=== PATIENT | male | born 1930 | race Caucasian/White ===

== ENCOUNTER 2016-11-04 20:28 | Inpatient (IN) | payer MEDICARE ==
[~2016-11-04] VITALS: Ht 170.2 cm; Wt 98.5 kg
[2016-11-04] VITALS (8 sets, daily range): BP systolic 64–155; BP diastolic 28–98; PULSE 53–61; RESP 11–20; O2SAT 90–100
[~2016-11-04 20:28] MED LIST: ASPI325T32 PO; CARV3.122 PO; GLPZ5T PO; LOSA100T29 PO; OMEP20CA11 PO; ROSU40TA20 PO
--- NOTE | 2016-11-04 20:49 | ED.REPORT ---
HPI-General Illness Date of Service Nov 04, 2016 ED Provider: Keith Mcgowan MD Pt is an 85 y/o male anticoagulated on Brilinta (anti-platelet) w/ a hx of NIDDM , cardiomyopathy, CAD, HTN, chronic back pain, presenting to the ED with his due to generalized weakness onset today. The patient has been having worsening trouble walking which the believes is attributed to his chronic back pain but today was so generally weak that he was unable to stand for himself. He c/o associated SOB, lightheadedness. He has apparently had no PO fluids today. His children say that there has been some speech change and change in mental status but not specifically dysarthria or dysphasia. The patient denies headache, blurred vision, CP, abdominal pain, focal numbness or weakness. The patient has been taking Tylenol repeatedly for his chronic back pain. He was seen by his PCP and diagnosed with pneumonia about 2 weeks ago with good resolve of his symptoms. CODE STATUS: FULL CODE History is limited due to patient condition. Nursing Notes Stated Complaint: BACK PAIN Chief Complaint: Neuro Symptoms/ Deficits Nursing Notes Reviewed: Yes Allergies: Coded Allergies: clopidogrel (Verified Allergy, Intermediate, 05/31/16) Scheduled Aspirin (Aspirin) 325 Mg Tablet 325 MG PO DAILY Carvedilol (Carvedilol) 3.125 Mg Tablet 3.125 MG PO BID Glipizide (Glipizide) 5 Mg Tablet 2.5 MG PO BID Losartan Potassium (Losartan Potassium) 100 Mg Tablet 50 MG PO DAILY Omeprazole (Omeprazole) 20 Mg Capsule.dr 20 MG PO DAILY Rosuvastatin Calcium (Rosuvastatin Calcium) 40 Mg Tablet 40 MG PO DAILY General Time Seen by MD: 20:48 Chief Complaint Weakness Hx Obtained From: Patient, Spouse, Other family... Arrived By: Wheelchair Sudden in Onset?: No Onset Occurred: 1 day ago Symptom Duration: Since onset Severity: Current: No pain currently Severity: Maximum: No pain Past Medical History Past Medical History Anticoagulated on Brilinta Chronic back pain Type II diabetes Cardiomyopathy History coronary disease Hypertension Peripheral vascular disease Paralyzed vocal cord GERD Past Surgical History Bioprosthetic valve replacement (2007) Smoking History Former Smoker Social History Alcohol Use: Denies alcohol use Other Social History: , Local resident Ambulatory Status Independent Review of Systems Unable to Obtain ROS Patient condition, Mental status Full Review of Systems Constitutional: Reports: Weakness - generalized, Denies: Chills, Fever Respiratory: Reports: Shortness of breath, Denies: Non-productive cough Cardiovascular: Denies: Chest pain Neurologic: Reports: Confusion, Lightheaded, Problem walking, Denies: Focal weakness, Headache, Numbness Complete sys rev & neg: except as marked. Physical Exam Vital Signs Vital Signs Date Time Temp Pulse Resp B/P Pulse Ox O2 Delivery O2 Flow Rate FiO2 11/04/16 22:08 113/34 11/04/16 22:06 60 18 75/28 96 Room Air 11/04/16 21:28 56 18 93/46 96 Room Air 11/04/16 20:34 36.7 53 20 64/38 90 Room Air Initial VS: Reviewed, Vital signs abnormal Head / Eyes: Atraumatic, Normocephalic, PERRL ENT: Mucous membranes moist, Conjunctiva normal, No scleral icterus Neck: Supple, Full range of motion Cardiovascular: Regular rate & rhythm, Heart sounds normal, Intact distal pulses Extremities: Vascular intact, Neuro intact, No swelling, No tenderness Skin: Warm, Dry, No cyanosis General/Constitutional: Awake, Alert, Cooperative Distress / Hydration: Positive: Distress severe Appearance / Presentation: Positive: Pale Hypotensive Somnolent Respiratory / Chest: Atraumatic, No stridor, No chest tenderness, No chest wall deformity, No crepitus Resp Distress / Stridor: Positive: Resp distress mild Bilateral crackles Abdomen: Atraumatic, Soft, Non-tender, No guarding, No rebound Rectum / Perineum: Atraumatic Geoffrey melena present Neurologic: Oriented X3, Speech NL, No motor deficits, No sensory deficits Somnolent Interpretation & Diagnostics Lab Results Interpretation Result Diagram: 11/04/16205711/04/162057 Test 11/04/16 20:58 11/04/16 21:01 11/04/16 21:25 White Blood Count 12.1th/mm3 (3.8-10.1) Red Blood Count 2.70mil/mm3 (4.40-5.80) Hemoglobin 7.3g/dL (13.8-17.2) Hematocrit 22.9% (41.0-50.0) Mean Corpuscular Volume 84.8fL (81-100) Mean Corpuscular Hemoglobin 27.0pg (27.0-35.0) Mean Corpuscular Hemoglobin Concent 31.9% (32.0-37.0) Red Cell Distribution Width 15.7% (12.3-15.4) Platelet Count 145bil/L (150-400) Neutrophils (%) (Auto) 81.4% (40-74) Lymphocytes (%) (Auto) 10.1% (14-46) Monocytes (%) (Auto) 8.2% (4-12) Eosinophils (%) (Auto) 0% (0-5) Basophils (%) (Auto) 0.1% (0-3) Prothrombin Time 16.1sec (8.1-12.5) Prothromb Time International Ratio 1.49ratio Activated Partial Thromboplast Time 38.0sec (22.8-33.0) Sodium Level 133mEq/L (134-144) Potassium Level 6.3mEq/L (3.5-5.2) Chloride Level 96mEq/L (97-108) Carbon Dioxide Level 13mmol/L (18-29) Blood Urea Nitrogen 109mg/dL (8-27) Creatinine 7.45mg/dL (0.76-1.27) Estimat Glomerular Filtration Rate 7mL/min (>59) Glucose Level 66mg/dL (60-99) Calcium Level 8.2mg/dL (8.5-10.1) Total Bilirubin 0.3mg/dL (0.0-1.2) Aspartate Amino Transf (AST/SGOT) 234U/L (0-50) Alanine Aminotransferase (ALT/SGPT) 183U/L (0-44) Alkaline Phosphatase 102U/L (25-160) Troponin T 0.134ug/L (0.0-0.011) Total Protein 7.3g/dL (6.4-8.4) Albumin 2.9g/dL (3.4-5.0) Procalcitonin 0.39ng/mL (0.00-0.08) D-Dimer 1.1mg/L (<0.50) Pro-B-Type Natriuretic Peptide 8099pg/mL (0-486) Lactic Acid Level 3.9mmol/L (0.4-2.0) ECG Interpretation ECG Interpretation: Sinus rhythm rate 60 Prolonged NJ interval Time: 21:40 Interpreted by: ED physician Normal ECG Interpretation: No acute ischemic changes X-Ray Chest Interpretation Chest Xray Interpretation: IMPRESSION: Mild increased retrocardiac left basilar opacities possibly low-grade aspiration/atelectasis versus developing pneumonia. Please correlate clinically. Background chronic interstitial disease as before Dictated by: Jason Nelson M.D. on 11/04/2016 at 21:44 Approved by: Jason Nelson M.D. on 11/04/2016 at 21:45 View: Portable, 1 view Interpretation / Wet Read by: Interpret - Radiologist CT Head Interpretation IMPRESSION: Chronic left frontal and right parietal encephalomalacia in addition to age-related involutional changes. No acute intracranial process. Dictated by: Jason Nelson M.D. on 11/04/2016 at 21:14 Approved by: Jason Nelson M.D. on 11/04/2016 at 21:16 Study: Head CT no contrast Interpretation / Wet Read by: Interpret - Radiologist US FAST Exam No hydronephrosis Exam Performed by: ED physician Exam Interpreted by: ED physician Re-Eval/Medical Decision Med Decision/Clinical Course 85-year-old male history of CVA, CT, CAD, valve replacement, diabetes, gastric ulcers presenting with altered mental status times one day. On arrival blood pressures were low with maps in the 30s. Given IV fluids improved to maps of mid 50s. Hemoglobin is 7 down from previous of 10. Grossly melanotic stools. Potassium is 6.3. Creatinine is 7 and BUN/creatinine is 109 which is significantly increased from previous baseline of creatinine 1.5. Patient denied any chest pain. Troponins were 0.13. No EKG changes. I consulted GI who recommended PPI drip, octreotide. I also gave 2 units PRBCs. Gave 3 L normal saline. They will perform endoscopy in the morning. Consulted cardiology who recommended trending troponins. Consulted nephrology who recommended medical management, placing Mcmillan and medical management for hyperkalemia. Admitted to ICU. Time of Eval: 21:20 Patient Status: Condition improved Re-Evaluation/Progress Note: BP increasing. Will continue to administer fluids. Time of Eval: 21:30 Patient Status: Condition improved Re-Evaluation/Progress Note: BP increased. Feeling better. Rectal exam performed after CBC resulted. Geoffrey melena present. Time of Eval: 21:42 Patient Status: Condition improved Re-Evaluation/Progress Note: Pt rechecked. Informed pt of need for admission for GI bleed. Pt understands and agrees with plan for admission. All questions addressed. Time of Eval: 22:09 Re-Evaluation/Progress Note: Pt rechecked. Hospitalist has seen the patient while in the ED. After CMP is resulted it is now apparent that he has acute renal failure. Will consult nephrology. Consultation #1: Referral / Consult Name: Vanessa Avelar MD Call Returned at: 21:36 Die Cutter: Agrees with eval, Agrees with plan Note: Case discussed with GI. Recommends admit to ICU, they will perform endoscopy in the morning. Consultation #2: Referral / Consult Name: Stephenie Shetty MD Consulted With: Hospitalist Call Returned at: 21:51 Die Cutter: Will see patient, Agrees with eval, Agrees with plan, Accepts admit Consultation #3: Referral / Consult Name: Telma Winters MD Consulted With: Nephrology Call Returned at: 22:14 Die Cutter: Agrees with eval, Agrees with plan Note: Requests Mcmillan catheter be placed. Will follow case. Consultation #4: Referral / Consult Name: Bebo Alcocer MD Consulted With: Cardiology Call Returned at: 22:17 Die Cutter: Agrees with eval, Agrees with plan Note: Agrees with plan to trend troponins. Counseled Regarding: Diagnosis, Lab results, Need for admission Discharge & Departure Primary Impression: GI bleed GI bleed type/associated pathology: melena Qualified Code: K92.1 - Melena Additional Impressions: Acute renal failure Acute renal failure type: unspecified Qualified Code: N17.9 - Acute kidney failure, unspecified Elevated troponin Altered mental status Altered mental status type: unspecified Qualified Code: R41.82 - Altered mental status, unspecified Disposition: ADMITTED TO HOSPITAL Discharge Condition All VS Reviewed: Yes Condition: Improved Referrals: Juan Hollis MD (PCP) Crit Care Except Billable Proc Time Spent: 75-104 minutes Services Performed: Patient management by me, Time spent at bedside, Reviewing test results, Reviewing imaging, Discussing patient care, Documentation in record, Time with fam/surrogate Scribe Attestation Portions of this note were transcribed by Morris Perez. I, Dr. Mcgowan, personally performed the history, physical exam and medical decision-making; I reviewed and confirmed the accuracy of the information in the transcribed note. Signed by Angel Lutz, 11/04/162129 copies to: Juan Hollis MD, Ben M MD Nov 04, 2016 20:49 MORRIS PEREZ Nov 04, 2016 20:54
[2016-11-04] MEDS ORDERED: 0.9% Sodium Chloride 1,000 ML IV ONE ×3 (20:58→22:00)
[2016-11-04 21:01] LABS: BASOPHILS % (AUTO) 0.1 % (0-3); EOSINOPHILS % (AUTO) 0 % (0-5); MONOCYTES % (AUTO) 8.2 % (4-12); Mean Corpuscular Volume 84.8 fL (81-100); NEUTROPHILS % (AUTO) 81.4 % (40-74); Platelet Count 145 bil/L (150-400)
--- NOTE | 2016-11-04 21:18 | DRSVH ---
PROCEDURE: CT BRAIN WITHOUT CONTRAST ([id number]) INDICATIONS: Stroke TECHNIQUE: Noncontrast 4.5 mm thick angled axial sections acquired from the foramen magnum to the vertex, with c oronal reformats. COMPARISON: [facility], CT, CT BRAIN WO CON, 06/01/2016, 8:38. FINDINGS: Image quality: Excellent. CSF spaces: Basal cisterns are patent. No extra-axial fluid collections. The ventricles are symmet oneal in size and shape. Brain: No intracranial bleeds or masses. Chronic left frontal lobe encephalomalacia. There is also chronic right parietal encephalomalacia There is cerebral volume loss for age, with resultant ventric ular and sulcal prominence. There are periventricular and deep white matter chronic small vessel isc hemic changes. There is intracranial internal carotid artery atherosclerosis. Skull and face: Calvarium and visualized facial bones appear intact, without suspicious lesions. Num erous scalp vascular calcifications Sinuses: Left sphenoid sinus disease. IMPRESSION: Chronic left frontal and right parietal encephalomalacia in addition to age-related involutional worthy ges. No acute intracranial process. Dictated by: Jason Nelson M.D. on 11/04/2016 at 21:14 Approved by: Jason Nelson M.D. on 11/04/2016 at 21:16
[2016-11-04 21:24] LABS: INR 1.49 ratio
[2016-11-04] MEDS ORDERED: Pantoprazole 4 mg/mL 10 mL Inj IVPUSH ONE (21:25)
[2016-11-04] MEDS ORDERED: Pantoprazole Inj 80 MG, Pharmacy To Mix 1 EA in 0.9% Sodium Chloride 80 ML IV ONE ×2 (21:40)
--- NOTE | 2016-11-04 21:47 | DRSVH ---
PROCEDURE: X-RAY CHEST ONE VIEW, PORTABLE ([id number]) INDICATIONS: dyspnea TECHNIQUE: One view of the chest was acquired. COMPARISON: [facility], CR, XR CHEST 1VW (PORTABLE), 05/31/2016, 18:43. FINDINGS: Surgical changes and devices: Unchanged appearance Lungs and pleura: No pleural effusions or pneumothorax. Diffuse scarring/atelectasis. Mildly increas ed retrocardiac opacities. Mediastinum: Mediastinal contours appear normal. Heart size is normal. Bones and chest wall: No suspicious bony lesions. Overlying soft tissues appear unremarkable. IMPRESSION: Mild increased retrocardiac left basilar opacities possibly low-grade aspiration/atelecta sis versus developing pneumonia. Please correlate clinically. Background chronic interstitial disease as before Dictated by: Jason Nelson M.D. on 11/04/2016 at 21:44 Approved by: Jason Nelson M.D. on 11/04/2016 at 21:45
[2016-11-04] MEDS ORDERED: Ondansetron 2 mg/mL 2 mL Inj IVPUSH PRN ×2 (21:55→22:20)
[2016-11-04] MEDS ORDERED: Alum-Mag Hydrox-Simeth 30 mL Suspension PO PRN ×2 (21:55→22:20)
[2016-11-04 21:56] LABS: TROPONIN T 0.134 ug/L (0.0-0.011)
[2016-11-04] MEDS ORDERED: Octreotide Inj 500 MCG in 0.9% Sodium Chloride 100 ML IV ONE (22:00)
[2016-11-04] MEDS: Pantoprazole Inj 80 MG in 0.9% Sodium Chloride 80 ML IV SCH (22:20)
[2016-11-04] MEDS ORDERED: Polyethylene Glycol (PEG) 17 Gm Powder PO PRN (22:20)
[2016-11-04] MEDS ORDERED: Calcium GLUCO 10% (Gm) 1 Gm/10 mL 50 mL Inj IV ONE (22:25)
[2016-11-04] MEDS ORDERED: Insulin Human REGular-Omnicell 100 Unit/mL IV ONE (22:25)
[2016-11-04] MEDS ORDERED: Albuterol-Ipratropium 3 mL Inhalation Solution NEB PRN (22:25)
[2016-11-04] MEDS ORDERED: Calcium GLUCOnate 10% (Gm) 1 Gm/10 mL Inj IV ONE (22:55)
--- NOTE | 2016-11-04 23:15 | NUR ---
Admit Pt arrived on the floor with 1st unit of blood infusing, 02, Octreotide and Protonix infusing. Family arrived with patient. Pt sleepy but awakens easy with light stimuli. Pt BOIS [employer]TE and not wearing hearing aide. Spouse has his hearing aide. Pt mumbles and has a hoarse voice when replying to questions. He is able to answer questions appropriately at times.
--- NOTE | 2016-11-04 23:18 | PCM.HPMED ---
Subjective Date of Service Nov 04, 2016 Primary Provider: Admitting Physician: Stephenie Shetty MD Primary Care Physician: Juan Hollis MD Attending Physician: Stephenie Shetty MD Admit Status: From the Emergency Department Chief Complaint: Weakness History of Present Illness: Patient is an 85 y.o. 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 Patient presented to the ED today due to his noticing onset of generalized weakness today. Son is present during the examination he noted that other than ambulation limited due to chronic back pain , he stated his father is other lomeli able to ambulate with minimal assistance, today he reported that his mother had to help the patient off of the toilet due to severe weakness. Additionally, patient's son noted that patient has been taking Tylenol repeatedly for his chronic back pain, change in speech and mental status, reports decreased fluid intake, and recent history of bronchitis and pneumonia with completion of outpatient antibiotic therapy. Patient noted SOB, lightheadedness. He denies abdominal pain, numbness, tingling, change in vision, fever, chills, dysuria. 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 Limited due to Patient deafness Allergies Coded Allergies: clopidogrel (Verified Allergy, Intermediate, 05/31/16) Home Medications Aspirin (Aspirin) 325 Mg Tablet 325 MG PO DAILY Carvedilol (Carvedilol) 3.125 Mg Tablet 3.125 MG PO BID Glipizide (Glipizide) 5 Mg Tablet 2.5 MG PO BID Losartan Potassium (Losartan Potassium) 100 Mg Tablet 50 MG PO DAILY Omeprazole (Omeprazole) 20 Mg Capsule.dr 20 MG PO DAILY Rosuvastatin Calcium (Rosuvastatin Calcium) 40 Mg Tablet 40 MG PO DEVORA PMH Anticoagulated on Brilinta Chronic back pain Type II diabetes Cardiomyopathy History coronary disease Hypertension Peripheral vascular disease Paralyzed vocal cord GERD Surgical History Bioprosthetic valve replacement (2007) Family History Family history of CAD Social History Hx Alcohol Use: No Hx Substance Use: No Smoking Status: Former Smoker Exam Vital Signs Vital Sign - Last Date Time Temp Pulse Resp B/P Pulse Ox O2 Delivery O2 Flow Rate FiO2 11/04/16 22:18 61 16 89/33 100 Room Air 11/04/16 20:34 36.7 Exam General: Alert, Oriented X3, mild confusion present, Cooperative, mild Acute Distress Head: Normocephalic, atraumatic. External ears normal. Eyes: PERRLA, EOMI. Anicteric sclerae. Pale conjunctiva Mouth: Mouth Normal, Mucous Membranes Dry/[place] Neck: Neck supple with full range of motion. Chest & Lungs: Deminished breath sounds at bases, diffuse crackles at lung bases , mild diffuse insp/exp wheezes and rhonchi. Cardiovascular: Regular Rate/Rhythm, Normal S1, Normal S2, No Murmurs/Rubs/ Gallops Abdomen: Non-tender, Non-distended, No masses, Hypoactive bowel tones, Soft, no rebound tenderness, no vila's sign, no melena, non incarcerated reducible umbilical hernia, no inguinal hernia Musculoskeletal: limited Range of Motion in lower extremities b/l Extremities: No cyanosis/clubbing/edema bilaterally, delayed cap refill, peripheral pulses 2/4 in upper extremities, weak peripheral pulses in lower extremities. Neurological: Grossly Neurologically Intact, mumbled Speech, Strength Normal 4/ 4 ext, Sensation Intact, able to follow commands but limited due to hearing loss. Lab and Diagnostics Labs Laboratory Tests Test 11/04/16 20:58 11/04/16 21:01 11/04/16 21:25 11/05/16 03:40 White Blood Count 12.1th/mm3 (3.8-10.1) 9.8th/mm3 (3.8-10.1) Red Blood Count 2.70mil/mm3 (4.40-5.80) 2.87mil/mm3 (4.40-5.80) Hemoglobin 7.3g/dL (13.8-17.2) 7.9g/dL (13.8-17.2) Hematocrit 22.9% (41.0-50.0) 24.7% (41.0-50.0) Mean Corpuscular Volume 84.8fL (81-100) 86.1fL (81-100) Mean Corpuscular Hemoglobin 27.0pg (27.0-35.0) 27.5pg (27.0-35.0) Mean Corpuscular Hemoglobin Concent 31.9% (32.0-37.0) 32.0% (32.0-37.0) Red Cell Distribution Width 15.7% (12.3-15.4) 15.4% (12.3-15.4) Platelet Count 145bil/L (150-400) 121bil/L (150-400) Neutrophils (%) (Auto) 81.4% (40-74) 85.9% (40-74) Lymphocytes (%) (Auto) 10.1% (14-46) 7.6% (14-46) Monocytes (%) (Auto) 8.2% (4-12) 6.1% (4-12) Eosinophils (%) (Auto) 0% (0-5) 0% (0-5) Basophils (%) (Auto) 0.1% (0-3) 0.1% (0-3) Prothrombin Time 16.1sec (8.1-12.5) Prothromb Time International Ratio 1.49ratio Activated Partial Thromboplast Time 38.0sec (22.8-33.0) Sodium Level 133mEq/L (134-144) 145mEq/L (134-144) Potassium Level 6.3mEq/L (3.5-5.2) 4.8mEq/L (3.5-5.2) Chloride Level 96mEq/L (97-108) 93mEq/L (97-108) Carbon Dioxide Level 13mmol/L (18-29) 15mmol/L (18-29) Blood Urea Nitrogen 109mg/dL (8-27) 98mg/dL (8-27) Creatinine 7.45mg/dL (0.76-1.27) 6.12mg/dL (0.76-1.27) Estimat Glomerular Filtration Rate 7mL/min (>59) 9mL/min (>59) Glucose Level 66mg/dL (60-99) 316mg/dL (60-99) Calcium Level 8.2mg/dL (8.5-10.1) 6.3mg/dL (8.5-10.1) Total Bilirubin 0.3mg/dL (0.0-1.2) Aspartate Amino Transf (AST/SGOT) 234U/L (0-50) Alanine Aminotransferase (ALT/SGPT) 183U/L (0-44) Alkaline Phosphatase 102U/L (25-160) Troponin T 0.134ug/L (0.0-0.011) Total Protein 7.3g/dL (6.4-8.4) Albumin 2.9g/dL (3.4-5.0) Procalcitonin 0.39ng/mL (0.00-0.08) Acetaminophen Level 27.1ug/mL Rx (10-25) D-Dimer 1.1mg/L (<0.50) Pro-B-Type Natriuretic Peptide 8099pg/mL (0-486) Lactic Acid Level 3.9mmol/L (0.4-2.0) 0.6mmol/L (0.4-2.0) Magnesium Level 2.3mg/dL (1.6-2.6) Hold Montero Top Tube Received (Received) Microbiology 11/04/16 Blood Culture, Received Pending 11/04/16 Adenovirus DNA (PCR), Received Pending 11/04/16 Coronavirus 229E PCR, Received Pending 11/04/16 Coronavirus HKU1 PCR, Received Pending 11/04/16 Coronavirus NL63 PCR, Received Pending 11/04/16 Coronavirus OC43 PCR, Received Pending 11/04/16 Influenza Type A (PCR), Received Pending 11/04/16 Influenza Type B (PCR), Received Pending 11/04/16 Human Metapneumovirus (PCR) (SUSHILA), Received Pending 11/04/16 Rhinovirus (PCR)(SUSHILA), Received Pending 11/04/16 Parainfluenza Virus Type 1 (PCR), Received Pending 11/04/16 Parainfluenza Virus Type 2 (PCR), Received Pending 11/04/16 Parainfluenza Virus Type 3 (PCR), Received Pending 11/04/16 Parainfluenza Virus Type 4 (NAAT), Received Pending 11/04/16 Respiratory Syncytial Virus (PCR)NC, Received Pending 11/04/16 Chlamydia pneumoniae (PCR), Received Pending 11/04/16 Mycoplasma pneumoniae DNA Detection, Received Pending Result Diagram: 11/04/16205711/04/162057 X-Rays, CTs and MRIs CT BRAIN WITHOUT CONTRAST IMPRESSION: Chronic left frontal and right parietal encephalomalacia in addition to age- related involutional changes. No acute intracranial process. Dictated by: Jason Nelson M.D. on 11/04/2016 at 21:14 Approved by: Jason Nelson M.D. on 11/04/2016 at 21:16 Chest X-Ray IMPRESSION: Mild increased retrocardiac left basilar opacities possibly low- grade aspiration/atelectasis versus developing pneumonia. Please correlate clinically. Background chronic interstitial disease as before Dictated by: Jason Nelson M.D. on 11/04/2016 at 21:44 Approved by: Jason Nelson M.D. on 11/04/2016 at 21:45 12-lead ECG ECG Interpretation: Sinus rhythm rate 60 Prolonged MN interval Time: 21:40 Interpreted by: ED physician Normal ECG Interpretation: No acute ischemic changes Assessment & Plan Patient is an 85 y.o. 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 Patient presented to the ED 11/04/16 due to his noticing onset of generalized weakness today. Patient was hypovolemic and hypotensive on presentation with acute GI bleed, new onset BINTA, altered mental status, weakness, initial labs showed leukocytes with left shift, transaminitis. Repeat examination post 2 Units PRBC 0330 11/05/16, worsening abdominal distension noted, typmanic diffusely to percussion, diffuse crackles in all lung ruiz, cap refill delayed, patient BP 67/30, HR 100's, initiated aggressive fluid resuscitation, NE IV started, ABG showed metabolic acidosis with hypercarbia, Hemoglobin 7.9 up from 7.3, Anesthesia consulted to start central line and intubate patient, CT Abdomen and pelvis ordered. GI consulted prior to scope patient needs to be hemodynamically stable, recommend CT scan ABD /pelvis. 1. Acute upper GI bleed - 2 Units PRBC - H/H trend Q4 - Maintenance fluids IV NS @ 150 mls/hr - Protonix drip - CT abdomen and pelvis ordered - GI consulted will see the patient tomorrow and proceed with endoscopy, we appreciate their time and expertise 2. BINTA, prerenal azotemia - Likely due to dehydration in the face of sepsis, unclear if patient was taking NSAIDs in addition to Tylenol - Continue IVF resuscitation - Repeat BMP - Repeat CMP in AM - Nephrology consulted, recommend fluid resuscitation and Mcmillan Cath, will see patient in AM, we appreciate their time and expertise 3. Elevated troponin, acute, present on admission - Patient's condition is not amenable to anticoagulation, History of CHF with preserved EF - Trend Troponin Q6 - Stat EKG as needed - Keep patient on tele - Morphine for pain PRN - Last Echo EF 60%, - Repeat ECHO in AM 4. Sepsis, acute, present on admission - source of infection, pneumonia per CXR - On admission to ED patient is hypertensive, tachycardic, mildly tachypenic, WBC >12,000 - Blood cultures ordered - Start antibiotic therapy Ceftrixone IV - Repeat CXR in AM - Viral PCR pending - Lactic Acid 3.9, - Procalcitonin 0.39 - Legionella urine pending - Strep pneumo urine pending 5. Shock, acute, present on admission - Due to sepsis and GI bleed - Patient given 3 L NS IV in ED and 2 units PRBC - Continued maintenance fluids IV NS @ 150 mls/hr - Patient required additional 2 units PRBC and 1 L bolus to maintain pressures - Patient BP not maintained with fluid and PRBC - Central line pressers started NE and Vasopresson per protocol 6. Hypercarbic Respiratory failure, not present on admission - ABG pH 7.05, HCO3 15, CO2 59, - On exam patient noted to be somnolent and O2 sat drops to mid - low 80's, when patient falls asleep - Anesthesia consulted for intubation and central line, we appreciate their expertise and time. - maintenance sedation with Precedex intially started, unable to maintain blood pressure, switched to Propofol - Pain control with Fentanyl drip per protocol 7. Transaminitis, acute - Likely due to hypoperfusion in addition Tylenol toxicity - Acetaminophen tox level ordered elevated 27 - Start N-actylcystine dose per pharmacy Chronic Conditions 8. Non-insulin dependent DM - Med correctional scale 9. History of CVA - Hold anticoagulation medication 10. Low back arthritis - Hold Tylenol - pain control as above #6 11. HTN - Hold BP jessica 12. CHF with pEF - Hold anticoagulation - Repeat ECHO in AM CODE STATUS: FULL CODE DVT Prophylaxis: SCDs HIGH RISK MEDICATIONS: Morphine, propofol, fentanyl Discussed patient condition, assessment, plan, prognosis, goals of care with patient's >45 min. Patient's at this time wishes to be full code per patient's wishes. Patient's acknowledge and voiced understanding of poor prognosis associated with multi-organ failure. Patient is admitted under inpatient status with expected length of stay greater than 2 midnights due to severity of presenting symptoms, risk of adverse event, and complexity of treatment plan. Pain Evaluation: Adequate Pain Control GI Prophylaxis: Proton Pump Inhibitor VTE Prophylaxis Indicated: CCU Admission VTE Prophylaxis: SCDs VTE Mechanical Devices: Intermittant Pneumatic CD Resuscitation Status: CPR: Attempt Resuscitation Attending Statement Pt seen and examined by myself and agree with above plan. LARA CALZADA DO Nov 04, 2016 23:18 Stephenie Shetty MD Nov 06, 2016 05:53
[2016-11-05] VITALS (17 sets, daily range): BP systolic 64–173; BP diastolic 21–58; PULSE 48–62; RESP 14–20; O2SAT 95–100
[2016-11-05] MEDS ORDERED: Calcium GLUCO 10% (Gm) Inj 1 GM in 0.9% Sodium Chloride 50 ML IV ONE ×2 (00:35→15:20)
[2016-11-05] MEDS ORDERED: Norepineph 8,000 mCg/250 mL NS 8,000 MCG in IV Premix 1 EACH IV SCH (00:36)
[2016-11-05] MEDS: 0.9% Sodium Chloride 1,000 ML IV SCH ×5 (01:02→23:45)
[2016-11-05] MEDS ORDERED: DEXTROSE 5% IV ONE ×3 (01:30→06:30)
[2016-11-05] MEDS ORDERED: ACETYLCYSTEINE IV ONE ×3 (01:30→06:30)
[2016-11-05] MEDS: cefTRIAXone Inj 1,000 MG in Dextrose 5% Minibag Plus 50 ML IV SCH (03:19)
[2016-11-05] MEDS ORDERED: TICA60TA PO (03:22)
[2016-11-05] MEDS ORDERED: Norepinephrine 8,000 mCg/250 mL NS Premix IV ONE (03:34)
[2016-11-05] MEDS: Norepineph 8,000 mCg/250 mL NS 8,000 MCG in IV Premix 1 EACH IV SCH ×2 (03:45→18:32)
--- NOTE | 2016-11-05 03:45 | ABG ---
DateTimeAnalyzed 02:36:00 -_ pH ____7.059 - 7.350 7.450 pCO2 ___59.0__ -mmHg 35.0 45.0 pO2 ___85.0__ -mmHg 69.0 116 HCO3- ___15.9__ -mmol/L 22.0 26.0 ABE __-13.7__ -mmol/L -2.0 2.0 tHb ____8.6__ -g/dL O2Hb ___91.7__ -% COHb ____0.9__ -% MetHb ____1.3__ -% sO2 ___93.8__ -% 25.0 FIO2 ___40.0__ -% Drawn By MM - Date/Time Notified____ 03:44:00 -_ Spontaneous_RR ___14.0__ -b/min Liter_Flow ____5.0__ -L/min Oxygen Device 1 _OXY MASK - Notified By MM - Notified Whom DR ARNOLD - B 763 -mmHg tO2 ___11.2__ -Vol% Lj test N/A -
[2016-11-05 03:50] LABS: BASOPHILS % (AUTO) 0.1 % (0-3); EOSINOPHILS % (AUTO) 0 % (0-5); MONOCYTES % (AUTO) 6.1 % (4-12); Mean Corpuscular Hemoglobin 27.5 pg (27.0-35.0); Mean Corpuscular Volume 86.1 fL (81-100); NEUTROPHILS % (AUTO) 85.9 % (40-74); Platelet Count 121 bil/L (150-400)
[2016-11-05] MEDS ORDERED: fentaNYL-PF 50 mCg/mL 2 mL Inj ONE (04:02)
[2016-11-05] MEDS ORDERED: Dexmedetomidine 400 mCg/100 mL NS Premix IV ONE (04:03)
[2016-11-05] MEDS ORDERED: DEXMEDETOMIDINE 400 MCG/100 ML IV PRN ×2 (04:10)
[2016-11-05] MEDS ORDERED: fentaNYL-PF 50 mCg/mL 2 mL Inj IV PRN (04:10)
[2016-11-05] MEDS ORDERED: NS IV PRN ×2 (04:10)
[2016-11-05] MEDS ORDERED: Glucose 40% Oral Gel 15 Gm Tube PO PRN (04:25)
[2016-11-05] MEDS ORDERED: 0.9% Sodium Chloride 250 ML ONE (04:27)
[2016-11-05 04:35] LABS: Magnesium 2.3 mg/dL (1.6-2.6)
[2016-11-05] MEDS ORDERED: Propofol 10,000 mCg/mL 100 mL Inj ONE (05:09)
[2016-11-05] MEDS: Vasopressin Inj 20 UNIT in 0.9% Sodium Chloride 100 ML IV SCH ×2 (06:05→15:25)
[2016-11-05] MEDS ORDERED: Lactated Ringer's 0 ML IV ONE (06:21)
--- NOTE | 2016-11-05 06:40 | NUR ---
High K/Hypotension/Change in Condition Md aware of varying bp. Pt gets restless and at times unable to obtain accurate blood pressure. Pt mostly hypotensive with map below 60 even after finishing 1st unit of blood. Resident MD made aware and came up to assess pt. Pt anxious and restless in bed. He is able to answer some questions appropriately at times but noted to more confused. Hospitalist also made aware of pt's condition. 2nd unit of blood was done and IV fluids infusing at the same without any effect on low BP. Pt noted getting more confused and agitated. Pt trying to remove IV and lines. Md aware and came up to assess pt. New orders noted. ABG done. Pt started on Norepinephrine via PIV while awaiting central line with improvement with bp. Anesthesiologist proceed with intubation, central line placement, and ART line. See chart for consents. Improvement of Blood pressure noted with intervention. High K Pt given IV REgular insulin, D50 and Calcium gluconate. Repeat K afterwards 4.8. Pt unable to take Kayexalate. Addendum: 11/05/16 at 1004 by ANDRES VELAZQUEZ RN OG tubed place with yellow clear secretions.
--- NOTE | 2016-11-05 07:02 | PROCED ---
[address] [address] PROCEDURE NOTE PATIENT: YVONNE CANTOR : 1930 MR#: [id number] ADMIT: 11/04/2016 JOB ID: [id number] DATE OF SERVICE: 11/05/2016 PREOPERATIVE DIAGNOSIS(ES): 1. Gastrointestinal bleed. 2. Hypovolemia. 3. Altered mental status. POSTOPERATIVE DIAGNOSIS(ES): 1. Gastrointestinal bleed. 2. Hypovolemia. 3. Altered mental status. SURGEON: Darnell Lozano MD PROCEDURE: Central line placement. HISTORY: The patient is an 85-year-old gentleman, who presented to [facility] with a GI bleed. He is currently hypotensive with blood pressures in the 50-80 systolic range. He was obtunded prior to intubation and is now receiving sedation. A central line is requested by the ICU staff for IV fluid administration, medication administration and central venous pressure monitoring. DESCRIPTION OF PROCEDURE: The patient was sterilely scrubbed and a sterile procedure was used including hat, mask, sterile gown and sterile gloves. After scrubbing the patient, a sterile drape was placed over the procedure site. After a 2nd sterile scrub of the field, ultrasound was used to identify the right internal jugular vein. Finder needle with 1% lidocaine was used to numb the skin and to determine depth and direction needle placement to the internal jugular vein. Next, a hollow introducer needle was placed through the skin and, under ultrasound guidance, was placed into the right internal jugular vein. A guidewire is placed through the introducer needle and verified to be in the internal jugular vein with ultrasound. The needle was removed and the insertion site was dilated. A 3-lumen central line was then placed over the guidewire and held in place at the 18 cm sofy at the skin level. The lumens of the central line were flushed. Next, a sterile dressing was placed over the central line to secure it in place. The position of the central line was confirmed using ultrasound, and venous blood was removed from the central line to ensure the central line was in the internal jugular vein. CVP was transduced and was approximately 18 cm of water. ADDITIONAL INFORMATION: Chest x-ray was taken of the patient to confirm central line placement. Chest x-ray revealed the tip of the central catheter is in the mid superior vena cava.
[2016-11-05] MEDS ORDERED: Rocuronium 10 mg/mL 5 mL Inj ONE (07:07)
[2016-11-05] MEDS ORDERED: Propofol 10,000 mCg/mL 20 mL Inj ONE (07:07)
--- NOTE | 2016-11-05 07:07 | PROCED ---
[address] [address] PROCEDURE NOTE PATIENT: YVONNE CANTOR : 1930 MR#: [id number] ADMIT: 11/04/2016 JOB ID: [id number] DATE OF SERVICE: 11/05/2016 PREOPERATIVE DIAGNOSIS(ES): 1. Gastrointestinal bleed. 2. Hypovolemia. 3. Altered mental status. POSTOPERATIVE DIAGNOSIS(ES): 1. Gastrointestinal bleed. 2. Hypovolemia. 3. Altered mental status. PROCEDURE: Arterial line placement. SURGEON: Darnell Lozano MD HISTORY: The patient is an 85-year-old gentleman, suffering from GI bleed. He is currently hypovolemic with hypotension. He is admitted to the ICU and is having blood and fluid infusion, and he is on pressors. A radial arterial line is requested by the ICU staff for blood pressure monitoring and ABG sampling. DESCRIPTION OF PROCEDURE: The patient was sterilely scrubbed and a sterile procedure was used including a hat, mask and sterile gloves. A sterile drape was placed over the insertion site. After a 2nd sterile scrub, the left radial artery was identified using ultrasound. After approximately three passes, the left radial artery was cannulated using a sterile wire guided technique under ultrasound guidance. A 20-gauge catheter was advanced into the radial artery and pulsatile arterial blood flow was observed briefly prior to line attachment. The insertion site was sterilely covered with an OpSite, and arterial pressure and waveform was verified via pressure transducer. The line was withdrawn and then flushed with sterile saline to ensure no bubbles.
--- NOTE | 2016-11-05 07:14 | PROCED ---
[address] [address] PROCEDURE NOTE PATIENT: YVONNE CANTOR : 1930 MR#: [id number] ADMIT: 11/04/2016 JOB ID: [id number] DATE OF SERVICE: 11/05/2016 PREOPERATIVE DIAGNOSIS(ES): 1. Gastrointestinal bleed. 2. Hypotension. 3. Altered mental status. POSTOPERATIVE DIAGNOSIS(ES): 1. Gastrointestinal bleed. 2. Hypotension. 3. Altered mental status. PROCEDURE: Emergent tracheal intubation. SURGEON: Darnell Lozano MD INDICATION: The patient is an 85-year-old gentleman who presented today to [facility] with brisk GI bleed. He has hypovolemia, hypotension and altered mental status. He is currently in the ICU receiving blood and other fluid administration, and pressors to maintain his blood pressure. He is obtunded and somewhat combative, but weak, and there is concern by the ICU staff for airway protection. The ICU staff has requested placement of an endotracheal tube for airway protection. PROCEDURE IN DETAIL: The patient was pre-oxygenated with 100% oxygen and then slowly given 2 mL or 4 mg of etomidate, and blood pressure response was observed. Next, a glide scope with a #4 blade was placed into the patient's oropharynx to determine the visibility of vocal cords. Vocal cords were a grade 1 view. However, the patient did have slight movements of the shoulders and neck. The glide scope was removed and mask ventilation was continued with 100% oxygen. Next, 4 mg of etomidate was given with 30 mg of rocuronium. After approximately 1 minute of bag-mask ventilation, a 2nd laryngoscopy was performed with a glide scope for blade. There was a grade 1 view of the endotracheal cords, and the endotracheal tube was passed easily under glide scope visualization. Endotracheal tube location was confirmed with direct visualization, fogging in the tube and measuring of CO2 gas in the air. The endotracheal tube was secured in position by the respiratory staff. Using pressors, the patient's blood pressure was stable at 100 mmHg or higher during the procedure, and oxygen saturations were greater than 97% throughout the procedure. Post intubation, the patient's blood pressure did decrease to approximately 80 systolic, and pressors were titrated to maintain blood pressure. Subsequently, the endotracheal tube placement was verified using chest x-ray, and the tip of the endotracheal tube was seen on x-ray to be approximately 2 cm above the elba. SPECIMENS: None. COMPLICATIONS: None apparent. BLOOD LOSS: None.
--- NOTE | 2016-11-05 07:25 | DRSVH ---
PROCEDURE: X-RAY ABDOMEN, ONE VIEW ([id number]) INDICATIONS: GI bleed TECHNIQUE: One view of the abdomen acquired. COMPARISON: None. FINDINGS: Surgical changes and devices: Patient is status post median sternotomy and valvular replacement. Naso gastric tube is present projected over the gastric fundus. Bowel: Bowel gas pattern is normal. Soft tissues: No suspicious abdominal calcifications. Visualized solid organ contours appear normal in size. Bones: No suspicious bony lesions. Severe degenerative changes are present throughout the lumbar sp ine. IMPRESSION: No acute intra-abdominal findings. Dictated by: Miya Mattson M.D. on 11/05/2016 at 7:22 Approved by: Miya Mattson M.D. on 11/05/2016 at 7:23
--- NOTE | 2016-11-05 07:39 | DRSVH ---
PROCEDURE: X-RAY CHEST ONE VIEW, PORTABLE ([id number]) INDICATIONS: intubation TECHNIQUE: One view of the chest was acquired. COMPARISON: [facility], CR, XR CHEST 1VW (PORTABLE), 11/04/2016, 21:02. FINDINGS: Surgical changes and devices: The patient has been intubated and endotracheal tube is approximately 4 .4 cm above the leba. There is a central venous catheter, tip of which is projected over the lower SVC. The patient is status post median sternotomy and valvular replacement. Lungs and pleura: Patchy opacities are present at the left lung base obscuring the left hemidiaphragm . No pleural effusion or pneumothorax. Mediastinum: Mediastinal contours appear normal. Heart size is normal. Bones and chest wall: No suspicious bony lesions. Overlying soft tissues appear unremarkable. IMPRESSION: 1. Tubes and lines as above. 2. Left basilar radiopacity. Differential considerations include aspiration, atelectasis, and infecti on. Dictated by: Miya Mattson M.D. on 11/05/2016 at 7:37 Approved by: Miya Mattson M.D. on 11/05/2016 at 7:38
[2016-11-05] MEDS: Insulin LISPRO 300 Unit/3 mL Inj SUBQ SCH ×4 (08:00→22:40)
[2016-11-05] MEDS: fentaNYL 2,500 mCg/250 mL 2,500 MCG in IV Premix 1 EACH IV SCH (08:06)
--- NOTE | 2016-11-05 08:17 | ABG ---
DateTimeAnalyzed 08:05:00 -_ pH ____7.210 - 7.350 7.450 pCO2 ___32.2__ -mmHg 35.0 45.0 pO2 179 -mmHg 69.0 116 HCO3- ___12.4__ -mmol/L 22.0 26.0 ABE __-14.2__ -mmol/L -2.0 2.0 tHb ___10.8__ -g/dL O2Hb ___96.6__ -% COHb ____0.9__ -% MetHb ____1.4__ -% sO2 ___98.9__ -% 25.0 FIO2 ___50.0__ -% PEEP ____5.0__ -cmH2O Vt __550.0__ -L Drawn By RC - Date/Time Notified____ 08:16:00 -_ Spontaneous_RR ___18.0__ -b/min Oxygen Device 1 VENTILATOR - Notified By RC - Notified Whom FRANKLIN COOK,RN - B 763 -mmHg tO2 ___15.0__ -Vol% Lj test N/A -
--- NOTE | 2016-11-05 09:03 | NUR ---
JAMMER HOOKER evaluation order received. Patient is intubated. JAMMER HOOKER evaluation is not appropriate at this time. Order placed on hold. Discussed with RN who agreed. Please reconsult JAMMER HOOKER when patient is extubated.
--- NOTE | 2016-11-05 09:14 | DRSVH ---
PROCEDURE: CT CHEST, ABDOMEN AND PELVIS WITHOUT CONTRAST ([id number]) INDICATIONS: abd pain TECHNIQUE: After the administration of oral contrast, 5 mm thick sections acquired from the lung apices to the s ymphysis pubis. 5 mm thick coronal and sagittal reformats acquired, with additional 7 mm coronal MIP reformats through the lungs. For radiation dose reduction, the following was used: automated expos ure control, adjustment of mA and/or kV according to patient size. COMPARISON: [facility], MR, ANGIO RUNOFF (PNL), 01/03/2012, 20:21. FINDINGS: Image quality: Excellent. CHEST: Lungs and pleura: There is severe centrilobular emphysema with an apical predominance. There are smal l bilateral low density pleural effusions and consolidation in the dependent lung bases bilaterally. Mediastinum: Heart size is normal. No pericardial effusion. No mediastinal adenopathy by CT size c riteria. Thoracic aorta and central pulmonary arteries are normal in size. Dense atheromatous calcif ications are present throughout the thoracic aorta. There are coronary artery calcifications. Patient is status post aortic valvular replacement. An NG tube is present within the esophagus. Esophagus is normal in caliber. No hiatal hernia. The patient is intubated and endotracheal tube is 6 cm above t he elba. Chest wall: Patient is status post median sternotomy. No axillary or supraclavicular adenopathy by s ize criteria. Thyroid gland is unremarkable. ABDOMEN: Solid organs: Liver and spleen are normal in size. There is a small amount of hepatosplenic free flu id. There likely subcentimeter gallstones or sludge within the gallbladder fundus and cystic duct. Th e gallbladder wall is not well characterized. Pancreas is moderately atrophic. No adrenal nodules. Both kidneys are normal in size, without hydronephrosis or nephrolithiasis. There is moderate bilater al perinephric fat stranding. Peritoneum and bowel: An NG tube is present with the tip in the gastric fundus. Small and large jose c l loops are normal in caliber and wall thickness. The appendix is thin walled. No free fluid or air. Nodes and vessels: No retroperitoneal or mesenteric adenopathy by size criteria. Aorta and inferior vena cava are normal in size. Dense atheromatous calcifications are present throughout the abdomina l aorta with resultant severe infrarenal abdominal aortic stenosis. Miscellaneous: There is a small fat-containing umbilical hernia. PELVIS: Genitourinary: The bladder is decompressed and a Mcmillan catheter is present. Miscellaneous: No inguinal adenopathy. There are small bilateral fat-containing inguinal hernias. Bones: No suspicious bony lesions. No vertebral body compression fractures. A mixed sclerotic/lyti c lesion is present within the right femoral neck likely unchanged from the MRI dated 01/03/12. The ch ronicity of this finding suggests a benign lesion. IMPRESSION: 1. Low-density bilateral pleural effusions and basilar consolidation suspicious for pneumonia. 2. Small amount of intra-abdominal ascites. No pneumoperitoneum. 3. Normal appendix. 4. Extensive aortic atherosclerosis and coronary artery calcification. Findings suspicious for high-g rade infrarenal abdominal aortic stenosis. However, lack of intravenous contrast limits evaluation. 5. Severe centrilobular emphysema. Dictated by: Miya Mattson M.D. on 11/05/2016 at 9:02 Approved by: Miya Mattson M.D. on 11/05/2016 at 9:13
[2016-11-05] MEDS: Pantoprazole Inj 80 MG in 0.9% Sodium Chloride 80 ML IV SCH ×2 (09:25→20:14)
[2016-11-05 10:47] LABS: APPEARANCE,URINE HAZY (CLEAR,HAZY); COLOR,URINE YELLOW (YELLOW); PH,URINE 5.5 (5.0-8.0)
[2016-11-05 10:48] LABS: OCCULT BLOOD,URINE MODERATE (NEGATIVE); UROBILINOGEN,URINE NORMAL (NORMAL)
[2016-11-05] MEDS ORDERED: Azithromycin Inj 500 MG in Dextrose 5% w/Vial Mate 250 ML IV SCH (11:55)
[2016-11-05] MEDS ORDERED: Calcium Chl 10% (Gm) Inj 1 GM in Dextrose 5% 100 ML IV ONE (11:55)
--- NOTE | 2016-11-05 12:08 | PCM.CHPMED ---
Subjective Date of Service: Nov 05, 2016 Primary Physician: Admitting Physician: Stephenie Shetty MD Primary Care Physician: Juan Hollis MD Attending Physician: Stephenie Shetty MD Chief Complaint: Chief Complaint: Shock History of Present Illness: Pulmonology Consult: Dr. Sánchez Peterson Attending. Requesting Physician Dr. Oliver. Mr. Marrufo is a 85 year old gentleman medical history of CAD (on Brilinta - antiplatelet therapy), HTN, NIDDM and chronic back pain presented to the ED secondary to generalized weakness 2 days. Per patient's patient had been having a steady decline and activity level and ability to ambulate for the last few days (which she initially attributed to his chronic back pain) and culminated on 11/04/2016 with the inability to stand by himself and shortness of breath with lightheadedness. Leading up to hospital admission patient was reportedly seen by primary care provider diagnosed with pneumonia given an outpatient regimen of antibiotics possibly penicillin per . He had had a productive cough with peralta sputum though no reported fevers or other symptoms. He had also been taking increasing amounts of Tylenol for his chronic back pain approximately 1 g every 4 hours. In the Emergency Department patient was noted to have adam melena, he received EGD on 11/05/2016 which reportedly showed no active bleed. H&H on admission was 7.3 and has risen after receiving 2 units packed RBCs. Social history: At time of interview patient intubated and sedated interview conducted with patient's . Patient's states that she has also been sick with the "crud" she describes as a productive cough though denies fevers. She denies any other sick contacts. Patient is a former smoker having quit in 1987. Denies alcohol use. 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 There are no pets in the home. Patient has reportedly received Pneumovax this year. No travel history outside [facility] in years. PMH Past Medical History CVA, Anticoagulated on Brilinta Chronic back pain Type II diabetes Cardiomyopathy History coronary disease Hypertension Peripheral vascular disease Paralyzed vocal cord GERD Bedside Blood Glucose: 94 Surgical History Bioprosthetic valve replacement (2007) Allergies: Coded Allergies: clopidogrel (Verified Allergy, Intermediate, 05/31/16) Social History Hx Alcohol Use: NoHx Substance Use: No Smoking Status: Former Smoker Exam Vital Signs Vital Sign - Last Date Time Temp Pulse Resp B/P Pulse Ox O2 Delivery O2 Flow Rate FiO2 11/05/16 09:00 48 112/34 96 45 11/05/16 07:47 35.6 17 11/05/16 07:10 Mechanical Ventilator 11/04/16 23:25 6 Intake and Output 11/04/16 11/04/16 11/05/16 Cumulative From/Thru 15:00 23:00 07:00 11/04/16 20:34 - 11/05/16 01:30 Intake Total 2000 ml 817 ml 2817 ml Balance 2000 ml 817 ml 2817 ml IV Total 2000 ml 100 ml 2100 ml Packed Cells 717 ml 717 ml Additional Information: General: Patient intubated and sedated. HEENT: Pupils equal, round. Anicteric sclerae, pale conjunctivae. Endotracheal tube in place Neck: Supple with full range of motion. No jugular venous distension. Central line in place right IJ Cardiovascular: Regular Bradycardic rate. No murmurs appreciated Pulmonary: Patient ventilated, good air movement. Slight inspiratory crackles. Abdomen: Soft, slightly distended, not firm. No appreciable fluid wave. Extremities: No cyanosis or edema. Left arterial line. Left AC line. Right forearm line. Skin: Normal temperature, poor turgor. No rash, ulcers, or subcutaneous nodules appreciated. Neurological: Pt sedated Lab and Diagnostics Result Diagram: 11/05/16 1115 11/05/16 0340 X-Rays, CTs and MRIs . CT BRAIN WITHOUT CONTRAST IMPRESSION: Chronic left frontal and right parietal encephalomalacia in addition to age- related involutional changes. No acute intracranial process. CT CHEST, ABDOMEN AND PELVIS WITHOUT CONTRAST IMPRESSION: 1. Low-density bilateral pleural effusions and basilar consolidation suspicious for pneumonia. 2. Small amount of intra-abdominal ascites. No pneumoperitoneum. 3. Normal appendix. 4. Extensive aortic atherosclerosis and coronary artery calcification. Findings suspicious for high-grade infrarenal abdominal aortic stenosis. However, lack of intravenous contrast limits evaluation. 5. Severe centrilobular emphysema. X-RAY ABDOMEN, ONE VIEW IMPRESSION: No acute intra-abdominal findings. X-RAY CHEST ONE VIEW, PORTABLE 11/04/2016 IMPRESSION: Mild increased retrocardiac left basilar opacities possibly low- grade aspiration/atelectasis versus developing pneumonia. Please correlate clinically. Background chronic interstitial disease as before X-RAY CHEST ONE VIEW, PORTABLE 11/05/2016 IMPRESSION: 1. Tubes and lines as above. 2. Left basilar radiopacity. Differential considerations include aspiration, atelectasis, and infection. Additional Diagnostics: . Echocardiogram Report Interpretation Summary This is a limited echocardiogram ordered. The left ventricular cavity is small. There is mild-moderate concentric left ventricular hypertrophy. The ejection fraction is estimated to be 60-65%. Assessment of diastolic parameters indicates normal left ventricular diastolic function and normal filling pressures. The right ventricle grossly appears normal in size with probable normal systolic function. There is moderate to severe mitral annular calcification. There is a porcine aortic valve. The aortic valve is not well visualized. No other echocardiographic abnormalities seen. Assessment & Plan Assessment 85 year old male with PMH of CAD, HTN, CAD (on Brilinta anticoagulation) admitted for septic shock with possible underlying pneumonia, GI Bleed, BINTA. 1. Hypovolemic shock. Present on admission. Ongoing. Pt requiring blood pressure support. Last BP 112/35 (61), Diastolic BP remains low suggesting septic shock. - Possible sources include pneumonia. Other etiologies of his shock include blood loss from as of yet unidentified source. - H&H on Admit 7.3, currently 10.4. Pt received 3 units PRBC's. Additional unit on hold - 3L NS in ED. Currently on 150ml/hr. NS - EGD showed no evidence of Bleed - CT ABD showed small amount of intra-abdominal ascites and small amount of hepatosplenic free fluid - Nor epi 0.1 mcg/kg/min is not achieving pressure control. This is most likely due to Pt's home med Coreg saturating his alpha receptors. - 1mg Calcium gluconate to help reverse non selective beta marialuisa. - Followed by 5mg Glucagon and Intralipid. - Vasopressin 0.03 units/min - Vigileo in place 2. Pneumonia, present on admission. Ongoing. - CT suspicious for pneumonia - WBC 12.1 on admit - Procalcitonin 0.39 and repeat 0.4 - ETT initially placed for airway protection. - Currently receiving Ceftriaxone, Linezolid, Doxycycline - Azithromycin D/C secondary to renal failure - PCR positive for Coronovirus - Appropriate cultures and serologies pending 3. GI Bleed. Present on admission. Ongoing. - Report of melena in stool. - Held home meds Brilinta and ASA - EGD showed no evidence of bleed, possibility of a Dieulafoy's lesion - H&H has trended up after receiving 3 units of PRBC's - Lactic acid elevated on admit 3.9, repeat values 0.6,0.8 - Protonix drip - Additional PRBC on hold - GI following 4. BINTA, present on admission. Ongoing. Pt denies and NSAID use aside from ASA - Cr on admit 7.45, 6.12,6.92 - Pt initially made a minimal amount of urine then remained anuric - CT showed decompressed bladder and no hydronephrosis or nephrolithiasis - Mcmillan cath in place, - NS 150/hr - Nephrology following 5. Transaminitis, present on admission. Ongoing - Pt reported was taking 1g Tylenol every 4 hours for the last few days - Acetaminophen 27.1 on 11/04/2016 at 21:00hrs - AST 234, 228. ALT 183, 192 - CT showed subcentimeter gallstones or sludge within the gallbladder fundus and cystic duct. The gallbladder wall is not well characterized - Total Bili 0.3 - Acetylcysteine/Dextrose. Pharmacy to dose 6. Hypercarbic Respiratory failure, not present on admission. - Intubated and Sedated with propofol - ABG's have shown slight improvement in Ph 7.052 on admit -7.21,7.161. pCO2 36 from 59. cHCO3 12.4 from 15.9 (Pt remains in renal failure) - Pain control with Fentanyl 7. NIDDM. - Currently on sliding scale - Consider drip if Glucose levels maintain elevation 9. Emphysema. Present on admission - CT showed severe centrilobular emphysema. - Bronchodilators 9. Elevated troponin, acute, present on admission. In the setting of Renal failure. - History of CAD, on dual antiplatelet therapy - Initial troponin 0.134, no repeat available - Telemetry - Echo EF 60%-65%. LVH. - ECG from ED read as prolonged NE interval and incomplete RBBB. Artifact in leads I,II,III Problems: Pain Evaluation: Adequate Pain Control GI Prophylaxis: Proton Pump Inhibitor VTE Prophylaxis Indicated: CCU Admission VTE Prophylaxis: SCDs VTE Mechanical Devices: Intermittant Pneumatic CD Resuscitation Status: CPR: Attempt Resuscitation Attending Statement The patient was seen and examined together with Dr. Monroe on 11/05/2016 and I agree with the history, exam and plan as outlined in the note above. BRANDEN MONROE DO Nov 05, 2016 12:08 Sánchez Peterson MD Nov 08, 2016 11:12 - Hold Tylenol - pain control as above #6 11. HTN - Hold BP jessica 12. CHF with pEF - Hold anticoagulation - Repeat ECHO in AM Problems: Pain Evaluation: Adequate Pain Control GI Prophylaxis: Proton Pump Inhibitor VTE Prophylaxis Indicated: CCU Admission VTE Prophylaxis: SCDs VTE Mechanical Devices: Intermittant Pneumatic CD Resuscitation Status: CPR: Attempt Resuscitation BRANDEN MONROE DO Nov 05, 2016 12:08 VTE Prophylaxis: SCDs VTE Mechanical Devices: Intermittant Pneumatic CD Resuscitation Status: CPR: Attempt Resuscitation BRANDEN MONROE DO Nov 05, 2016 12:08 GI Prophylaxis: Proton Pump Inhibitor VTE Prophylaxis Indicated: CCU Admission VTE Prophylaxis: SCDs VTE Mechanical Devices: Intermittant Pneumatic CD Resuscitation Status: CPR: Attempt Resuscitation BRANDEN MONROE DO Nov 05, 2016 12:08
--- NOTE | 2016-11-05 12:19 | DRSVH ---
[facility] [address] [place] [address] Echocardiogram Report Name: YVONNE CANTOR HStudy Date: 10/25 [place] ht: 67 in Hospital Exam Location: [facility] ht: 192 lb Gender: Male BSA: 2.0 m2 : 1930 Age: 85 yrs BP: 124/34 mmHg Reason For Study: GI BLEED, HX OF CHF Ordering Physician: HOSPITALIST [facility] Performed By: Mervat Burnham Referring Physician: DR. SAEED, DR. DORMAN Interpretation Summary This is a limited echocardiogram ordered. The left ventricular cavity is small. There is mild-moderate concentric left ventricular hypertrophy. The ejection fraction is estimated to be 60-65%. Assessment of diastolic parameters indicates normal left ventricular diastolic function and normal filling pressures. The right ventricle grossly appears normal in size with probable normal systolic function. There is moderate to severe mitral annular calcification. There is a porcine aortic valve. The aortic valve is not well visualized. No other echocardiographic abnormalities seen. Procedure: This is a limited echocardiogram ordered. The study quality was technically difficult. A contrast injection of Definity was performed to improve assessment of LV function. A total of 5 cc of contrast was given. Comparison is made with the echocardiogram of 06-01-2016. The patient was in a bradycardic rhythm during the exam. The patient is intubated. No complications noted with the Definity Contrast. Left Ventricle: The left ventricular cavity is small. There is mild- moderate concentric left ventricular hypertrophy. The left ventricular ejection fraction is grossly normal. The ejection fraction is estimated to be 60-65%. There are no focal wall motion abnormalities. Spectral Doppler of the mitral valve shows a normal E/A wave ratio. Assessment of diastolic parameters indicates normal left ventricular diastolic function and normal filling pressures. Right Ventricle: The right ventricle grossly appears normal in size with probable normal systolic function. Atria: There is mild biatrial enlargement. Mitral Valve: There is moderate to severe mitral annular calcification. The mitral valve leaflets are mildly calcified. Aortic Valve: The aortic valve is not well visualized. There is a porcine aortic valve. Tricuspid Valve: The tricuspid valve leaflets are thin and pliable. Great Vessels: The IVC has a measurement of 23 mm. Pericardium/ Pleura There is no pericardial effusion. MMode/2D Measurements & Calculations LVIDd IVC diam LV simmons. diameter/BSA LV sys. diameter/BSA : 4.3 cm : 2.3 cm (cm/m^2): 2.2 (cm/m^2): 1.2 LVIDs : 2.4 cm FS: 43.9 % IVSd : 1.cm LVPWd : 1.3 cm Doppler Measurements & Calculations MV E max laura MV E/A: 1.0 MV dec time MV P1/2t max laura : 120.6 cm/sec MV A dur : 0.25 sec MV A max laura : 0.18 sec : 115.7 cm/sec MVA(P1/2t): 2.9 cm2 MV P1/2t: 75.4 msec Reading Physician:12:18 PM
--- NOTE | 2016-11-05 12:25 | ABG ---
DateTimeAnalyzed 11:17:00 -_ pH ____7.161 - 7.350 7.450 pCO2 ___36.1__ -mmHg 35.0 45.0 pO2 139 -mmHg 69.0 116 HCO3- ___12.4__ -mmol/L 22.0 26.0 ABE __-15.1__ -mmol/L -2.0 2.0 tHb ___10.6__ -g/dL O2Hb ___96.1__ -% COHb ____1.0__ -% MetHb ____1.3__ -% sO2 ___98.4__ -% 25.0 FIO2 ___45.0__ -% PEEP ____5.0__ -cmH2O Set_RR ___14.0__ -b/min Vt __400.0__ -L Drawn By RC - Date/Time Notified____ 12:25:00 -_ Spontaneous_RR ___14.0__ -b/min Oxygen Device 1 VENTILATOR - Notified By RC - Notified Whom ___DR.KENDREGAN - B 764 -mmHg tO2 ___14.6__ -Vol% Lj test N/A -
[2016-11-05 12:26] LABS: BASOPHILS % (AUTO) 0.2 % (0-3); EOSINOPHILS % (AUTO) 0.3 % (0-5); MONOCYTES % (AUTO) 7.4 % (4-12); Mean Corpuscular Hemoglobin 28.5 pg (27.0-35.0); Mean Corpuscular Volume 84.8 fL (81-100); NEUTROPHILS % (AUTO) 80.7 % (40-74); Platelet Count 153 bil/L (150-400)
[2016-11-05] MEDS ORDERED: Chlorhexidine 0.12% 473 mL Oral Solution MUC_MEMBRM PRN (12:30)
[2016-11-05] MEDS: Linezolid Inj 600 MG in IV Premix 1 EACH IV SCH ×2 (13:27→20:21)
--- NOTE | 2016-11-05 13:53 | NUR ---
Social Work: Initial Assessment D: Per EMR review, pt is an 85 year old male admitted for GI Bleed. Pt is [employer] Medicare with no LTC insurance or VA benefits. PCP is Juan Hollis MD. NOK Is Zena Marrufo, , . Advanced directives not completed- REGULATORY AFFAIRS ASSOCIATE will follow up with information when pt is extubated. Raedmit score not entered at this time. REGULATORY AFFAIRS ASSOCIATE met with pt's at bedside. Sw role and contact information provided. See initial assessment. Pt lives in [place] with his spouse. Pt is I with ADLs at baseline and uses a cane for ambulation. Pt continues to drive and has never had HH. Pt has a history at [facility]. Pt's states that she will not allow the pt to be discharged to a skilled rehab facility due to a poor experience in the past. Pt is currently vented and sedated. SW and d/c needs are not known at this time. A: Pt who is I at baseline. P: Evolving; REGULATORY AFFAIRS ASSOCIATE to continue to follow pt's clinical progress and assist with discharge planning as needs become known. MONIK Aguilar
--- NOTE | 2016-11-05 14:45 | CONS ---
[address] [address] CONSULTATION REPORT PATIENT: YVONNE CANTOR : 1930 MR#: [id number] ADMIT: 11/04/2016 JOB ID: [id number] DATE OF SERVICE: PHYSICIAN REQUESTING CONSULT: ER physician. INDICATION: Melena, anemia, and hypotension. History is obtained from the chart and from the patient's at the bedside. 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 The patient had a recent stroke and a carotid endarterectomy was deferred by the patient, and therefore, he was placed on Brilinta. Per the chart, he also has a history of cardiomyopathy, coronary artery disease, hypertension, history of heart valve replacement. He was brought to the emergency department last night by his with complaints of generalized weakness and acute worsening of his chronic lower back pain. His denied that he had any melena or hematemesis at home. She also denies that he had any diarrhea. In addition to Brilinta, he does take two baby aspirin daily. She also reports that he does take Tylenol for lower back pain she did not quantify but several times daily for the past 1 week. He was noted to be hypotensive in the emergency department and with impairment in mentation. His hemoglobin on admission was 7.3. His baseline hemoglobin was, from previous admissions, in the 10 range. His electrolytes on admission showed an elevated BUN of 100 and creatinine of 7.45. His LFTs were elevated with an AST of 234, ALT of 183. Troponin T was positive at 0.134. He was started on octreotide as well as a Protonix drip and then transferred to the intensive care unit. Several hours later, I had received a phone call from the intensive care unit from the resident physician, who had stated that the patient was hypotensive. At that time, I recommended that he needed further resuscitation and to obtain a CT of the abdomen and pelvis. I was also told that he was not having any active lower GI bleeding or hematemesis while in the ICU. Upon my arrival to the ICU this morning, patient was intubated and sedated. He had received 2 units of packed red blood cells and his repeat CBC showed a hemoglobin of 7.9, hematocrit 24.7, with a platelet count of 121. His INR was 1.49. He was started on vasopressin and norepinephrine. PAST MEDICAL HISTORY: As mentioned above, includes chronic back pain, type 2 diabetes, cardiomyopathy, coronary artery disease, hypertension, peripheral vascular disease, gastroesophageal reflux. SURGICAL HISTORY: Includes bioprosthetic valve replacement. FAMILY HISTORY: Coronary artery disease. SOCIAL HISTORY: No history of alcohol use. He is a former smoker. HOME MEDICATIONS: Include: 1. Aspirin. told me 81 mg twice a day. 2. Carvedilol 3.125 mg. 3. Glipizide. 4. Losartan. 5. Omeprazole. 6. Rosuvastatin. 7. Calcium. 8. Brilinta. ALLERGIES: CLOPIDOGREL. REVIEW OF SYSTEMS: Not obtainable. PHYSICAL EXAMINATION: His pulse was 65, blood pressure was 125/30, respiratory rate 18-20. He was on mechanical ventilation and O2 saturation was 100%. Generally: He was intubated and sedated. HEENT: Mild pallor, no icterus. Oropharynx with ET tube and OG tube in mouth. Chest exam: Clear to auscultation anteriorly. Cardiovascular exam: S1, S2 heard. Abdomen was distended, soft, decreased bowel sounds. Extremities: Edema. His laboratory data as per the EMR. Abdominal x-ray that was obtained showed no acute intra-abdominal findings. ASSESSMENT AND PLAN: An 85-year-old gentleman with multiple medical problems, presenting with acute anemia. With his history of being on Brilinta and NSAID use, this is concerning for possible peptic ulcer disease versus esophagitis versus possible lower GI bleed. Will plan for urgent endoscopy to further evaluate. In the meantime, would continue octreotide and Protonix drip and continue to follow H and H closely. For his Elevated aminotransferases would recommend checking viral hepatitis panel his tylenol level is minimally elevated and his repeat LFT's show minimal improvement however with his elevated INR this is concerning for liver injury. continue to follow LFT's will start empirically n acteyl cystine IV Elevated LFT could also be result of hypotension though would have expected them to be much higher however likely multifactorial. Elevated INR -nutritional deficiency vs liver injury -trial of Vit K 10mg for 3 days Thank you for allowing me to participate in the patient's care. If you have any further questions, please do not hesitate to contact me. ALEIDAD
--- NOTE | 2016-11-05 15:51 | PCM.PNMED ---
Subjective Date of Service Nov 05, 2016 Subjective Patient seen and examined at bedside . Medical record reviewed . Labs data, x-rays and admitting notes/plan of care reviewed. Patient remains intubated, sedated and on pressor support./ Exam Vital Signs Vital Sign - Last Date Time Temp Pulse Resp B/P Pulse Ox O2 Delivery O2 Flow Rate FiO2 11/05/16 12:30 40 11/05/16 12:00 35.5 49 14 133/43 98 Mechanical Ventilator 11/04/16 23:25 6 Intake and Output 11/04/16 11/04/16 11/05/16 Cumulative From/Thru 15:00 23:00 07:00 11/04/16 20:34 - 11/05/16 01:30 Intake Total 2000 ml 817 ml 2817 ml Balance 2000 ml 817 ml 2817 ml IV Total 2000 ml 100 ml 2100 ml Packed Cells 717 ml 717 ml Exam General: Intubated and sedated. Patients withdraws to noxious stimuli HEENT: KELSEY, normocephalic Mouth : Endotracheally intubated . Neck: Supple, no JVD, trachea is midline Cardiovascular: S1S2, regular rate and rhythm. No murmurs , no gallop Chest : No deformity, normal excursion Lung : Good air entry B/l scattered crackles b/l. Abdomen: Distended, non tender. No pal[ mass. BS wnl b/l Extremities: No cyanosis or edema. Neurological: Sedated. IVs and Medications Medications Reviewed: Medications were reviewed in detail Lab and Diagnostics Result Diagram: 11/05/16 1115 11/05/16 1115 X-Rays, CTs and MRIs CT BRAIN WITHOUT CONTRAST IMPRESSION: Chronic left frontal and right parietal encephalomalacia in addition to age- related involutional changes. No acute intracranial process. Dictated by: Jason Nelson M.D. on 11/04/2016 at 21:14 Approved by: Jason Nelson M.D. on 11/04/2016 at 21:16 Chest X-Ray IMPRESSION: Mild increased retrocardiac left basilar opacities possibly low- grade aspiration/atelectasis versus developing pneumonia. Please correlate clinically. Background chronic interstitial disease as before Dictated by: Jason Nelson M.D. on 11/04/2016 at 21:44 Approved by: Jason Nelson M.D. on 11/04/2016 at 21:45 12-lead ECG ECG Interpretation: Sinus rhythm rate 60 Prolonged LA interval Time: 21:40 Interpreted by: ED physician Normal ECG Interpretation: No acute ischemic changes Assessment & Plan Patient is an 85 y.o. 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 Patient presented to the ED 11/04/16 due to his noticing onset of generalized weakness today. Patient was hypovolemic and hypotensive on presentation with acute GI bleed, new onset BINTA, altered mental status, weakness, initial labs showed leukocytes with left shift, transaminitis. Acute blood loss Anemia : Due to upper GI bleed ? Hb 7.2 on admission . EGD shows no source of bleed. Discussed with GI Patient is s/p 3 units of PRBC transfusion . H/H now 06/26. Brilinta and Aspirin discontinued . Continue Protonix drip. GI following Septic Shock : Source likely pneumonia Patient did not respond to fluid resuscitation on presentation and was put on pressor support (norepinephrine) Cultures in process . Chest X-ray show pneumonia On Ceftriaxone . Zithromax added for atypical coverage . Nasal swab PCR positive for coronavirus Continue NS @ 150 ml/hr . Critical care consulted . Case discussed Community Acquired Pneumonia : As above Acute Renal Failure : No known history of kidney failure Likely secondary to sepsis, Hypotension and dehydration Renal US. Troponin trending down . Avoid nephrotoxic agents. Monitor renal function and electrolytes closely Nephrology consulted . Elevated troponin, acute, present on admission Due to demand ischemia, septic shock and renal failure . No report of angina Last Echo EF 60%, Repeat ECHO pending . Monitor troponin trend Acute Respiratory failure, Due to sepsis, pneumonia and acute toxic encephalopathy Intubated and on mechanical ventilation. Management per pulmonary Type II DM Sliding scale insulin . ICU protocol/ NGT feeding per nutrition Hypocalcemia : This is likely due to blood transfusions and massive fluid resuscitation . Ca was 8.2 on admission. Albumin 2.3 Corrected calcium is 7.6 . Still low . Calcium kl IV x 1 gr one dose . Obtain ionized calcium Chronic medical issues h/o CVA OA Type II diabetes Hypertension Critically ill patient . Plan of care as above and discussed with his at bedside Prognosis guarded cbc, bmp in am GI Prophylaxis: Proton Pump Inhibitor VTE Prophylaxis: SCDs VTE Mechanical Devices: Intermittant Pneumatic CD Resuscitation Status: CPR: Attempt Resuscitation Time spent 45 minutes Galo Oliver MD Nov 05, 2016 15:50 - pain control as above #6 11. HTN - Hold BP jessica 12. CHF with pEF - Hold anticoagulation - Repeat ECHO in AM CODE STATUS: FULL CODE DVT Prophylaxis: SCDs HIGH RISK MEDICATIONS: Morphine, propofol, fentanyl Discussed patient condition, assessment, plan, prognosis, goals of care with patient's >45 min. Patient's at this time wishes to be full code per patient's wishes. Patient's acknowledge and voiced understanding of poor prognosis associated with multi-organ failure. Patient is admitted under inpatient status with expected length of stay greater than 2 midnights due to severity of presenting symptoms, risk of adverse event, and complexity of treatment plan. GI Prophylaxis: Proton Pump Inhibitor VTE Prophylaxis: SCDs VTE Mechanical Devices: Intermittant Pneumatic CD Resuscitation Status: CPR: Attempt Resuscitation Galo Oliver MD Nov 05, 2016 15:50
[2016-11-05 16:36] LABS: BASOPHILS % (AUTO) 0.2 % (0-3); EOSINOPHILS % (AUTO) 0.5 % (0-5); MONOCYTES % (AUTO) 8.7 % (4-12); Mean Corpuscular Hemoglobin 28.2 pg (27.0-35.0); Mean Corpuscular Volume 85.6 fL (81-100); NEUTROPHILS % (AUTO) 78.5 % (40-74); Platelet Count 135 bil/L (150-400)
[2016-11-05] MEDS ORDERED: Doxycycline Inj 100 MG in Dextrose 5% Minibag Plus 100 ML IV SCH (16:55)
[2016-11-05] MEDS ORDERED: Glucagon 1 mg/mL Inj IV ONE ×2 (17:00)
[2016-11-05 17:03] LABS: Magnesium 2.2 mg/dL (1.6-2.6); Phosphorus 7.6 mg/dL (2.5-4.9)
--- NOTE | 2016-11-05 17:11 | ENDO ---
[address] [address] ENDOSCOPY PROCEDURE PATIENT: YVONNE CANTOR : 1930 MR#: [id number] ADMIT: 11/04/2016 JOB ID: [id number] PROCEDURE: Esophagogastroduodenoscopy. INDICATIONS: Suspected melena with associated anemia. The patient was in the ICU and was on mechanical ventilation and was on continuous pulse oximeter, telemetry and blood pressure monitoring with arterial line. After the informed consent was obtained from the patient's , the EGD scope was then inserted through the bite block and advanced without difficulty to the second portion of the duodenum. FINDINGS: 1. There was evidence of old blood scantily coating the 2nd and 3rd portion of the duodenum. I was able to clear this with irrigation and after complete suctioning of fluid, there was no further old blood or fresh blood seen. I advanced the scope as far as I can and no evidence of active bleeding was seen, however, the mucosa appeared to be coated with old blood. The EGD scope was then withdrawn back and the lumen was carefully examined. 2. The duodenal bulb appeared normal. 3. Normal-appearing pylorus. In the proximal antrum, there was a superficial erosion that was not actively bleeding. 4. Retroflexed views in the gastric body revealed retained food which appeared brown in color. 5. The cardia and fundus appeared normal. 6. No old or fresh blood was seen in the stomach. 7. The GE junction appeared unremarkable. 8. Normal-appearing esophagus. IMPRESSION: 1. Old blood in the 2nd and 3rd portion of the duodenum. 2. Superficial erosion in the antrum. RECOMMENDATIONS: 1. Discontinue octreotide drip. 2. Discontinue Protonix drip and place on Protonix 40 mg IV daily. 3. Continue to hold Brilinta and aspirin. 4. Recommend stat CT of the abdomen and pelvis. If no cause for anemia is seen, recommend consider tagged RBC scan versus CT angio. 5. On my rectal exam, I did not appreciate melena, however, did appreciate dark green stool. 6. Continue to follow H and H and transfuse blood products as needed. COMPLICATIONS: None. ESTIMATED BLOOD LOSS: 0.
--- NOTE | 2016-11-05 17:27 | ABG ---
DateTimeAnalyzed 17:17:44 -_ pH ____7.103 - pCO2 ___40.5__ -mmHg pO2 ___97.4__ -mmHg HCO3- ___12.7__ -mmol/L ABE __-15.6__ -mmol/L tHb ___10.3__ -g/dL O2Hb ___95.1__ -% COHb ____1.1__ -% MetHb ____0.7__ -% sO2 ___96.8__ -% FIO2 ___40.0__ -% PEEP ____8.0__ -cmH2O Vt __400.0__ -L Drawn By RC - Date/Time Notified____ 17:26:00 -_ Spontaneous_RR 14 -b/min Oxygen Device 1 VENTILATOR - Notified By RC - Notified Whom ___DR. KENDREGAN - B 761 -mmHg K+ ____4.4__ -mmol/L tO2 ___13.9__ -Vol% Lj test N/A -
[2016-11-05] MEDS ORDERED: Sodium Bicarb 8.4% Inj 150 MEQ in Dextrose 5% 1,000 ML IV SCH (17:35)
[2016-11-05] MEDS ORDERED: [UNRECOGNIZED DRUG - OTHER] IV ONE (17:55)
[2016-11-05] MEDS ORDERED: Albuterol-Ipratropium 3 mL Inhalation Solution NEB PRN (18:11)
--- NOTE | 2016-11-05 18:25 | CONS ---
[address] [address] CONSULTATION REPORT PATIENT: YVONNE CANTOR : 1930 MR#: [id number] ADMIT: 11/04/2016 JOB ID: [id number] DATE OF SERVICE: REQUESTING PHYSICIAN: Stephenie Shetty MD. REASON FOR CONSULTATION: Management of abnormal kidney function. CHIEF COMPLAINT: Progressive weakness. PRESENT ILLNESS: This is an 85-year-old, male with significant past medical history of coronary artery disease, bioprosthetic aortic valve replacement, type 2 diabetes, hypertension, chronic back pain who presented to the hospital due to progressive weakness. Patient now is intubated, sedated. I have gathered history from his and medical record. Apparently, over the past week, the patient started having respiratory symptoms including cough, sore throat. The patient was seen by his primary care physician and was given antibiotics, questionable Augmentin. Patient started taking it on night. The patient also has had worsening chronic back pain, in which he has been on Tylenol at least 1 g every 4 hours over the past week. Two days prior to the admission, the patient's mental status has been declining. He has poor oral intake. Yesterday his decided to bring him to the emergency department because of severe malaise. Initial blood pressure was 64/38. O2 sat of 90% on room air. The patient was found to have adam melena. He received IV Protonix injection, 3 L of normal saline bolus, octreotide and Protonix drips. The patient then transferred to the CCU. The patient later on became decompensated and required intubation. His initial BMP showed sodium of 133, potassium of 6.3, chloride of 96, bicarb 13, BUN of 109, creatinine of 7.45. AST 234, ALT 183. Troponin 0.134. After fluid resuscitation, his potassium came down to 4.8, BUN of 98, creatinine of 6.12. Overnight, the patient has not produced any urine. His initial hemoglobin was 7.3. He received 2 units of blood. Hemoglobin currently is 10.5. According to his , the patient has not seen any asbestos surveyor. His baseline serum creatinine was 1.48 in May 2016. PAST MEDICAL HISTORY: 1. Hypertension. 2. Type 2 diabetes. 3. Chronic back pain. 4. Chronic anticoagulant, on Brilinta. 5. Coronary artery disease. 6. Status post bioprosthetic aortic valve replacement. 7. Peripheral vascular disease. 8. GERD. 9. Status post bioprosthetic valve replacement in 2007. FAMILY HISTORY: Positive for coronary artery disease. SOCIAL HISTORY: Denies current use of alcohol, tobacco, illicit drugs. The patient is a former smoker. HOME MEDICATIONS: Aspirin, Coreg, glipizide, losartan, omeprazole, rosuvastatin, calcium, Brilinta. ALLERGIES: PLAVIX. REVIEW OF SYSTEMS: Unable to obtain. PHYSICAL EXAMINATION: Vitals: Temperature 35.5, pulse 50, respiratory 14, blood pressure 142/43. O2 sat 98% on FiO2 45%. General appearance: Intubated, sedated. HEENT: Mild pallor. Anicteric sclerae. No JVD. No lymphadenopathy. No thyroid enlargement. Triple lumen in place on the right IJ. Atraumatic. Dry mucous membranes. Heart: Regular rhythm. Bradycardic. No murmurs, rub or gallops. Lungs: Equal breath sounds bilaterally. On full ventilator support. Fine crackles at the bases. Abdomen: Soft, mild distention, decreased bowel sounds. No hepatosplenomegaly. Extremity: No lower extremity swelling. No cyanosis, no clubbing of fingers. LABORATORY: Sodium 145, potassium 4.8, chloride 93, bicarb 15, BUN 98, creatinine 6.12. Hemoglobin 10.4. CT abdomen showed low-density bilateral pleural effusions, bibasilar consolidation suspicious for pneumonia, extensive aortic atherosclerosis, suspicious for high-grade infrarenal abdominal aortic stenosis, severe centrilobular emphysema, small amount of intra-abdominal ascites. CT brain: Chronic left frontal and right parietal encephalomalacia in addition to age-related involutional changes. No acute intracranial process. ASSESSMENT: 1. Acute kidney injury, on chronic kidney disease. Patient came in with creatinine of 7. His baseline serum creatinine was 1.48. Of note, patient was taking Tylenol 1 g every 4 hours for over the past one week due to worsening low back pain. Of note, patient also was diagnosed with pneumonia. He received probably Augmentin from his family doctor. He is feeling weak over the past couple of days with poor oral intake. He came to the hospital with the initial blood pressure of 64/38. Currently patient has no urine output. The etiology of acute kidney injury could be due to severe acute tubular necrosis, possible cortical necrosis. The etiology of ATN includes Tylenol-induced and severe hypotension. Other differential diagnosis is acute interstitial nephritis from medications. 2. Anion gap metabolic acidosis. The etiology of anion gap metabolic acidosis is multifactorial, including uremia , lactic acidosis, pyroglutamic acid associated with Tylenol toxicity. 3. Suspected Tylenol toxicity. 4. Transaminitis. Could be due to Tylenol or shock liver. 5. Hypotension. Rule out sepsis, intravascular volume depletion and blood loss. Status post esophagogastroduodenoscopy. So far, shows no acute gastrointestinal bleed. 6. Community-acquired pneumonia. 7. Resolved hyperkalemia. PLAN: Continue supportive treatment. Keep mean arterial pressure over 65 mmHg. Continue IV antibiotics, broad-spectrum, until finalized culture reported. Avoid nephrotoxins. Continue to stabilize his hemodynamics. Likely, patient will need dialysis within 24 hours. We will monitor closely. Thank you for the consultation. CHARLETTE
[2016-11-05] MEDS ORDERED: Sodium Chloride LOK Flush 10 mL Syringe IVFLUSH PRN ×2 (18:35)
--- NOTE | 2016-11-05 20:05 | NUR ---
P:Resp, Hemodynamics,Social, Neuro I,E: Pt continues on the vent, suctioned infrequently for estrada thick secretions with scant blood. Sats high 90's on 40% FIO2. Pt continues on pressors, levophed at 0.1mcg and vasopressin at .03units. His BP has been low throughout the day with sys in the 90-100's and diastolics in the 30's. MD is aware of this. Pt has only 5cc UOP today. Pt's family have been in the room and his has been updated on plan of care and pt condition. Pt remains sedated with propofol and fentanyl. he does respond to interventions with grimaces but is otherwise resting comfortably. He has had one large dark stool today and 2 smaller BM.s Guiac stool is pending from earlier this afternoon. EGD was done in the room this morning with no obvious cause for any GI bleeding. Pt continues on protonix gtt but octreotide was DC'd per GI MD this am.
[2016-11-05] MEDS ORDERED: Linezolid Inj 600 MG in IV Premix 1 EACH IV SCH (20:30)
[2016-11-05] MEDS: Chlorhexidine 0.12% 473 mL Oral Solution MUC_MEMBRM SCH ×2 (21:54→22:37)
[2016-11-05] MEDS ORDERED: Phytonadione (Adult) 10 mg/1 mL Inj PO SCH (23:30)
[2016-11-06] VITALS (13 sets, daily range): BP systolic 100–144; BP diastolic 35–62; PULSE 57–68; RESP 14–19; O2SAT 92–99
[2016-11-06] MEDS: cefTRIAXone Inj 1,000 MG in Dextrose 5% Minibag Plus 50 ML IV SCH (00:14)
[2016-11-06] MEDS: Chlorhexidine 0.12% 473 mL Oral Solution MUC_MEMBRM SCH ×2 (00:14→07:32)
[2016-11-06 02:54] LABS: BASOPHILS % (AUTO) 0.2 % (0-3)
[2016-11-06 03:01] LABS: EOSINOPHILS % (AUTO) 0.6 % (0-5); MONOCYTES % (AUTO) 2.7 % (4-12); Mean Corpuscular Hemoglobin 31.1 pg (27.0-35.0); Mean Corpuscular Volume 85.5 fL (81-100); NEUTROPHILS % (AUTO) 88.3 % (40-74); Platelet Count 155 bil/L (150-400)
[2016-11-06] MEDS: Vasopressin Inj 20 UNIT in 0.9% Sodium Chloride 100 ML IV SCH ×2 (03:50→15:46)
--- NOTE | 2016-11-06 04:09 | ABG ---
DateTimeAnalyzed 04:07:00 -_ pH ____7.111 - 7.350 7.450 pCO2 ___50.8__ -mmHg 35.0 45.0 pO2 ___53.4__ -mmHg 69.0 116 HCO3- ___15.5__ -mmol/L 22.0 26.0 ABE __-13.5__ -mmol/L -2.0 2.0 tHb ___10.8__ -g/dL O2Hb ___81.9__ -% COHb ____1.2__ -% MetHb ____2.2__ -% sO2 ___84.8__ -% 25.0 FIO2 ___21.0__ -% PEEP ____8.0__ -cmH2O Vt __400.0__ -L Drawn By AF - Date/Time Notified____ 04:09:00 -_ Spontaneous_RR ___14.0__ -b/min Oxygen Device 1 VENTILATOR - Notified By AF - Notified Whom William Hernandez RN - B 759 -mmHg tO2 ___12.5__ -Vol% Lj test N/A -
[2016-11-06 04:32] LABS: Magnesium 2.1 mg/dL (1.6-2.6); Phosphorus 7.4 mg/dL (2.5-4.9)
[2016-11-06] MEDS: Pantoprazole Inj 80 MG in 0.9% Sodium Chloride 80 ML IV SCH ×3 (06:34→15:45)
--- NOTE | 2016-11-06 06:42 | NUR ---
Urine/Labs/Consult Pt produced 10ml of urine this shift which is 6ml more than the previous shift. Pt's AM labs resulted and K level repeated due to hemolyzed specimen. having a great deal of stress r/t 's condition. Spiritual Care consult placed. Levophed titrated up slightly during shift to maintain MAP. RN Spoke with poison control regarding follow up of glucagon IVP given as a reversal for possible beta marialuisa overdose. Poison control has informed staff that they are closing case on patient at this time.
--- NOTE | 2016-11-06 08:17 | DRSVH ---
PROCEDURE: X-RAY CHEST ONE VIEW, PORTABLE ([id number]) INDICATIONS: Sepsis TECHNIQUE: One view of the chest was acquired. COMPARISON: [facility], CR, XR CHEST 1VW (PORTABLE), 11/05/2016, 4:28. FINDINGS: Surgical changes and devices: ETT tube tip projects 5 cm above the elba. Unchanged position a righ t IJ CVL. Post median sternotomy. Lungs and pleura: Pulmonary edema and bibasilar air space opacities have increased, left greater than right. No pneumothorax. Small left pleural effusion. Mediastinum: Mediastinal contours appear normal. Heart size is enlarged. Bones and chest wall: No suspicious bony lesions. Overlying soft tissues appear unremarkable. IMPRESSION: 1. Support lines and tubes unchanged from prior exam. 2. Pulmonary edema and/or bibasilar pneumonia Dictated by: Glynn Martines A Interpreted: Mary Villanueva MD on 11/06/2016 at 8:15 Transcribed by: AURELIANO on 11/06/2016 at 8:17 Approved by: Mary Villanueva M.D. on 11/06/2016 at 16:45
[2016-11-06] MEDS ORDERED: Azithromycin Inj 500 MG in Dextrose 5% w/Vial Mate 250 ML IV SCH (08:30)
--- NOTE | 2016-11-06 08:35 | ABG ---
DateTimeAnalyzed 08:31:00 -_ pH ____7.149 - 7.350 7.450 pCO2 ___42.7__ -mmHg 35.0 45.0 pO2 ___77.3__ -mmHg 69.0 116 HCO3- ___14.2__ -mmol/L 22.0 26.0 ABE __-13.7__ -mmol/L -2.0 2.0 tHb ___10.6__ -g/dL O2Hb ___91.7__ -% COHb ____1.1__ -% MetHb ____1.7__ -% sO2 ___94.3__ -% 25.0 FIO2 ___40.0__ -% PRVC 400 - PEEP ____8.0__ -cmH2O Set_RR ___16.0__ -b/min Vt __442.0__ -L Drawn By jmw - Date/Time Notified____ 08:34:00 -_ Spontaneous_RR ___16.0__ -b/min Oxygen Device 1 VENTILATOR - Notified By jmw - Notified Whom DR GIFFFORD - B 759 -mmHg tO2 ___13.7__ -Vol% Lj test N/A -
[2016-11-06] MEDS: Linezolid Inj 600 MG in IV Premix 1 EACH IV SCH (08:40)
[2016-11-06] MEDS: 0.9% Sodium Chloride 1,000 ML IV SCH ×2 (08:40→15:47)
[2016-11-06] MEDS: Insulin LISPRO 300 Unit/3 mL Inj SUBQ SCH ×4 (08:45→22:00)
[2016-11-06 10:25] LABS: INR 1.57 ratio
[2016-11-06] MEDS ORDERED: Albumin 25% 25 GM in IV Premix 1 EACH IV ONE (10:25)
--- NOTE | 2016-11-06 10:56 | PCM.PNMED ---
Subjective Date of Service Nov 06, 2016 Subjective Pulmonology Consult: Dr. Sánchez Peterson Attending. Requesting Physician Dr. Oliver. Mr. Marrufo is a 85 year old gentleman medical history of CAD (on Brilinta - antiplatelet therapy), HTN, NIDDM and chronic back pain presented to the ED secondary to generalized weakness 2 days. Per patient's patient had been having a steady decline and activity level and ability to ambulate for the last few days (which she initially attributed to his chronic back pain) and culminated on 11/04/2016 with the inability to stand by himself and shortness of breath with lightheadedness. Leading up to hospital admission patient was reportedly seen by primary care provider diagnosed with pneumonia given an outpatient regimen of antibiotics possibly penicillin per . He had had a productive cough with peralta sputum though no reported fevers or other symptoms. He had also been taking increasing amounts of Tylenol for his chronic back pain approximately 1 g every 4 hours. Overnight, Pt required an increase in nor-epi blood pressure support, received glucagon infusion and intralipton with some improvement in hemodynamic state. Pt made approximately 10cc of urine. Exam Vital Signs Vital Sign - Last Date Time Temp Pulse Resp B/P Pulse Ox O2 Delivery O2 Flow Rate FiO2 11/06/16 08:00 Ventilator 11/06/16 08:00 63 11/06/16 08:00 36.3 16 115/62 99 11/06/16 07:57 40 11/04/16 23:25 6 Intake and Output 11/05/16 11/05/16 11/06/16 Cumulative From/Thru 15:00 23:00 07:00 11/04/16 20:34 - 11/06/16 06:00 Intake Total 2647 ml 3404 ml 2996 ml 88402 ml Output Total 0 ml 105 ml 60 ml 165 ml Balance 2647 ml 3299 ml 2936 ml 07784 ml Intake Oral 0 ml 0 ml 0 ml IV Total 2335 ml 3404 ml 2996 ml 61461 ml Packed Cells 312 ml 1029 ml Output Urine Total 0 ml 5 ml 10 ml 15 ml Gastric Drainage Total 100 ml 50 ml 150 ml # Bowel Movements 2 1 3 Exam General: Patient intubated and sedated. HEENT: Pupils equal, round. Anicteric sclerae, pale conjunctivae. Endotracheal tube in place. Facial edema Neck: Supple with full range of motion. No jugular venous distension. Central line in place right IJ Cardiovascular: Regular Bradycardic rate. No murmurs appreciated Pulmonary: Patient ventilated, good air movement. Inspiratory and expiratory crackles. Abdomen: Soft, distended, not firm. No appreciable fluid wave. Extremities: Pretibial pitting edema. Left arterial line. Left AC line. Right forearm line. Skin: Normal temperature, poor turgor. No rash, ulcers, or subcutaneous nodules appreciated. Neurological: Pt sedated IVs and Medications Medications Reviewed: Medications were reviewed in detail Lab and Diagnostics Result Diagram: 11/06/16 0245 11/06/16 0543 X-Rays, CTs and MRIs . CT BRAIN WITHOUT CONTRAST IMPRESSION: Chronic left frontal and right parietal encephalomalacia in addition to age- related involutional changes. No acute intracranial process. CT CHEST, ABDOMEN AND PELVIS WITHOUT CONTRAST IMPRESSION: 1. Low-density bilateral pleural effusions and basilar consolidation suspicious for pneumonia. 2. Small amount of intra-abdominal ascites. No pneumoperitoneum. 3. Normal appendix. 4. Extensive aortic atherosclerosis and coronary artery calcification. Findings suspicious for high-grade infrarenal abdominal aortic stenosis. However, lack of intravenous contrast limits evaluation. 5. Severe centrilobular emphysema. X-RAY ABDOMEN, ONE VIEW IMPRESSION: No acute intra-abdominal findings. X-RAY CHEST ONE VIEW, PORTABLE 11/04/2016 IMPRESSION: Mild increased retrocardiac left basilar opacities possibly low- grade aspiration/atelectasis versus developing pneumonia. Please correlate clinically. Background chronic interstitial disease as before X-RAY CHEST ONE VIEW, PORTABLE 11/05/2016 IMPRESSION: 1. Tubes and lines as above. 2. Left basilar radiopacity. Differential considerations include aspiration, atelectasis, and infection. X-RAY CHEST ONE VIEW, PORTABLE 11/06/2016 IMPRESSION: 1. Support lines and tubes unchanged from prior exam. 2. Pulmonary edema and/or bibasilar pneumonia 12-lead ECG ECG Interpretation: Sinus rhythm rate 60 Prolonged GA interval Time: 21:40 Interpreted by: ED physician Normal ECG Interpretation: No acute ischemic changes Cardiac Echo Impressions Echocardiogram Report Interpretation Summary This is a limited echocardiogram ordered. The left ventricular cavity is small. There is mild-moderate concentric left ventricular hypertrophy. The ejection fraction is estimated to be 60-65%. Assessment of diastolic parameters indicates normal left ventricular diastolic function and normal filling pressures. The right ventricle grossly appears normal in size with probable normal systolic function. There is moderate to severe mitral annular calcification. There is a porcine aortic valve. The aortic valve is not well visualized. No other echocardiographic abnormalities seen. Assessment & Plan 85 year old male with PMH of CAD, HTN, CAD (on Brilinta anticoagulation) admitted for septic shock with possible underlying pneumonia, GI Bleed, BINTA. 1. Hypovolemic shock. Present on admission. Ongoing. Pt requiring blood pressure support. Last BP 120/42 (68), Diastolic BP remains low reinforcing the likelihood of septic shock. - Possible sources include pneumonia. Other etiologies of his shock include blood loss from as of yet unidentified source. - H&H on Admit 7.3/22.9, trended up to 11.6/31.9. Pt has received 3 units PRBC' s. - Pt positive 10+ liters of fluid. Currently on 150ml/hr. NS - EGD showed no evidence of Bleed - CT ABD showed small amount of intra-abdominal ascites and small amount of hepatosplenic free fluid - Nor epi 0.17 mcg/kg/min has begun to achieve pressure control. - Vasopressin 0.03 units/min - Possibility of hemodynamic state resulting from B-Nasra toxicity: Calcium gluconate, glucagon and intralipin given - Albumin 25gm given secondary to level of 1.2 from 2.2 - Vigileo in place 2. Pneumonia, present on admission. Ongoing. - CT suspicious for pneumonia - WBC 12.1 on admit, peak of 13.1. 9.5 on 11/06/2016 - Procalcitonin 0.39 on admit to 2.13 11/06/2016 - ETT initially placed for airway protection. - Currently receiving Ceftriaxone, Linezolid, Doxycycline - PCR positive for Coronovirus - Appropriate cultures and serologies pending - ID following 3. GI Bleed. Present on admission. Ongoing. - Report of melena in stool. Stool guaiac positive. - Held home meds Brilinta and ASA - EGD showed no evidence of bleed, possibility of a Dieulafoy's lesion - H&H has trended up after receiving 3 units of PRBC's - Lactic acid elevated on admit 3.9, repeat values 0.6,0.8, 0.7 - Protonix drip - Additional PRBC on hold - GI following 4. Renal failure (acute on chronic), present on admission. Ongoing. Pt denies and NSAID use aside from ASA. Pt has Hx of elevated Cr ~ 1.7 last hospital admit 05/2016 - Cr on admit 7.45, 6.12,6.92, 7.04, 6.73 - Pt initially made a minimal amount of urine total 160mL. - CT showed decompressed bladder and no hydronephrosis or nephrolithiasis - Mcmillan cath in place - NS 150/hr - Nephrology following, plan to dialyze today 11/06/2016 and will advise on electrolyte and Bicarb replacement. Their expertise is greatly appreciated. 5. Transaminitis, present on admission. Ongoing - Pt reported was taking 1g Tylenol every 4 hours for the last few days - Acetaminophen 27.1 on 11/04/2016 at 21:00hrs - AST 234, 228, 231 . ALT 183, 192, 199 - CT showed subcentimeter gallstones or sludge within the gallbladder fundus and cystic duct. The gallbladder wall is not well characterized - Total Bili 0.3, 0.2 - Acetylcysteine/Dextrose course complete 6. Hypercarbic Respiratory failure, not present on admission. - Intubated and Sedated with propofol - ABG's have shown slight improvement in Ph 7.052 on admit -7.21,7.161, 7.149. pCO2 43 from 59. cHCO3 14.2 from 15.9 (Pt remains in renal failure) - Increase RR to 18-19 - Pain control with Fentanyl 7. NIDDM. - Currently on sliding scale - Consider drip if Glucose levels maintain elevation 9. Emphysema. Present on admission - CT showed severe centrilobular emphysema. - Bronchodilators 9. Elevated troponin, acute, present on admission. In the setting of Renal failure. - History of CAD, on dual antiplatelet therapy - Initial troponin 0.134, repeat 0.143 - Telemetry has shown some PVC's - Echo EF 60%-65%. LVH. - ECG from ED read as prolonged GA interval and incomplete RBBB. Artifact in leads I,II,III GI Prophylaxis: Proton Pump Inhibitor VTE Prophylaxis: SCDs VTE Mechanical Devices: Intermittant Pneumatic CD Resuscitation Status: CPR: Attempt Resuscitation Attending Statement The patient was seen and examined together with Dr. Monroe on 11/06/2016 and I agree with the history, exam and plan as outlined in the note above. BRANDEN MONROE DO Nov 06, 2016 10:56 Sánchez Peterson MD Nov 08, 2016 11:15 Acute blood loss Anemia : Due to upper GI bleed ? Hb 7.2 on admission . EGD shows no source of bleed. Discussed with GI Patient is s/p 3 units of PRBC transfusion . H/H now 06/26. Brilinta and Aspirin discontinued . Continue Protonix drip. GI following Septic Shock : Source likely pneumonia Patient did not respond to fluid resuscitation on presentation and was put on pressor support (norepinephrine) Cultures in process . Chest X-ray show pneumonia On Ceftriaxone . Zithromax added for atypical coverage . Nasal swab PCR positive for coronavirus Continue NS @ 150 ml/hr . Critical care consulted . Case discussed Community Acquired Pneumonia : As above Acute Renal Failure : No known history of kidney failure Likely secondary to sepsis, Hypotension and dehydration Renal US. Troponin trending down . Avoid nephrotoxic agents. Monitor renal function and electrolytes closely Nephrology consulted . Elevated troponin, acute, present on admission Due to demand ischemia, septic shock and renal failure . No report of angina Last Echo EF 60%, Repeat ECHO pending . Monitor troponin trend Acute Respiratory failure, Due to sepsis, pneumonia and acute toxic encephalopathy Intubated and on mechanical ventilation. Management per pulmonary Type II DM Sliding scale insulin . ICU protocol/ NGT feeding per nutrition Hypocalcemia : This is likely due to blood transfusions and massive fluid resuscitation . Ca was 8.2 on admission. Albumin 2.3 Corrected calcium is 7.6 . Still low . Calcium kl IV x 1 gr one dose . Obtain ionized calcium Chronic medical issues h/o CVA OA Type II diabetes Hypertension Critically ill patient . Plan of care as above and discussed with his at bedside Prognosis guarded cbc, bmp in am GI Prophylaxis: Proton Pump Inhibitor VTE Prophylaxis: SCDs VTE Mechanical Devices: Intermittant Pneumatic CD Resuscitation Status: CPR: Attempt Resuscitation BRANDEN MONROE DO Nov 06, 2016 10:56
--- NOTE | 2016-11-06 11:21 | PCM.PNMED ---
Subjective Date of Service Nov 06, 2016 Subjective GASTROENTEROLOGY PROGRESS NOTE Today: Patient remains intubated and sedated. No family present at bedside at time of examination. Staff reports no evidence further bleeding at this time. Exam Vital Signs Vital Sign - Last Date Time Temp Pulse Resp B/P Pulse Ox O2 Delivery O2 Flow Rate FiO2 11/06/16 07:57 66 120/42 95 40 11/06/16 03:25 14 Mechanical Ventilator 11/05/16 23:24 35.7 11/04/16 23:25 6 Intake and Output 11/05/16 11/05/16 11/06/16 Cumulative From/Thru 15:00 23:00 07:00 11/04/16 20:34 - 11/06/16 06:00 Intake Total 2647 ml 3404 ml 2996 ml 98917 ml Output Total 0 ml 105 ml 60 ml 165 ml Balance 2647 ml 3299 ml 2936 ml 54628 ml Intake Oral 0 ml 0 ml 0 ml IV Total 2335 ml 3404 ml 2996 ml 05400 ml Packed Cells 312 ml 1029 ml Output Urine Total 0 ml 5 ml 10 ml 15 ml Gastric Drainage Total 100 ml 50 ml 150 ml # Bowel Movements 2 1 3 Exam General: Intubated and sedated; no acute distress HENT: Atraumatic; mucus membranes dry; sclera anicteric; ETT in place Neck: RIJ in place, with bandages clean/dry/intact Cardiac: RRR Respiratory: Faint coarse sounds at bilateral bases Abdomen: Soft, nondistended, nontender Extremities: Multiple punctate ulcerations bilateral distal lower extremities; BLUE multiple sites ecchymosis Neuro: Unable to obtain secondary to intubation and sedation Lab and Diagnostics Result Diagram: 11/06/16 0245 11/06/16 0543 X-Rays, CTs and MRIs CT BRAIN WITHOUT CONTRAST IMPRESSION: Chronic left frontal and right parietal encephalomalacia in addition to age- related involutional changes. No acute intracranial process. Dictated by: Jason Nelson M.D. on 11/04/2016 at 21:14 Approved by: Jsaon Nelson M.D. on 11/04/2016 at 21:16 Chest X-Ray IMPRESSION: Mild increased retrocardiac left basilar opacities possibly low- grade aspiration/atelectasis versus developing pneumonia. Please correlate clinically. Background chronic interstitial disease as before Dictated by: Jason Nelson M.D. on 11/04/2016 at 21:44 Approved by: Jason Nelson M.D. on 11/04/2016 at 21:45 12-lead ECG ECG Interpretation: Sinus rhythm rate 60 Prolonged WA interval Time: 21:40 Interpreted by: ED physician Normal ECG Interpretation: No acute ischemic changes Assessment & Plan GASTROENTEROLOGY PROGRESS NOTE Mr. Marrufo is an 85 year old gentleman with history of Brilinta + 162mg ASA daily use for carotid atherosclerotic disease s/p CVA with CEA, that presented to [facility] from home with AMS, hypotension, and acute anemia. GI was consulted to evaluate melena, anemia, and hypotension. Initial HH on admission was 7.3/22.9. EGD 11/05: Old blood noted within 2nd and 3rd portions of duodenum, superficial erosion of antrum; no identified etiology of bleed Assessments - Acute anemia s/p 3U pRBC secondary to suspected UGIB - Melena secondary to above Plan - Monitor HH, transfuse prn - Continue Protonix 40mg IV daily - Hold Brilinta and ASA at this time - Consider tagged RBC vs CTA to determine occult bleeding source if bleeding continues Thank you for this consult, we will happily follow along at this time. Please do not hesitate to contact us with any questions or concerns. Total time: 45 minutes GI Prophylaxis: Proton Pump Inhibitor VTE Prophylaxis: SCDs VTE Mechanical Devices: Intermittant Pneumatic CD Resuscitation Status: CPR: Attempt Resuscitation Attending Statement pt seen and examined agree with resident physician note per nursing no further bleeding had 2 large dark, not melenic stool per nursing H/H remains stable Follow stool output follow cultures continue supportive care change PPI to IV daily from PPI Marbella Smalls DO Nov 06, 2016 09:22 Vanessa Avelar MD Nov 06, 2016 23:26
[2016-11-06] MEDS: Chlorhexidine 0.12% 15 mL Oral Solution MUC_MEMBRM SCH ×3 (13:07→19:55)
--- NOTE | 2016-11-06 13:22 | NUR ---
NUTRITION ASSESSMENT Assess: 85 YO M admitted to CCU for hypovolemic shock, GI bleed, PNA, and renal failure. Pt currently intubated. PMHX: Anticoagulated on Brilinta, chronic back pain, type 2 DM, cardiomyopathy, coronary disease, HTN, PVD, paralyzed vocal cord, GERD. DIET: NPO. LABS: Na 126, K+ 5.6, BUN 97, Cr 6.73, Glu 277, Ca 6.5, Phos 7.4, AST 231, ALT 199, Alb 1.2. MEDICATIONS: Reviewed. Fentanyl, Insulin, Pressor, Propofol. GI: 1 BM 11/06. SKIN: No issues noted. WEIGHT: 87.3 kg, BMI 30.1 kg/m2, IBW 67.3 kg. ESTIMATED NEEDS: VENT/BMI/RENAL FAILURE Calories: 1818-7668 kcal/day (20-22 kcal/kg BW) Protein: 81-101 g/day (1.2-1.5 g/kg IBW) NUTRITION DIAGNOSIS: 1) Inadequate oral intake related to decreased ability to consume sufficient energy as evidenced by NPO/Vent status. INTERVENTION: 1) Will await plan of care decisions. If unable to extubate pt in the next 24 hours consider nutrition support. 2) If nutrition support indicated, recommend enteral nutrition of Nepro starting at 10 ml/hr. Once tolerance established, advance 10 ml q 6 hr to goal rate of 45 ml/hr. At goal TF would provide 1782 kcal, 80 g protein; meeting 100% calorie, 99% protein needs. Adjust rate based on Propofol. 3) Adjust estimated needs if pt starts dialysis. MONITOR/EVALUATE: NPO/Vent status, GI, nutrition support, labs, nutrition status. Follow per high nutrition risk guidelines.
--- NOTE | 2016-11-06 13:37 | ABG ---
DateTimeAnalyzed 13:34:00 -_ pH ____7.170 - 7.350 7.450 pCO2 ___37.8__ -mmHg 35.0 45.0 pO2 ___74.8__ -mmHg 69.0 116 HCO3- ___13.2__ -mmol/L 22.0 26.0 ABE __-14.2__ -mmol/L -2.0 2.0 tHb ___10.6__ -g/dL O2Hb ___92.2__ -% COHb ____1.1__ -% MetHb ____1.5__ -% sO2 ___94.7__ -% 25.0 FIO2 ___40.0__ -% PRVC 400 - PEEP ____8.0__ -cmH2O Set_RR ___19.0__ -b/min Vt __442.0__ -L Drawn By jmw - Date/Time Notified____ 13:37:00 -_ Spontaneous_RR ___19.0__ -b/min Oxygen Device 1 VENTILATOR - Notified By jmw - Notified Whom DR JACKELINE - B 759 -mmHg tO2 ___13.8__ -Vol% Lj test N/A -
--- NOTE | 2016-11-06 13:39 | PCM.PNNEPH ---
Subjective Date of Service Nov 06, 2016 Subjective Patient was seen in the intensive care unit and the chart reviewed. Patient's serum creatinine is about the same as it has been throughout his hospital stay today level .73. He has had a bit over 100 mL. Urine out in the last 24 hours. He remains ventilatory dependent and his pressors are from recently been weaned this morning. In light of his acidemia, acute tubular necrosis, and I will go ahead and proceed with placing a femoral dialysis catheter and dialysis today and probably for the next few days. Patient had a long discussion with the patient's and son passed his current situation with the patient, the risks and benefits of placement of intravenous dialysis catheter and of dialysis. They understand the risks and proceed with this. Exam Vital Signs Vital Sign - Last Date Time Temp Pulse Resp B/P Pulse Ox O2 Delivery O2 Flow Rate FiO2 11/06/16 12:14 65 120/41 92 40 11/06/16 08:00 Ventilator 11/06/16 08:00 36.3 16 11/04/16 23:25 6 Intake and Output 11/05/16 11/05/16 11/06/16 Cumulative From/Thru 15:00 23:00 07:00 11/04/16 20:34 - 11/06/16 06:00 Intake Total 2647 ml 3404 ml 2996 ml 20193 ml Output Total 0 ml 105 ml 60 ml 165 ml Balance 2647 ml 3299 ml 2936 ml 42006 ml Intake Oral 0 ml 0 ml 0 ml IV Total 2335 ml 3404 ml 2996 ml 55976 ml Packed Cells 312 ml 1029 ml Output Urine Total 0 ml 5 ml 10 ml 15 ml Gastric Drainage Total 100 ml 50 ml 150 ml # Bowel Movements 2 1 3 Exam Patient remains sedated and on a ventilator and minimally responsive. His sclera. There is evidence of mild periorbital edema. Neck is supple without adenopathy or thyromegaly. Lungs shows a few bibasilar rales. Heart was regular and rhythmical. Distended with diminished bowel sounds. There is evidence of tympany to percussion and was pulsatile to palpation. Extremities showed some mild generalized edema. Lab and Diagnostics Result Diagram: 11/06/16 0245 11/06/16 0543 X-Rays, CTs and MRIs . CT BRAIN WITHOUT CONTRAST IMPRESSION: Chronic left frontal and right parietal encephalomalacia in addition to age- related involutional changes. No acute intracranial process. CT CHEST, ABDOMEN AND PELVIS WITHOUT CONTRAST IMPRESSION: 1. Low-density bilateral pleural effusions and basilar consolidation suspicious for pneumonia. 2. Small amount of intra-abdominal ascites. No pneumoperitoneum. 3. Normal appendix. 4. Extensive aortic atherosclerosis and coronary artery calcification. Findings suspicious for high-grade infrarenal abdominal aortic stenosis. However, lack of intravenous contrast limits evaluation. 5. Severe centrilobular emphysema. X-RAY ABDOMEN, ONE VIEW IMPRESSION: No acute intra-abdominal findings. X-RAY CHEST ONE VIEW, PORTABLE 11/04/2016 IMPRESSION: Mild increased retrocardiac left basilar opacities possibly low- grade aspiration/atelectasis versus developing pneumonia. Please correlate clinically. Background chronic interstitial disease as before X-RAY CHEST ONE VIEW, PORTABLE 11/05/2016 IMPRESSION: 1. Tubes and lines as above. 2. Left basilar radiopacity. Differential considerations include aspiration, atelectasis, and infection. X-RAY CHEST ONE VIEW, PORTABLE 11/06/2016 IMPRESSION: 1. Support lines and tubes unchanged from prior exam. 2. Pulmonary edema and/or bibasilar pneumonia 12-lead ECG ECG Interpretation: Sinus rhythm rate 60 Prolonged MS interval Time: 21:40 Interpreted by: ED physician Normal ECG Interpretation: No acute ischemic changes Cardiac Echo Impressions Echocardiogram Report Interpretation Summary This is a limited echocardiogram ordered. The left ventricular cavity is small. There is mild-moderate concentric left ventricular hypertrophy. The ejection fraction is estimated to be 60-65%. Assessment of diastolic parameters indicates normal left ventricular diastolic function and normal filling pressures. The right ventricle grossly appears normal in size with probable normal systolic function. There is moderate to severe mitral annular calcification. There is a porcine aortic valve. The aortic valve is not well visualized. No other echocardiographic abnormalities seen. Plan Impression Impression #1 acute tubular necrosis secondary to acetaminophen and severe hypotension. #2 drug-induced acute kidney injury #3 hypotension #4 metabolic acidosis in part secondary to accumulation of pyroglutamic acid Acetaminophen. Recommendations #1 as noted above I have had a long discussion with the patient' s and son in obtaining informed consent to place a dialysis catheter and do dialysis today. I will run him on a revaclear dialyzer for 3 hours, 2 potassium bath 40 bicarbonate, temperature 35.5 Celsius and a loading dose of 1000 units of heparin. Will attempt to take between 2 and 3 L off. At the treatment will give him 25 g of albumin at the start and every hour following this 2 with a total dosage of 3 most likely he will be dialyzed tomorrow. Plan The patient will continue hyperbaric treatments. Will return () for treatment #() Shawn Capps DO Nov 06, 2016 13:38
--- NOTE | 2016-11-06 13:45 | PCM.PROC ---
Procedure Note Date of Service: Nov 06, 2016 Pre Procedure Diagnosis: Acute kidney injury/acute tubular necrosis to metabolic acidosis Post Procedure Diagnosis: Same Procedure: Insertion of right femoral venous dialysis catheter Provider and Voltmeter Operator: Shawn Capps D.O. and Erick Monroe D.O. Indication for Procedure: Acute kidney injury Procedure Details: After informed consent was obtained from the patient's . The right femoral vasculature was visualized by Doppler ultrasound both femoral vein and artery were visualized. The area was then prepped and draped in a sterile manner. Once again using the ultrasound probe to isolate the vessels this was withdrawn and the area of the right femoral vein was infiltrated with approximately 5 mL of 1% lidocaine. Once anesthesia was obtained the femoral vein was entered with the six sigma black trainer needle was noted by flash of dark red blood. The needle was withdrawn and the needle was attached to a 10 mL syringe and flushed with saline. Following the track of the Route medial femoral vein once again was reintroduced noted by a flash of dark red blood. Annalisa Price in the vein the syringe was disconnected and a flexible guidewire was then passed down through the "needle into the femoral vein. Given the guidewire and placed a "needle was withdrawn and a small incision was made into the skin. Using a series of graduated dilators the femoral vein track was established. A 24 cm Mahurkar catheter which had been previously discharged with normal saline was then passed down over the guidewire into the femoral vein once again is noted by the return of venous blood from the of the catheter. The guidewire was removed via the home and both ports flushed with saline, the clamps were applied and were attached to the upper lobes. The catheter was sutured into place with 2 interrupted sutures using 0 silk. The area was cleaned and dressed. The patient tolerated the procedure well and there were no complications noted. Post Procedure Plan: Acute dialysis treatment Shawn Capps DO Nov 06, 2016 13:45
--- NOTE | 2016-11-06 14:27 | NUR ---
Wound Care [facility] Patient is established patient of outpatient wound clinic, seeing Dr. Nicole. Per and wound center chart, wounds to left foot healing slowly. Patient using CCU ANSLEY bed with heels floated on 2 hour turning schedule. Left lateral 5th toe with diabetic ulcer measuring 0.4cm W x 0.4cm L with unknown depth due to 100% thick brown eschar. Cleaned with NS, applied wound gel and covered with bandaid. Patient with multiple other areas of scabbed diabetic ulcers to bilateral feet and legs, including medial right great toe and right heel. Right medial great toe measures 1cm W x 1cm L with 100% brown eschar/scab. Right heel measures 0.3 x 0.3 with 100% brown scab/eschar. Recommend keeping right foot ulcers dry with scabs intact. Recommend continued ANSLEY bed, q2 hours turning, and floating heels. Clean left lateral foot wound with NS and reapply wound gel and bandaid q48 hours and PRN soiling. Please reconsult wound care services if further needs arise.
--- NOTE | 2016-11-06 14:37 | PCM.PNMED ---
Subjective Date of Service Nov 06, 2016 Subjective Follow up for sepsis, shock, renal and respiratory failure . Patient remained intubated and sedated. Hydrodynamics somewhat better on pressors . Urine out put 10 cc overnight . Afebrile . Case discussed during multidisciplinary round Exam Vital Signs Vital Sign - Last Date Time Temp Pulse Resp B/P Pulse Ox O2 Delivery O2 Flow Rate FiO2 11/06/16 12:14 65 120/41 92 40 11/06/16 12:00 Ventilator 11/06/16 12:00 36.6 19 11/04/16 23:25 6 Intake and Output 11/05/16 11/05/16 11/06/16 Cumulative From/Thru 14:59 22:59 06:59 11/04/16 20:34 - 11/06/16 06:00 Intake Total 2647 ml 3404 ml 2996 ml 23068 ml Output Total 0 ml 105 ml 60 ml 165 ml Balance 2647 ml 3299 ml 2936 ml 29685 ml Intake Oral 0 ml 0 ml 0 ml IV Total 2335 ml 3404 ml 2996 ml 11305 ml Packed Cells 312 ml 1029 ml Output Urine Total 0 ml 5 ml 10 ml 15 ml Gastric Drainage Total 100 ml 50 ml 150 ml # Bowel Movements 2 1 3 Exam General: Patient intubated and sedated. Ill appearing HEENT: KELSEY, Sclerae is anicteric Neck: Supple . No jugular venous distension. Central right IJ line in place Mouth : orally intubated Cardiovascular: S1S2, Regular , HR 60-65. No murmurs, no gallop Chest : normal excursion. On mechanical ventilation Lungs: good air movement b/l .Bilateral inspiratory and expiratory crackles. Abdomen: Soft, distended, non tender. Bowel sounds normal all quadrants Extremities: 2+ pedal edema. Left arterial line. Left AC line. Right forearm line. Skin: Normal temperature, poor turgor. No rash, No ulcers Neurological: Pt sedated IVs and Medications Medications Reviewed: Medications were reviewed in detail Lab and Diagnostics Result Diagram: 11/06/16 0245 11/06/16 0543 Microbiology culture in process X-Rays, CTs and MRIs . CT BRAIN WITHOUT CONTRAST IMPRESSION: Chronic left frontal and right parietal encephalomalacia in addition to age- related involutional changes. No acute intracranial process. CT CHEST, ABDOMEN AND PELVIS WITHOUT CONTRAST IMPRESSION: 1. Low-density bilateral pleural effusions and basilar consolidation suspicious for pneumonia. 2. Small amount of intra-abdominal ascites. No pneumoperitoneum. 3. Normal appendix. 4. Extensive aortic atherosclerosis and coronary artery calcification. Findings suspicious for high-grade infrarenal abdominal aortic stenosis. However, lack of intravenous contrast limits evaluation. 5. Severe centrilobular emphysema. X-RAY ABDOMEN, ONE VIEW IMPRESSION: No acute intra-abdominal findings. X-RAY CHEST ONE VIEW, PORTABLE 11/04/2016 IMPRESSION: Mild increased retrocardiac left basilar opacities possibly low- grade aspiration/atelectasis versus developing pneumonia. Please correlate clinically. Background chronic interstitial disease as before X-RAY CHEST ONE VIEW, PORTABLE 11/05/2016 IMPRESSION: 1. Tubes and lines as above. 2. Left basilar radiopacity. Differential considerations include aspiration, atelectasis, and infection. X-RAY CHEST ONE VIEW, PORTABLE 11/06/2016 IMPRESSION: 1. Support lines and tubes unchanged from prior exam. 2. Pulmonary edema and/or bibasilar pneumonia 12-lead ECG ECG Interpretation: Sinus rhythm rate 60 Prolonged NV interval Time: 21:40 Interpreted by: ED physician Normal ECG Interpretation: No acute ischemic changes Cardiac Echo Impressions Echocardiogram Report Interpretation Summary This is a limited echocardiogram ordered. The left ventricular cavity is small. There is mild-moderate concentric left ventricular hypertrophy. The ejection fraction is estimated to be 60-65%. Assessment of diastolic parameters indicates normal left ventricular diastolic function and normal filling pressures. The right ventricle grossly appears normal in size with probable normal systolic function. There is moderate to severe mitral annular calcification. There is a porcine aortic valve. The aortic valve is not well visualized. No other echocardiographic abnormalities seen. Assessment & Plan Patient is an 85 y.o. 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 Patient presented to the ED 11/04/16 due to his noticing onset of generalized weakness today. Patient was hypovolemic and hypotensive on presentation with acute GI bleed, new onset BINTA, altered mental status, weakness, initial labs showed leukocytes with left shift, transaminitis. Acute blood loss Anemia : Due to upper GI bleed ? Stable H/H after 3 units of PRBC transfusion ?. This is likely chronic Anemia , or acute on chronic Anemia EGD on 11/06/2015 : no source of bleed found Brilinta and Aspirin discontinued . Continue Protonix drip. Discussed with GI Septic Shock : Possible source is pneumonia On Ceftriaxone, Doxycycline and Zivox Response to noreinephrine has been inadequate , which let the possibility of BB still lingering systemically given renal failure. Patient received glucagon and calcium goluconate . Hydrodynamic is somewhat better today Cultures in process . Nasal swab PCR positive for coronavirus ID consulted. Case discussed during multidisciplinary round Community Acquired Pneumonia : As above Acute Renal Failure : No known history of kidney failure . Probably due to tylenol , ATN from hypotension , sepsis . Patient a positive fluid balance of + 10 liters Patient is basically anuric from ologuric in thr past 24 hours . Dialysis is being scheduled for today Elevated troponin, acute, present on admission Due to demand ischemia, septic shock and renal failure . No report of angina Last Echo EF 60%, Repeat ECHO on 11/05/2016 overall unchanged Acute Respiratory failure, Due to sepsis, pneumonia and acute toxic encephalopathy Intubated and on mechanical ventilation. Management per pulmonary Elevated Liver enzymes Likely shock liver from hypotension . Tylenol overdose less likely but in the scope of possibility Mucomyst given. Liver enzymes trending down Type II DM Sliding scale insulin . ICU protocol/ NGT feeding per nutrition Hypocalcemia : This is likely due to blood transfusions and massive fluid resuscitation . Obtain ionized calcium . Replace calcium PRN . Albumin 1.2 today Chronic medical issues h/o CVA OA Type II diabetes Hypertension Critically ill patient . Plan of care as above and discussed with his at bedside Prognosis guarded 85 year old male with PMH of CAD, HTN, CAD (on Brilinta anticoagulation) admitted for septic shock with possible underlying pneumonia, GI Bleed, BINTA. 1. Hypovolemic shock. Present on admission. Ongoing. Pt requiring blood pressure support. Last BP 120/42 (68), Diastolic BP remains low reinforcing the likelihood of septic shock. - Possible sources include pneumonia. Other etiologies of his shock include blood loss from as of yet unidentified source. - H&H on Admit 7.3/22.9, trended up to 11.6/31.9. Pt has received 3 units PRBC' s. - Pt positive 10+ liters of fluid. Currently on 150ml/hr. NS - EGD showed no evidence of Bleed - CT ABD showed small amount of intra-abdominal ascites and small amount of hepatosplenic free fluid - Nor epi 0.17 mcg/kg/min has begun to achieve pressure control. - Vasopressin 0.03 units/min - Possibility of hemodynamic state resulting from B-Nasra toxicity: Calcium gluconate, glucagon and intralipin given - Albumin 25gm given secondary to level of 1.2 from 2.2 - Vigileo in place 2. Pneumonia, present on admission. Ongoing. - CT suspicious for pneumonia - WBC 12.1 on admit, peak of 13.1. 9.5 on 11/06/2016 - Procalcitonin 0.39 on admit to 2.13 11/06/2016 - ETT initially placed for airway protection. - Currently receiving Ceftriaxone, Linezolid, Doxycycline - PCR positive for Coronovirus - Appropriate cultures and serologies pending - ID following 3. GI Bleed. Present on admission. Ongoing. - Report of melena in stool. Stool guaiac positive. - Held home meds Brilinta and ASA - EGD showed no evidence of bleed, possibility of a Dieulafoy's lesion - H&H has trended up after receiving 3 units of PRBC's - Lactic acid elevated on admit 3.9, repeat values 0.6,0.8, 0.7 - Protonix drip - Additional PRBC on hold - GI following 4. Renal failure (acute on chronic), present on admission. Ongoing. Pt denies and NSAID use aside from ASA. Pt has Hx of elevated Cr ~ 1.7 last hospital admit 05/2016 - Cr on admit 7.45, 6.12,6.92, 7.04, 6.73 - Pt initially made a minimal amount of urine total 160mL. - CT showed decompressed bladder and no hydronephrosis or nephrolithiasis - Mcmillan cath in place - NS 150/hr - Nephrology following, plan to dialyze today 11/06/2016 and will advise on electrolyte and Bicarb replacement. Their expertise is greatly appreciated. 5. Transaminitis, present on admission. Ongoing - Pt reported was taking 1g Tylenol every 4 hours for the last few days - Acetaminophen 27.1 on 11/04/2016 at 21:00hrs - AST 234, 228, 231 . ALT 183, 192, 199 - CT showed subcentimeter gallstones or sludge within the gallbladder fundus and cystic duct. The gallbladder wall is not well characterized - Total Bili 0.3, 0.2 - Acetylcysteine/Dextrose course complete 6. Hypercarbic Respiratory failure, not present on admission. - Intubated and Sedated with propofol - ABG's have shown slight improvement in Ph 7.052 on admit -7.21,7.161, 7.149. pCO2 43 from 59. cHCO3 14.2 from 15.9 (Pt remains in renal failure) - Increase RR to 18-19 - Pain control with Fentanyl 7. NIDDM. - Currently on sliding scale - Consider drip if Glucose levels maintain elevation 9. Emphysema. Present on admission - CT showed severe centrilobular emphysema. - Bronchodilators 9. Elevated troponin, acute, present on admission. In the setting of Renal failure. - History of CAD, on dual antiplatelet therapy - Initial troponin 0.134, repeat 0.143 - Telemetry has shown some PVC's - Echo EF 60%-65%. LVH. - ECG from ED read as prolonged NV interval and incomplete RBBB. Artifact in leads I,II,III Acute blood loss Anemia : Due to upper GI bleed ? Hb 7.2 on admission . EGD shows no source of bleed. Discussed with GI Patient is s/p 3 units of PRBC transfusion . H/H now 06/26. Brilinta and Aspirin discontinued . Continue Protonix drip. GI following Septic Shock : Source likely pneumonia Patient did not respond to fluid resuscitation on presentation and was put on pressor support (norepinephrine) Cultures in process . Chest X-ray show pneumonia On Ceftriaxone . Zithromax added for atypical coverage . Nasal swab PCR positive for coronavirus Continue NS @ 150 ml/hr . Critical care consulted . Case discussed Community Acquired Pneumonia : As above Acute Renal Failure : No known history of kidney failure Likely secondary to sepsis, Hypotension and dehydration Renal US. Troponin trending down . Avoid nephrotoxic agents. Monitor renal function and electrolytes closely Nephrology consulted . Elevated troponin, acute, present on admission Due to demand ischemia, septic shock and renal failure . No report of angina Last Echo EF 60%, Repeat ECHO pending . Monitor troponin trend Acute Respiratory failure, Due to sepsis, pneumonia and acute toxic encephalopathy Intubated and on mechanical ventilation. Management per pulmonary Type II DM Sliding scale insulin . ICU protocol/ NGT feeding per nutrition Hypocalcemia : This is likely due to blood transfusions and massive fluid resuscitation . Ca was 8.2 on admission. Albumin 2.3 Corrected calcium is 7.6 . Still low . Calcium kl IV x 1 gr one dose . Obtain ionized calcium Chronic medical issues h/o CVA OA Type II diabetes Hypertension Critically ill patient . Plan of care as above and discussed with his at bedside Prognosis guarded cbc, bmp in am GI Prophylaxis: Proton Pump Inhibitor VTE Prophylaxis: SCDs VTE Mechanical Devices: Intermittant Pneumatic CD Resuscitation Status: CPR: Attempt Resuscitation Time spent 35 minutes Galo Oliver MD Nov 06, 2016 14:37
[2016-11-06] MEDS: Norepineph 8,000 mCg/250 mL NS 8,000 MCG in IV Premix 1 EACH IV SCH (15:08)
[2016-11-06] MEDS ORDERED: Albumin 25% 100 ML IV ONE ×2 (16:40→17:05)
--- NOTE | 2016-11-06 17:40 | NUR ---
P: Hemodynamics, Resp, Neuro, Skin, Social I,E: Pt remains on vasopressin and levophed. Sys BP is improved and is in the 140's to 150's currently, however, diastolic remains low in the 40's. UOP remains scant, with approx 4cc in the cavanaugh. Dialysis cath was placed today in the right groin and pt is undergoing dialysis at this time and is tolerating it well. Pt remains on the vent and changes were made by pulmonology today, with peep increasing to 8 and RR up to 19. Pt has thick estrada pink secretions, small amounts suctioned infrequently. Pt remains sedated with fentanyl and propofol. He appears comfortable and has a FELDT of 0. Pt has slightly reddened bottom which and I applied calmoseptine to this area for protection, it looks improved this evening from this a.m. Wound care came to assess and see pt today and applied a small dressing to one of his diabetic foot ulcers. His feet have multiple small wounds in various stages of healing. Pt's family have been in the room and are supportive of one another. Pt's stays with him in the room and she has been updated several times today by the MD's.
--- NOTE | 2016-11-06 18:02 | CONS ---
[address] [address] CONSULTATION REPORT PATIENT: YVONNE CANTOR : 1930 MR#: [id number] ADMIT: 11/04/2016 JOB ID: [id number] DATE OF SERVICE: 11/06/2016 REASON FOR CONSULTATION: Refractory shock, renal failure, hepatic injury in a patient with underlying COPD. I thank Dr. Sánchez Peterson for this consult. 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 He was in his usual state of compensated health until a couple of weeks ago when he developed what sounds like a progressive respiratory tract infection for which he saw his private practitioner twice. He was given what sounds like amoxicillin because of a history of cough with peralta sputum and subsequently apparently the dose was raised of the amoxicillin; we do not have all of those records. Despite this seemingly appropriate antibiotic intervention, the patient worsened and in the one or two days just prior to admission, he developed progressive weakness. He also noticed worsening of his chronic low back pain and for that reason took quite extraordinary doses of Tylenol, perhaps as high as 6 g per day in the days prior to his admission. He eventually became very weak and developed changes in mental status with some possible slurring of his speech which led to his arrival in the ED late on November 04 with primary complaints related to the weakness and change in mental status. At that point, an extensive evaluation ensued and shortly after admission he was found to have a progressive drop in hemoglobin and hematocrit as compared to his baseline as well as melena. Attempts were made to transfuse the patient and fluid resuscitate him. He was also noted to have renal failure as well as a significant hepatic injury and very rapidly after admission developed severe hypotension with respiratory failure requiring intubation and very aggressive vasopressor support with high doses of norepinephrine as well as supplemental vasopressin. Over the last day or so, the patient has been very critically ill in the CCU, requiring high-dose vasopressor agents with basically no urine output and has, of course, been ventilator-dependent. Because of his shock as well as his low SVR as measured by the Pepe machine, it was felt that he may be in septic shock and, for that reason, he was broadly covered with ceftriaxone, doxycycline and linezolid. ID consultation is now requested regarding additional evaluation and antibiotic recommendations. The patient's is available to provide history and she tells us a lot of what was just in that 1st paragraph. She states he did not have overt fevers, chills or rigors before his admission. She states that he had just been getting weaker, especially in the days right before admission. She does note that he had a productive cough which did not seem a lot better with antibiotics and that she herself had a similar cough which did get better without any specific intervention. She denies any knowledge of any recent diarrhea, nausea, vomiting or genitourinary symptoms on the part of the patient. It was reported that he did have fecal incontinence one time just prior to admission, but otherwise not much else in the way of GI complaints. She states the patient gets around the house fairly well with a cane at baseline and they do not travel really much beyond the confines of the [facility]. She states that they have been working on a carb friendly diet and his diabetes has been under much better control in recent months with hemoglobin A1c's in fact dropping under 6. PAST MEDICAL HISTORY: 1. COPD. 2. Organic heart disease; a. Porcine aortic valve replacement in 2007. b. Coronary artery disease. c. Note in the chart regarding cardiomyopathy of unknown cause but probably ischemic. 3. Diabetes mellitus. 4. Hypertension. 5. CVA, May 2016. SOCIAL HISTORY: The patient quit smoking in the 80s. He is a nonalcohol consumer. 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 He and has have not traveled anywhere recently. FAMILY HISTORY: As per the , is negative for tuberculosis in 1st degree relatives. REVIEW OF SYSTEMS: Not available as the patient is intubated and sedated. PHYSICAL EXAMINATION: Reveals a critically ill, elderly gentleman lying supine in the ICU. He has been hypothermic basically to some degree since admission, currently 36.3. He has never had a fever. Pulse currently in the 60s, blood pressure 115/62, on high-dose norepinephrine as well as vasopressin. He is saturating 99% on 15 and 8 of PEEP at this moment. Examination of the head reveals no trauma. The eyes have rather muddy yellowish sclerae bilaterally. Pupils are mid range. Nose normal. Oroendotracheal tube, orogastric tube in good position. The neck is without thyromegaly or adenopathy. His lines are in good position and free of apparent infection. Lungs: Coarse breath sounds, more at the bases than in the upper lung ruiz. Cardiac tones: Regular rate and rhythm with a soft systolic murmur heard best in the aortic region and right upper chest. Abdomen slightly distended but completely soft without organomegaly or any focal mass. Suprapubic area is benign. He has a Mcmillan catheter. His penis and scrotum appear normal. Does not have any notable inguinal adenopathy nor cervical adenopathy. Legs are notable for about a 1 cm in diameter dry ulcer over the medial right great toe which appears as if it could be a vascular ischemic lesion. There are also a couple of smaller lesions over the feet bilaterally. His feet are extremely cool to touch and without any peripheral pulses below the knees. The upper legs appear relatively uninvolved. There is no evidence for synovitis or joint effusion. Neurologic exam cannot be done, and there is no skin rash or exanthem aside from those possible vascular lesions. LABORATORIES: Include a white count 9500. It was as high as 13,000 yesterday. The diff is fairly unimpressive with 88% segs but no bands. Platelets normal 155 today. His creatinine is 6.73. It came in at 7.5, so really has not changed. just bounced around a little bit since that time. Lactic acid was elevated to 3.9 when he came in, now 0.7. LFTs notable for a bilirubin of 0.2, AST 231, ALT 199, BNP is 8100. Albumin 1.2. When he came in that was 2.9, surprisingly. Procalcitonin was 0.4 twice during the first few hours after admission. It has now jumped to 2.13. Serologic studies include negative urine Legionella antigen, negative urine pneumococcal antigen. Tylenol level was very high at 27, I should mention. Also, the patient's blood cultures are negative. MRSA screen is now final and negative. Sputum Gram stain and culture completely unimpressive, just a few polys and a little mixed hilary. Multiplex positive for ness virus which is probably of little significance. We reviewed his chest x-rays with Dr. Peterson. He has bilateral infiltrates which may represent CHF or more significant pulmonary disease. A CT scan done yesterday morning showed low-density pleural effusions with bibasilar consolidation which could represent pneumonia or atelectasis. Small amount of ascites was noted, and there is extensive coronary artery as well as aortic calcification. IMPRESSION: This is a difficult case of a gentleman with underlying cardiac and pulmonary disease who suffered a recent stroke and has fairly well controlled diabetes. Over a couple of weeks, he has had a decline which seemed to have started with what was likely a ness virus respiratory infection based on our current PCRs. He received amoxicillin without benefit and then got abruptly worsen in the one or two days prior to admission and presented here with melena, refractory shock, hepatic injury which may be related to Tylenol and renal failure. The exact nature of the shock remains unclear. Arguing against infection is the fact that he has been afebrile, has a relatively normal white count and has no positive cultures of note. Arguing in favor of septic shock, however, is extremely low SVR, refractory hypotension, and a rising procalcitonin. It is of interest that his systolic/diastolic differential pressure is extremely wide which often goes along with sepsis. An echo has already been done and it shows that his aortic valve was not dramatically dysfunctional which could be another cause for his low diastolic pressure. Because septic shock is certainly possible in this circumstance, I think it is imperative that we broadly cover this gentleman while we sort out what is going on. At this point, we already have back a negative MRSA screen and I see no particular reason to be concerned about MRSA so we can stop his linezolid, but I would agree with continuing the broad-spectrum doxy and ceftriaxone aimed at possible pneumonia. We should also keep in mind the possibility of C. diff and should he develop any increasing stools, I think it would be important to send a stool for C. diff. RECOMMENDATIONS: 1. Will continue with ceftriaxone and doxy. 2. Will stop linezolid. 3. We await the many pending cultures. 4. I would send a blood for Strongyloides as the patient did reside in [place] for two years and is therefore at low risk to have continual low-level Strongyloides infection. 5. This case discussed extensively with Nursing as well as the entire ICU team during rounds. CHARLETTE
--- NOTE | 2016-11-06 19:30 | NUR ---
Dialysis note: S/P catheter placement. 3 hrs tx. 3000 ml net UF. Right femoral catheter, dsg dry and intact. Hepatitis serologies drawn. Pls see DTR for VS details, cont on pressors. Qb 300. Heparin prime given. On vent @ 40% FiO2 with sat in the 90's. Albumin 25 Gm IV x 3 given as ordered. Stable treatment. Catheter flushed, heparin dwelled and secured. Report given to Katherine Eaton RN.
[2016-11-06] MEDS: Doxycycline Inj 100 MG in Dextrose 5% Minibag Plus 100 ML IV SCH (19:55)
[2016-11-06 21:14] LABS: Mean Corpuscular Hemoglobin 28.1 pg (27.0-35.0); Mean Corpuscular Volume 81.1 fL (81-100); Platelet Count 99 bil/L (150-400)
[2016-11-06 21:40] LABS: Magnesium 1.9 mg/dL (1.6-2.6)
[2016-11-06 22:02] LABS: BASOPHILS % (AUTO) 0 % (0-3); EOSINOPHILS % (AUTO) 0 % (0-5); MONOCYTES % (AUTO) 1 % (4-12); NEUTROPHILS % (AUTO) 88 % (40-74)
[2016-11-07] VITALS (13 sets, daily range): BP systolic 105–165; BP diastolic 33–57; PULSE 47–55; RESP 16–19; O2SAT 92–96
[2016-11-07] MEDS: Chlorhexidine 0.12% 15 mL Oral Solution MUC_MEMBRM SCH ×6 (00:26→20:42)
[2016-11-07] MEDS: cefTRIAXone Inj 1,000 MG in Dextrose 5% Minibag Plus 50 ML IV SCH (00:26)
[2016-11-07] MEDS: Vasopressin Inj 20 UNIT in 0.9% Sodium Chloride 100 ML IV SCH ×2 (04:05→14:06)
--- NOTE | 2016-11-07 04:39 | ABG ---
DateTimeAnalyzed 04:34:00 -_ pH ____7.357 - 7.350 7.450 pCO2 ___34.2__ -mmHg 35.0 45.0 pO2 ___73.5__ -mmHg 69.0 116 HCO3- ___18.7__ -mmol/L 22.0 26.0 ABE ___-5.6__ -mmol/L -2.0 2.0 tHb ____9.1__ -g/dL O2Hb ___93.5__ -% COHb ____1.2__ -% MetHb ____1.1__ -% sO2 ___95.7__ -% 25.0 FIO2 ___40.0__ -% PRVC 19 - PEEP ____8.0__ -cmH2O Set_RR ___19.0__ -b/min Vt __400.0__ -L Drawn By MM - Date/Time Notified____ 04:38:00 -_ Spontaneous_RR ___19.0__ -b/min Oxygen Device 1 VENTILATOR - Notified By MM - Notified Whom DR JACKELINE - B 752 -mmHg tO2 ___12.0__ -Vol% Lj test N/A -
--- NOTE | 2016-11-07 05:59 | NUR ---
P) Cardiac/renal/respiratory Pt.'s lungs with very decreased breath sounds and faint crackles in L base, suctioning estrada to brown phlegm from ET tube frequently. Cardiac rhythm sinus to sinus yury, generally in the 50's this shift with a 1st degree AVB and initially multiple long runs of ventricular rhythm, triplets and 5 beat runs as well, stabilizing this am to an occasional PVC. No urine output this shift. I) Critical labs called to hospitalist, no order changes at this time. Meds per 's orders, multiple education visits with pt.'s who is at bedside. Turning q2h and floating heels. E) Resting quietly with eyes closed, titrated propofol down until pt. began fighting vent, does not open his eyes spontaneously or follow any commands. KELSEY but does not track.
[2016-11-07 06:22] LABS: BASOPHILS % (AUTO) 0.1 % (0-3); EOSINOPHILS % (AUTO) 1.3 % (0-5); MONOCYTES % (AUTO) 9.3 % (4-12); Mean Corpuscular Hemoglobin 27.9 pg (27.0-35.0); Mean Corpuscular Volume 81.5 fL (81-100); NEUTROPHILS % (AUTO) 75.2 % (40-74); Platelet Count 90 bil/L (150-400)
[2016-11-07 06:43] LABS: Magnesium 1.8 mg/dL (1.6-2.6)
[2016-11-07] MEDS: Insulin LISPRO 300 Unit/3 mL Inj SUBQ SCH ×4 (08:00→20:41)
--- NOTE | 2016-11-07 08:25 | DRSVH ---
PROCEDURE: X-RAY CHEST ONE VIEW, PORTABLE ([id number]) INDICATIONS: Intubated TECHNIQUE: One view of the chest was acquired. COMPARISON: [facility], CR, XR CHEST 1VW (PORTABLE), 11/06/2016, 5:21. FINDINGS: Surgical changes and devices: Stable position of ETT, nasogastric tube and right IJ CVL. Lungs and pleura: Diffuse, widespread bilateral pulmonary interstitial and air space opacities are p resent which has increased from prior examination. Small pleural effusions. No pneumothorax. Mediastinum: Mediastinal contours appear normal. Heart size is enlarged. Bones and chest wall: No suspicious bony lesions. Overlying soft tissues appear unremarkable. IMPRESSION: Worsening pulmonary edema and/or diffuse bilateral pneumonia. Dictated by: Glynn ERVIN Interpreted: Mary Villanueva MD on 11/07/2016 at 8:24 Transcribed by: AURELIANO on 11/07/2016 at 8:25 Approved by: Mary Villanueva M.D. on 11/07/2016 at 16:33
[2016-11-07] MEDS: Pantoprazole 4 mg/mL 10 mL Inj IVPUSH SCH (08:49)
--- NOTE | 2016-11-07 08:52 | PROG NOTE ---
[address] [address] PROGRESS NOTE PATIENT: YVONNE CANTOR : 1930 MR#: [id number] ADMIT: 11/04/2016 JOB ID: [id number] DATE: 11/07/2016 REASON FOR FOLLOW UP: Septic shock, renal failure and hepatic injury in a patient with underlying COPD, now ventilator dependent. INTERVAL HISTORY: Recall this is a very complicated gentleman with underlying COPD, organic heart disease, bioprosthetic aortic valve, and a recent respiratory tract infection, who ended up in the ICU with refractory shock, a dropping hematocrit and a mixed clinical picture that included the shock of uncertain etiology, renal failure, severe hepatic injury and the need for extremely high doses of vasopressor agents. Yesterday, we felt most likely that his shock was on the basis of sepsis and he was treated for community-acquired pathogens with ceftriaxone and doxycycline. We also instituted a broader workup for infection including multiple serologies and cultures. Overnight, the patient has improved somewhat. He is currently on less vasopressor agents, though he remains dependent on both norepinephrine and vasopressin, but albeit at lower doses of norepinephrine. His oxygenation status is stable and he is currently on just 40% inspired oxygen on the ventilator. His renal function continues most impaired and a temporary dialysis catheter was placed and was dialyzed yesterday. This case was discussed with the nurses at the bedside, and the case reviewed during ICU rounds. PHYSICAL EXAMINATION: Reveals an intubated, sedated gentleman, who is not able to supply any history obviously. He has been afebrile and, in fact, hypothermic at times throughout his hospital stay. Currently, 36.4, pulse 50, respiratory rate per the ventilator, blood pressure 140/46, saturating 95% on 40 of FiO2 and 5 of PEEP. The patient's eyes are without change. His oral endotracheal tube and orogastric tube in good position. Right central line and right neck central line is present, as is a left radial A-line, and an extra peripheral IV is present in the left forearm, and I have asked the nurses to remove that. Neck without notable abnormality. Lungs were auscultated while the patient was being rolled on his side, and there are a few crackles at the bases but no notable focal abnormalities present from auscultation. Cardiac tones regular rate and rhythm. Somewhat bradycardic. The patient's abdomen is distended but without obvious mass or tenderness. Scrotum somewhat distended but without any scrotal cellulitis. Mcmillan catheter is present. The right groin line is present as was noted for dialysis. The feet, which were quite cold yesterday, are cool today, and therefore, considerably improved, though still without much in the way of pulses in the feet. LABORATORIES: Include white count which has dropped to 7900, with a pronounced left shift and 7% bands yesterday has also resolved. Creatinine today is 5.69, but he has already been dialyzed once. AST has dropped from 140-120. The same is true of the ALT. Albumin 3.1. Procalcitonin continues to climb from 0.4 twice on admission, is now up to 9.36 and, even know he is in renal failure, that degree of elevation of procalcitonin is strongly suggestive of sepsis. Hepatitis serologies as well as Strongyloides are pending. Blood cultures negative. Multiplex PCR of nasal swab positive for Coronavirus. A sputum culture from the endotracheal tube has a few polys and mixed hilary on gram stain, but is growing an oxidase positive gram-negative wilfrid felt to be Pseudomonas. Urine antigen for pneumococcus negative. Urine Legionella negative. IMAGING: Yesterday shows the bibasilar infiltrates. IMPRESSION: Overnight, the patient has improved overnight with reduced doses of vasopressor agents and some increased clinical stability overall, though he remains in renal failure and remains ventilator dependent. His climbing procalcitonin, I think, confirms our suspicions of yesterday that his shock is largely septic. The source of septic shock remains unclear, but in view of his bilateral infiltrates and recent Coronavirus infection, it is likely that this is a pneumonia. If so, the finding of Pseudomonas in the sputum is somewhat confusing. Pseudomonas pneumonia would be rare in someone who is not immunosuppressed by virtue of out of control diabetes, cancer, human immunodeficiency virus, prolonged hospital stay, or high-dose steroids, and none of these seem to apply to closely to this patient. The other reason I am skeptical of Pseudomonas as the cause of pneumonia, this is not the predominant organism seen on the gram stain of his sputum, but nonetheless, I think it is reasonable to extend his coverage at least in the short term while he is so critically ill, to cover Pseudomonas. In the meantime, will continue coverage for so-called atypical bacterial pathogens. RECOMMENDATIONS: 1. Will continue with doxycycline. 2. Will switch the patient's ceftriaxone to cefepime in renally adjusted doses. 3. We await the many pending serologies and cultures. 4. This case was discussed with the nursing team as well as the ICU team on rounds.
--- NOTE | 2016-11-07 10:09 | PCM.PNMED ---
Subjective Date of Service Nov 07, 2016 Subjective Pulmonology Consult: Dr. Sánchez Peterson Attending. Requesting Physician Dr. Oliver. Mr. Marrufo is a 85 year old gentleman medical history of CAD (on Brilinta - antiplatelet therapy), HTN, NIDDM and chronic back pain presented to the ED secondary to generalized weakness 2 days. Per patient's patient had been having a steady decline and activity level and ability to ambulate for the last few days (which she initially attributed to his chronic back pain) and culminated on 11/04/2016 with the inability to stand by himself and shortness of breath with lightheadedness. Leading up to hospital admission patient was reportedly seen by primary care provider diagnosed with pneumonia given an outpatient regimen of antibiotics possibly penicillin per . He had had a productive cough with peralta sputum though no reported fevers or other symptoms. He had also been taking increasing amounts of Tylenol for his chronic back pain approximately 1 g every 4 hours. Overnight: Patient responded very well to dialysis. Patient's blood pressure improved, pressor requirement decreased. Heart rate became bradycardic again in the low 50s-40s. Exam Vital Signs Vital Sign - Last Date Time Temp Pulse Resp B/P Pulse Ox O2 Delivery O2 Flow Rate FiO2 11/07/16 08:35 50 122/40 94 40 11/07/16 04:00 36.4 19 Mechanical Ventilator 11/04/16 23:25 6 Intake and Output 11/06/16 11/06/16 11/07/16 Cumulative From/Thru 15:00 23:00 07:00 11/04/16 20:34 - 11/07/16 06:43 Intake Total 2495 ml 1173 ml 82816 ml Output Total 3055 ml 200 ml 3420 ml Balance -560 ml 973 ml 38470 ml Intake Oral 0 ml IV Total 2495 ml 1173 ml 74680 ml Packed Cells 1029 ml Output Urine Total 5 ml 0 ml 20 ml Gastric Drainage Total 50 ml 200 ml 400 ml Ultrafiltrate 3000 ml 3000 ml # Bowel Movements 0 3 Exam General: Patient intubated and sedated. HEENT: Pupils equal, round. Anicteric sclerae, pale conjunctivae. Endotracheal tube in place. Facial edema improved Neck: Supple with full range of motion. No jugular venous distension. Central line in place right IJ Cardiovascular: Regular Bradycardic rate. No murmurs appreciated Pulmonary: Patient ventilated, good air movement. Inspiratory and expiratory crackles. Abdomen: Soft, distended, not firm. No appreciable fluid wave. Extremities: Pretibial pitting edema, improved from yesterday. Left arterial line. Left AC line. Right forearm line. Skin: Normal temperature, poor turgor. No rash, ulcers, or subcutaneous nodules appreciated. Neurological: Pt sedated IVs and Medications Medications Reviewed: Medications were reviewed in detail Lab and Diagnostics Result Diagram: 11/07/1643411/07/16 043 Microbiology culture in process X-Rays, CTs and MRIs . CT BRAIN WITHOUT CONTRAST IMPRESSION: Chronic left frontal and right parietal encephalomalacia in addition to age- related involutional changes. No acute intracranial process. CT CHEST, ABDOMEN AND PELVIS WITHOUT CONTRAST IMPRESSION: 1. Low-density bilateral pleural effusions and basilar consolidation suspicious for pneumonia. 2. Small amount of intra-abdominal ascites. No pneumoperitoneum. 3. Normal appendix. 4. Extensive aortic atherosclerosis and coronary artery calcification. Findings suspicious for high-grade infrarenal abdominal aortic stenosis. However, lack of intravenous contrast limits evaluation. 5. Severe centrilobular emphysema. X-RAY ABDOMEN, ONE VIEW IMPRESSION: No acute intra-abdominal findings. X-RAY CHEST ONE VIEW, PORTABLE 11/04/2016 IMPRESSION: Mild increased retrocardiac left basilar opacities possibly low- grade aspiration/atelectasis versus developing pneumonia. Please correlate clinically. Background chronic interstitial disease as before X-RAY CHEST ONE VIEW, PORTABLE 11/05/2016 IMPRESSION: 1. Tubes and lines as above. 2. Left basilar radiopacity. Differential considerations include aspiration, atelectasis, and infection. X-RAY CHEST ONE VIEW, PORTABLE 11/06/2016 IMPRESSION: 1. Support lines and tubes unchanged from prior exam. 2. Pulmonary edema and/or bibasilar pneumonia X-RAY CHEST ONE VIEW, PORTABLE 11/07/2016 IMPRESSION: Worsening pulmonary edema and/or diffuse bilateral pneumonia. 12-lead ECG ECG Interpretation: Sinus rhythm rate 60 Prolonged OR interval Time: 21:40 Interpreted by: ED physician Normal ECG Interpretation: No acute ischemic changes Cardiac Echo Impressions Echocardiogram Report Interpretation Summary This is a limited echocardiogram ordered. The left ventricular cavity is small. There is mild-moderate concentric left ventricular hypertrophy. The ejection fraction is estimated to be 60-65%. Assessment of diastolic parameters indicates normal left ventricular diastolic function and normal filling pressures. The right ventricle grossly appears normal in size with probable normal systolic function. There is moderate to severe mitral annular calcification. There is a porcine aortic valve. The aortic valve is not well visualized. No other echocardiographic abnormalities seen. Assessment & Plan 85 year old male with PMH of CAD, HTN, CAD (on Brilinta anticoagulation) admitted for septic shock with possible underlying pneumonia, GI Bleed, BINTA. 1. Hypovolemic shock. Present on admission. Ongoing. Pt requiring blood pressure support. Diastolic BP remains low reinforcing the likelihood of septic shock. Possible sources include pneumonia. Other etiologies of his shock include blood loss from as of yet unidentified source. EGD showed no evidence of Bleed. CT ABD showed small amount of intra-abdominal ascites and small amount of hepatosplenic free fluid. Possibility of hemodynamic state resulting from B-Nasra toxicity: Calcium gluconate, glucagon and intralipin given with some improvement. - H&H on Admit 7.3/22.9, trended up to 11.6/31.9. Pt has received 3 units PRBC' s. H&H remains stable. - Pt positive 12+ liters of fluid. Currently on 40 ml/hr NS - Nor epi 0.03 mcg/kg/min - Vasopressin 0.03 units/min - Vigileo in place 2. Pneumonia, present on admission. Ongoing. CT suspicious for pneumonia. PCR positive for Coronovirus, initial sputum grew Pseudomonas - WBC peak of 13.1, currently < 8. - Procalcitonin sharp rise to 9.36 - ETT initially placed for airway protection. - MRSA negative, Linezolid stopped - Continue Doxycycline - Stop Ceftriaxone, start Cefepime per ID recs - ID following, appreciate their recommendations 3. Renal failure (acute on chronic), present on admission. Ongoing. Pt denies and NSAID use aside from ASA. Pt has Hx of elevated Cr ~ 1.7 last hospital admit 05/2016 - Cr on admit 7.45, 5.69 s/p HD. - Dialysis yesterday, ~ 3 L taken off. Minimal urine output. - CT showed decompressed bladder and no hydronephrosis or nephrolithiasis - Mcmillan cath in place - NS 40/hr - Nephrology following, continue dialysis per their recs. 4. Hypercarbic Respiratory failure, not present on admission. - Intubated and Sedated with propofol - ABG's show improvement. pH 7.35, pCO2 34.2, pO2 73, HCO3 18.7 - Decrease RR to 16 secondary to auto peep. - Duonebs scheduled Q4 5. Emphysema. Present on admission - CT showed severe centrilobular emphysema. - Bronchodilators 6. Transaminitis, present on admission. Ongoing Pt reported was taking up to 6 grams of T[address]ol daily. CT showed subcentimeter gallstones or sludge within the gallbladder fundus and cystic duct. The gallbladder wall is not well characterized - Acetaminophen 27.1 on 11/04/2016 at 21:00hrs - AST/ALT continue to improve 120/122 - Total Bili 0.5 - Acetylcysteine/Dextrose course complete 7. GI Bleed. Present on admission. Ongoing. EGD showed no evidence of bleed, possibility of a Dieulafoy's lesion - Stool guaiac positive. - Held home meds Brilinta and ASA - H&H remains stable, after receiving 3 units of PRBC's - Lactic acid elevated on admit 3.9, repeat values normal, continue to monitor - Protonix drip D/C per GI. Change to BID - GI following 8. NIDDM. - Currently on sliding scale - Consider drip if Glucose levels maintain elevation 9. Elevated troponin, acute, present on admission. In the setting of Renal failure. - History of CAD, on dual antiplatelet therapy - Initial troponin 0.134, repeat 0.143 - Telemetry has shown some PVC's - Echo EF 60%-65%. LVH. - ECG from ED read as prolonged OR interval and incomplete RBBB. Artifact in leads I,II,III - Repeat ECG ordered GI Prophylaxis: Proton Pump Inhibitor VTE Prophylaxis: SCDs VTE Mechanical Devices: Intermittant Pneumatic CD Resuscitation Status: CPR: Attempt Resuscitation Attending Statement The patient was seen and examined together with Dr. Monroe on 11/07/2016 and I agree with the history, exam and plan as outlined in the note above. BRANDEN MONROE DO Nov 07, 2016 10:09 Sánchez Peterson MD Nov 08, 2016 11:24
[2016-11-07] MEDS: Albuterol-Ipratropium 3 mL Inhalation Solution NEB SCH ×2 (10:11→20:26)
--- NOTE | 2016-11-07 10:37 | PCM.PNMED ---
Subjective Date of Service Nov 07, 2016 Subjective GASTROENTEROLOGY PROGRESS NOTE Patient remains intubated and sedated in critical condition. Pressor requirements have decreased, but norepi and vasopressin remain. No acute distress noted. present at bedside. States patient had prolonged and severe coughing episodes prior to admission. No BM noted this am; most recent BM was absent of adam blood. Exam Vital Signs Vital Sign - Last Date Time Temp Pulse Resp B/P Pulse Ox O2 Delivery O2 Flow Rate FiO2 11/07/16 08:35 50 122/40 94 40 11/07/16 04:00 36.4 19 Mechanical Ventilator 11/04/16 23:25 6 Intake and Output 11/06/16 11/06/16 11/07/16 Cumulative From/Thru 14:59 22:59 06:59 11/04/16 20:34 - 11/07/16 06:43 Intake Total 2495 ml 1173 ml 10844 ml Output Total 3055 ml 200 ml 3420 ml Balance -560 ml 973 ml 73017 ml Intake Oral 0 ml IV Total 2495 ml 1173 ml 90033 ml Packed Cells 1029 ml Output Urine Total 5 ml 0 ml 20 ml Gastric Drainage Total 50 ml 200 ml 400 ml Ultrafiltrate 3000 ml 3000 ml # Bowel Movements 0 3 Exam General: Intubated and sedated; no acute distress HENT: Atraumatic; mucus membranes dry; sclera anicteric; ETT in place Neck: RIJ in place, with bandages clean/dry/intact Cardiac: RRR Respiratory: Crackles noted BL bases to midfields; no wheeze Abdomen: Soft, nondistended, nontender Extremities: Multiple punctate ulcerations bilateral distal lower extremities; BLUE multiple sites ecchymosis Neuro: Unable to obtain secondary to intubation and sedation Lab and Diagnostics Result Diagram: 11/07/1643411/07/16434 Microbiology culture in process X-Rays, CTs and MRIs . CT BRAIN WITHOUT CONTRAST IMPRESSION: Chronic left frontal and right parietal encephalomalacia in addition to age- related involutional changes. No acute intracranial process. CT CHEST, ABDOMEN AND PELVIS WITHOUT CONTRAST IMPRESSION: 1. Low-density bilateral pleural effusions and basilar consolidation suspicious for pneumonia. 2. Small amount of intra-abdominal ascites. No pneumoperitoneum. 3. Normal appendix. 4. Extensive aortic atherosclerosis and coronary artery calcification. Findings suspicious for high-grade infrarenal abdominal aortic stenosis. However, lack of intravenous contrast limits evaluation. 5. Severe centrilobular emphysema. X-RAY ABDOMEN, ONE VIEW IMPRESSION: No acute intra-abdominal findings. X-RAY CHEST ONE VIEW, PORTABLE 11/04/2016 IMPRESSION: Mild increased retrocardiac left basilar opacities possibly low- grade aspiration/atelectasis versus developing pneumonia. Please correlate clinically. Background chronic interstitial disease as before X-RAY CHEST ONE VIEW, PORTABLE 11/05/2016 IMPRESSION: 1. Tubes and lines as above. 2. Left basilar radiopacity. Differential considerations include aspiration, atelectasis, and infection. X-RAY CHEST ONE VIEW, PORTABLE 11/06/2016 IMPRESSION: 1. Support lines and tubes unchanged from prior exam. 2. Pulmonary edema and/or bibasilar pneumonia 12-lead ECG ECG Interpretation: Sinus rhythm rate 60 Prolonged MN interval Time: 21:40 Interpreted by: ED physician Normal ECG Interpretation: No acute ischemic changes Cardiac Echo Impressions Echocardiogram Report Interpretation Summary This is a limited echocardiogram ordered. The left ventricular cavity is small. There is mild-moderate concentric left ventricular hypertrophy. The ejection fraction is estimated to be 60-65%. Assessment of diastolic parameters indicates normal left ventricular diastolic function and normal filling pressures. The right ventricle grossly appears normal in size with probable normal systolic function. There is moderate to severe mitral annular calcification. There is a porcine aortic valve. The aortic valve is not well visualized. No other echocardiographic abnormalities seen. Assessment & Plan GASTROENTEROLOGY PROGRESS NOTE Mr. 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 GI was consulted to evaluate melena, anemia, and hypotension. Initial HH on admission was 7.3/22.9. EGD 11/05: Old blood noted within 2nd and 3rd portions of duodenum, superficial erosion of antrum; no identified etiology of bleed Assessments - Acute anemia s/p 3U pRBC secondary to suspected UGIB - Melena secondary to above - Elevated aminotransaminases, likely secondary to shock liver due to sepsis Plan - Monitor HH, transfuse prn - Monitor stool output - Continue Protonix 40mg IV daily - Hold Brilinta and ASA at this time - Consider tagged RBC vs CTA to determine occult bleeding source if bleeding continues - Continue to monitor stool output - Follow cultures - Continue supportive care Thank you for this consult, we will happily follow along at this time. Please do not hesitate to contact us with any questions or concerns. Total time: 45 minutes GI Prophylaxis: Proton Pump Inhibitor VTE Prophylaxis: SCDs VTE Mechanical Devices: Intermittant Pneumatic CD Resuscitation Status: CPR: Attempt Resuscitation Attending Statement Pt seen and examined no further bleeding he had green mucoid liquid stool on my exam today please resident note for details cont to follow H/H PPI daily for stress prophylaxis Marbella Melgar DO Nov 07, 2016 09:47 Vanessa Avelar MD Nov 07, 2016 20:11
--- NOTE | 2016-11-07 13:03 | NUR ---
restraints discontinued Discontinued restraints at this time will monitor pt at sedation is decreased and re apply if needed with new order.
[2016-11-07] MEDS: 0.9% Sodium Chloride 1,000 ML IV SCH (14:07)
[2016-11-07] MEDS ORDERED: Albumin 25% 25 GM in IV Premix 1 EACH IV ONE (14:15)
--- NOTE | 2016-11-07 15:30 | PCM.PNMED ---
Subjective Date of Service Nov 07, 2016 Subjective intubated/sedated - cont on pressors. no acute distress - no active bleeding noted. UOP minimal Exam Vital Signs Vital Sign - Last Date Time Temp Pulse Resp B/P Pulse Ox O2 Delivery O2 Flow Rate FiO2 11/07/16 12:30 Ventilator 11/07/16 12:30 36.3 47 16 107/33 95 40 11/04/16 23:25 6 Intake and Output 11/06/16 11/06/16 11/07/16 Cumulative From/Thru 14:59 22:59 06:59 11/04/16 20:34 - 11/07/16 06:43 Intake Total 2495 ml 1173 ml 99587 ml Output Total 3055 ml 200 ml 3420 ml Balance -560 ml 973 ml 18256 ml Intake Oral 0 ml IV Total 2495 ml 1173 ml 18478 ml Packed Cells 1029 ml Output Urine Total 5 ml 0 ml 20 ml Gastric Drainage Total 50 ml 200 ml 400 ml Ultrafiltrate 3000 ml 3000 ml # Bowel Movements 0 3 Exam General: Patient intubated and sedated. HEENT: KELSEY, Sclerae is anicteric Neck: Supple . No jugular venous distension. Central right IJ line in place Mouth : orally intubated Cardiovascular: S1S2, Regular , HR 60-65. No murmurs, no gallop Chest : normal excursion. On mechanical ventilation Lungs: good air movement b/l .Bilateral inspiratory and expiratory crackles. Abdomen: Soft, distended, non tender. Bowel sounds normal all quadrants Extremities: 2+ pedal edema. Left arterial line. Left AC line. Right forearm line. Skin: Normal temperature, poor turgor. No rash, No ulcers Neurological: Pt sedated IVs and Medications Medications Reviewed: Medications were reviewed in detail Lab and Diagnostics Result Diagram: 11/07/1643411/07/16434 Microbiology culture in process X-Rays, CTs and MRIs . CT BRAIN WITHOUT CONTRAST IMPRESSION: Chronic left frontal and right parietal encephalomalacia in addition to age- related involutional changes. No acute intracranial process. CT CHEST, ABDOMEN AND PELVIS WITHOUT CONTRAST IMPRESSION: 1. Low-density bilateral pleural effusions and basilar consolidation suspicious for pneumonia. 2. Small amount of intra-abdominal ascites. No pneumoperitoneum. 3. Normal appendix. 4. Extensive aortic atherosclerosis and coronary artery calcification. Findings suspicious for high-grade infrarenal abdominal aortic stenosis. However, lack of intravenous contrast limits evaluation. 5. Severe centrilobular emphysema. X-RAY ABDOMEN, ONE VIEW IMPRESSION: No acute intra-abdominal findings. X-RAY CHEST ONE VIEW, PORTABLE 11/04/2016 IMPRESSION: Mild increased retrocardiac left basilar opacities possibly low- grade aspiration/atelectasis versus developing pneumonia. Please correlate clinically. Background chronic interstitial disease as before X-RAY CHEST ONE VIEW, PORTABLE 11/05/2016 IMPRESSION: 1. Tubes and lines as above. 2. Left basilar radiopacity. Differential considerations include aspiration, atelectasis, and infection. X-RAY CHEST ONE VIEW, PORTABLE 11/06/2016 IMPRESSION: 1. Support lines and tubes unchanged from prior exam. 2. Pulmonary edema and/or bibasilar pneumonia 12-lead ECG ECG Interpretation: Sinus rhythm rate 60 Prolonged FL interval Time: 21:40 Interpreted by: ED physician Normal ECG Interpretation: No acute ischemic changes Cardiac Echo Impressions Echocardiogram Report Interpretation Summary This is a limited echocardiogram ordered. The left ventricular cavity is small. There is mild-moderate concentric left ventricular hypertrophy. The ejection fraction is estimated to be 60-65%. Assessment of diastolic parameters indicates normal left ventricular diastolic function and normal filling pressures. The right ventricle grossly appears normal in size with probable normal systolic function. There is moderate to severe mitral annular calcification. There is a porcine aortic valve. The aortic valve is not well visualized. No other echocardiographic abnormalities seen. Assessment & Plan 85 y.o. 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 Patient presented to the ED 11/04/16 due to his noticing onset of generalized weakness today. Patient was hypovolemic and hypotensive on presentation with acute GI bleed, new onset BINTA, altered mental status, weakness , initial labs showed leukocytes with left shift, transaminitis. Acute blood loss Anemia : Due to likely upper GI bleed Stable H/H after 3 units of PRBC transfusion ?. This is likely chronic Anemia , or acute on chronic Anemia EGD on 11/06/2015 : no source of bleed found Brilinta and Aspirin discontinued . Continue Protonix drip. Discussed with GI, appreciate recs - consider further imaging if bleeding Septic Shock : Possible source is pneumonia started on Ceftriaxone, Doxycycline and Zivox--> now cont only on doxy and cefepime per ID 11/07 cont norepinephrine, vasopressin propofol Patient received glucagon and calcium goluconate . Hydrodynamic is somewhat better today Cultures in process . Nasal swab PCR positive for coronavirus ID consulted. Case discussed during multidisciplinary round AG metabolic acidosis likely related to above sepsis Community Acquired Pneumonia : As above Acute Renal Failure : No known history of kidney failure . Probably due to tylenol , ATN from hypotension , sepsis . Patient a positive fluid balance wt 87 -->91kg today Patient is basically anuric from ologuric in thr past 24 hours . cont dialysis per nephro Elevated troponin, acute, present on admission Due to demand ischemia, septic shock and renal failure . No report of angina Last Echo EF 60%, Repeat ECHO on 11/05/2016 overall unchanged Acute Respiratory failure, Due to sepsis, pneumonia and acute toxic encephalopathy Intubated and on mechanical ventilation. Management per pulmonary Elevated Liver enzymes Likely shock liver from hypotension . Tylenol overdose less likely but in the scope of possibility Mucomyst given. Liver enzymes trending down Type II DM Sliding scale insulin . ICU protocol/ NGT feeding per nutrition Hypocalcemia : This is likely due to blood transfusions and massive fluid resuscitation . Obtain ionized calcium . Replace calcium PRN . Albumin 1.2 today Chronic medical issues h/o CVA OA Type II diabetes Hypertension Pain Evaluation: Adequate Pain Control GI Prophylaxis: Proton Pump Inhibitor VTE Prophylaxis: SCDs VTE Mechanical Devices: Intermittant Pneumatic CD Resuscitation Status: CPR: Attempt Resuscitation Time spent 45 minutes spent with eval and jim RichGalo Nov 07, 2016 15:30 GASTROENTEROLOGY PROGRESS NOTE Mr. Marrufo is an 85 year old gentleman with history of Brilinta + 162mg ASA daily use for carotid atherosclerotic disease s/p CVA with CEA, that presented to [facility] from home with AMS, hypotension, and acute anemia. GI was consulted to evaluate melena, anemia, and hypotension. Initial HH on admission was 7.3/22.9. EGD 11/05: Old blood noted within 2nd and 3rd portions of duodenum, superficial erosion of antrum; no identified etiology of bleed Assessments - Acute anemia s/p 3U pRBC secondary to suspected UGIB - Melena secondary to above - Elevated aminotransaminases, likely secondary to shock liver due to sepsis Plan - Monitor HH, transfuse prn - Monitor stool output - Continue Protonix 40mg IV daily - Hold Brilinta and ASA at this time - Consider tagged RBC vs CTA to determine occult bleeding source if bleeding continues - Continue to monitor stool output - Follow cultures - Continue supportive care Thank you for this consult, we will happily follow along at this time. Please do not hesitate to contact us with any questions or concerns. Total time: 45 minutes GI Prophylaxis: Proton Pump Inhibitor VTE Prophylaxis: SCDs VTE Mechanical Devices: Intermittant Pneumatic CD Resuscitation Status: CPR: Attempt Resuscitation Galo Rich DO Nov 07, 2016 15:30
--- NOTE | 2016-11-07 15:50 | NUR ---
NUTRITION FOLLOW-UP Assess: 85 YO M admitted to CCU for hypovolemic shock, GI bleed, PNA, and renal failure. Pt remains intubated. Verbal order and MD consult received to being trophic feedings. Pt received dialysis yesterday and will again today. PMHX: Anticoagulated on Brilinta, chronic back pain, type 2 DM, cardiomyopathy, coronary disease, HTN, PVD, paralyzed vocal cord, GERD. DIET: NPO. LABS: CO2 16, BUN 64, Cr 5.69, Ca 6.9, AST 120, ALT 122, Prealbumin 8 MEDICATIONS: Reviewed. Insulin, Pressor, Propofol @ GI: 1 BM 11/06. SKIN: No issues noted. WEIGHT: 96.8 kg kg, BMI 33.4 kg/m2, IBW 67.3 kg Admit Wt: 87.3 kg ESTIMATED NEEDS: VENT/BMI/DIALYSIS (admit wt) Calories: 5742-9911 kcal/day (22-25 kcal/kg BW) Protein: 81-135 g/day (1.2-2.0 g/kg IBW) NUTRITION DIAGNOSIS: 1) Inadequate oral intake related to decreased ability to consume sufficient energy as evidenced by NPO/Vent status.---PERSISTS INTERVENTION: 1) Recommend initiating trophic feeds w/ Nepros @ 10 ml/hr x24 hrs. 2) Once pt tolerating, advance 10 ml q 6 hrs to goal rate of 50 ml/hr to provide 1980 kcal/d, 89 g/d protein, and 980 ml/d fluid, meeting 100% of est needs. 3) Adjust rate based on Propofol. MONITOR/EVALUATE: NPO/Vent status, GI, nutrition support, labs, nutrition status. Follow per high nutrition risk guidelines.
--- NOTE | 2016-11-07 15:55 | PCM.PNNEPH ---
Subjective Date of Service Nov 07, 2016 Subjective Patient's condition is unchanged. He remains ventilatory dependent and has had 15 and also urine out in the last 24 hours. His blood pressure remained stable however depending upon norepinephrine infusions. Sodium is 137, potassium 3.6, chloride of 97 bicarbonate 16 BUN and creatinine were 64 and 5.69. His albumin is 3.1 and hemoglobin is 8.9. His intra-abdominal pressure with us morning is 17. Exam Vital Signs Vital Sign - Last Date Time Temp Pulse Resp B/P Pulse Ox O2 Delivery O2 Flow Rate FiO2 11/07/16 12:30 Ventilator 11/07/16 12:30 36.3 47 16 107/33 95 40 11/04/16 23:25 6 Intake and Output 11/06/16 11/06/16 11/07/16 Cumulative From/Thru 15:00 23:00 07:00 11/04/16 20:34 - 11/07/16 06:43 Intake Total 2495 ml 1173 ml 07919 ml Output Total 3055 ml 200 ml 3420 ml Balance -560 ml 973 ml 61789 ml Intake Oral 0 ml IV Total 2495 ml 1173 ml 97796 ml Packed Cells 1029 ml Output Urine Total 5 ml 0 ml 20 ml Gastric Drainage Total 50 ml 200 ml 400 ml Ultrafiltrate 3000 ml 3000 ml # Bowel Movements 0 3 Exam Lungs showed scattered rhonchi. Heart was regular; soft systolic murmur. Abdomen is distended with minimal bowel sounds noted. There is fluid noted but abdomen is nontender. Extremities showed some generalized edema with pitting quality. Lab and Diagnostics Result Diagram: 11/07/1643411/07/16434 Microbiology culture in process X-Rays, CTs and MRIs . CT BRAIN WITHOUT CONTRAST IMPRESSION: Chronic left frontal and right parietal encephalomalacia in addition to age- related involutional changes. No acute intracranial process. CT CHEST, ABDOMEN AND PELVIS WITHOUT CONTRAST IMPRESSION: 1. Low-density bilateral pleural effusions and basilar consolidation suspicious for pneumonia. 2. Small amount of intra-abdominal ascites. No pneumoperitoneum. 3. Normal appendix. 4. Extensive aortic atherosclerosis and coronary artery calcification. Findings suspicious for high-grade infrarenal abdominal aortic stenosis. However, lack of intravenous contrast limits evaluation. 5. Severe centrilobular emphysema. X-RAY ABDOMEN, ONE VIEW IMPRESSION: No acute intra-abdominal findings. X-RAY CHEST ONE VIEW, PORTABLE 11/04/2016 IMPRESSION: Mild increased retrocardiac left basilar opacities possibly low- grade aspiration/atelectasis versus developing pneumonia. Please correlate clinically. Background chronic interstitial disease as before X-RAY CHEST ONE VIEW, PORTABLE 11/05/2016 IMPRESSION: 1. Tubes and lines as above. 2. Left basilar radiopacity. Differential considerations include aspiration, atelectasis, and infection. X-RAY CHEST ONE VIEW, PORTABLE 11/06/2016 IMPRESSION: 1. Support lines and tubes unchanged from prior exam. 2. Pulmonary edema and/or bibasilar pneumonia 12-lead ECG ECG Interpretation: Sinus rhythm rate 60 Prolonged NC interval Time: 21:40 Interpreted by: ED physician Normal ECG Interpretation: No acute ischemic changes Cardiac Echo Impressions Echocardiogram Report Interpretation Summary This is a limited echocardiogram ordered. The left ventricular cavity is small. There is mild-moderate concentric left ventricular hypertrophy. The ejection fraction is estimated to be 60-65%. Assessment of diastolic parameters indicates normal left ventricular diastolic function and normal filling pressures. The right ventricle grossly appears normal in size with probable normal systolic function. There is moderate to severe mitral annular calcification. There is a porcine aortic valve. The aortic valve is not well visualized. No other echocardiographic abnormalities seen. Plan Impression Impression #1 acute kidney injury/acute Necrosis #2 drug-induced acute kidney injury secondary to acetaminophen No. 3 metabolic acidosis #4 hypotension Recommendations #1 the patient be dialyzed today for 3-1/2 followers on a 4 potassium bath, 40 bicarbonate, we will try to take 1-3 L of fluid off. Also recommend starting tube feedings on him. Plan The patient will continue hyperbaric treatments. Will return () for treatment #() Shawn Capps DO Nov 07, 2016 15:55
--- NOTE | 2016-11-07 16:35 | NUR ---
Dialysis note Shelley 3 hrs. of HD completed before ended per Dr. Childress request to move to a more emergent tx. 900ml net UF removed. Pt blood pressure readings variable from systolic of 130's down to 60's. Cuff and art. line pressures reading fairly closely to same. UF rate adjusted for BP changes, overall did not tolerate UF well. See DTR for complete vitals. Nurse reports CVP readings of 4. Albumin 25 gm IV X 1 given. Femoral catheter dwelled with 1000/1 U heparin post tx.
--- NOTE | 2016-11-07 17:36 | NUR ---
P: Resp, Hemodynamics, Neuro, Nutrition, Skin, Social I,E: Pt continues on the vent, with small amounts of estrada secretions. Sats in the mid to high 90's. ABG was improved this am. Pt continues to have labile BP's and his HR has been slow today in the 40's to 50's SB, with 1st deg AVB at times, and then sometimes his SC widens and he goes into a wide QRS complex rhythm rates stay the same and then he goes back into a SB. BP was doing well this am and levo was down to 0.03mcg. During dialysis his BP dropped to sys in the 60's and he was given fluid back which he responded very well to. He was given albumin by dialysis nurse and adjustments were made by nephrology. I had also increased his leveophed up to 0.04mcg. Treatment was stopped about 20mins early. Pt is now stable, and sys BP back up to 140's to 150's and I have decreased levophed back to 0.03mcg. We will continue to attempt to decrease pressors as able. UOP was 5cc in the tubing this am from maintenance technician 2nd shift. Today he has had an additional 25cc of UOP. Pt is on fentanyl and propofol for sedation and pain relief. He has a RASS from -3 to +2 and sedation has been adjusted. I attempted to discontinue his restraints but when he woke up he became agitated and he was trying to reach for tubes and lines. Restraints were re-commenced and re-ordered by MD. While awake he did not follow commands but he did appear to track with his eyes. Tube feeds to run at 10cc/hr was ordered today and I am awaiting the kitchen to bring the tube feed to the floor and this will be started. His OT's have been in the 70's today and is aware of this. His skin remains the same, with calmoseptine to his buttocks to protect his skin. He has documented healing wounds on his feet being followed by wound therapy. These areas look clean and healing. Pt's has been here today and has been updated by myself and the Dr's.
--- NOTE | 2016-11-07 17:48 | PCM.PNMED ---
Subjective Date of Service Nov 07, 2016 Subjective Urine output still remains minimal. Intubated and sedated. Does not appear to be in any acute distress. Exam Vital Signs Vital Sign - Last Date Time Temp Pulse Resp B/P Pulse Ox O2 Delivery O2 Flow Rate FiO2 11/07/16 16:30 49 11/07/16 16:30 35.5 16 165/55 96 Mechanical Ventilator 40 11/04/16 23:25 6 Intake and Output 11/06/16 11/06/16 11/07/16 Cumulative From/Thru 15:00 23:00 07:00 11/04/16 20:34 - 11/07/16 06:43 Intake Total 2495 ml 1173 ml 97043 ml Output Total 3055 ml 200 ml 3420 ml Balance -560 ml 973 ml 63232 ml Intake Oral 0 ml IV Total 2495 ml 1173 ml 47804 ml Packed Cells 1029 ml Output Urine Total 5 ml 0 ml 20 ml Gastric Drainage Total 50 ml 200 ml 400 ml Ultrafiltrate 3000 ml 3000 ml # Bowel Movements 0 3 Exam General: Patient intubated and sedated. HEENT: KELSEY, Sclerae is anicteric Neck: Supple . No jugular venous distension. Central right IJ line in place Mouth : orally intubated Cardiovascular: S1S2, Regular , HR 60-65. No murmurs, no gallop Chest : normal excursion. On mechanical ventilation Lungs: good air movement b/l .Bilateral inspiratory and expiratory crackles. Abdomen: Soft, distended, non tender. Bowel sounds normal all quadrants Extremities: 2+ pedal edema. Left arterial line. Left AC line. Right forearm line. Skin: Normal temperature, poor turgor. No rash, No ulcers Neurological: Pt sedated IVs and Medications Medications Reviewed: Medications were reviewed in detail Lab and Diagnostics Result Diagram: 11/07/1643411/07/16434 Microbiology culture in process X-Rays, CTs and MRIs . CT BRAIN WITHOUT CONTRAST IMPRESSION: Chronic left frontal and right parietal encephalomalacia in addition to age- related involutional changes. No acute intracranial process. CT CHEST, ABDOMEN AND PELVIS WITHOUT CONTRAST IMPRESSION: 1. Low-density bilateral pleural effusions and basilar consolidation suspicious for pneumonia. 2. Small amount of intra-abdominal ascites. No pneumoperitoneum. 3. Normal appendix. 4. Extensive aortic atherosclerosis and coronary artery calcification. Findings suspicious for high-grade infrarenal abdominal aortic stenosis. However, lack of intravenous contrast limits evaluation. 5. Severe centrilobular emphysema. X-RAY ABDOMEN, ONE VIEW IMPRESSION: No acute intra-abdominal findings. X-RAY CHEST ONE VIEW, PORTABLE 11/04/2016 IMPRESSION: Mild increased retrocardiac left basilar opacities possibly low- grade aspiration/atelectasis versus developing pneumonia. Please correlate clinically. Background chronic interstitial disease as before X-RAY CHEST ONE VIEW, PORTABLE 11/05/2016 IMPRESSION: 1. Tubes and lines as above. 2. Left basilar radiopacity. Differential considerations include aspiration, atelectasis, and infection. X-RAY CHEST ONE VIEW, PORTABLE 11/06/2016 IMPRESSION: 1. Support lines and tubes unchanged from prior exam. 2. Pulmonary edema and/or bibasilar pneumonia 12-lead ECG ECG Interpretation: Sinus rhythm rate 60 Prolonged [place] interval Time: 21:40 Interpreted by: ED physician Normal ECG Interpretation: No acute ischemic changes Cardiac Echo Impressions Echocardiogram Report Interpretation Summary This is a limited echocardiogram ordered. The left ventricular cavity is small. There is mild-moderate concentric left ventricular hypertrophy. The ejection fraction is estimated to be 60-65%. Assessment of diastolic parameters indicates normal left ventricular diastolic function and normal filling pressures. The right ventricle grossly appears normal in size with probable normal systolic function. There is moderate to severe mitral annular calcification. There is a porcine aortic valve. The aortic valve is not well visualized. No other echocardiographic abnormalities seen. Assessment & Plan 85 year old male with PMH of CAD, HTN, CAD (on Brilinta anticoagulation) admitted for septic shock with possible underlying pneumonia, GI Bleed, BINTA. 1. Hypovolemic shock. Present on admission. Ongoing. - In shock on arrival to ED with septic shock pattern with source likely pulmonary; pt treated for possible beta-marialuisa overdose as well without resolution - Initial Hgb low and pt has received 3 units PRBC's. EGD was negative - Pt positive 12+ liters of fluid and 15Kg up in weight. Currently on 40 ml/hr NS - Nor epi 0.03 mcg/kg/min and Vasopressin 0.03 units/min with goal to wean as tolerated - Vigileo in place showing sepsis pattern with SVRI low and CI high 2. Pneumonia, present on admission. Ongoing. CT suspicious for pneumonia. PCR positive for Coronovirus, initial sputum grew Pseudomonas - initial leukocytosis, elevated procalcitonin, hypothermia, shock, and elevated lactic acid; ETT initially placed for airway protection. - MRSA negative; Pos pseudomonas from trachea (?colonized) and coronavirus - Continue Doxycycline and start Cefepime - Initially started on Ceftriaxone and linezolid but these have been switched for above. - ID following, appreciate their recommendations 3. Acute on chronic renal failure, present on admission. Ongoing. - Denies and NSAID use aside from ASA. - Baseline Cr ~ 1.7 last hospital admit 05/2016 - Cr worsened overnight; continuing dialysis today - CT showed decompressed bladder and no hydronephrosis or nephrolithiasis - Mcmillan cath in place - NS 40/hr - Nephrology following, appreciate their input 4. Hypercapnic respiratory failure, not present on admission. resolved - Intubated and Sedated with propofol - ABG's show resolution of hypercapnia - Pt also on Duonebs Q4 5. Emphysema. Present on admission - CT showed severe centrilobular emphysema. - Bronchodilators 6. Transaminitis, present on admission. resolving - Questionably due to chronic Tylenol overdose vs shock liver - Initial CT ABD showed small amount of intra-abdominal ascites and small amount of hepatosplenic free fluid. - CT showed subcentimeter gallstones or sludge within the gallbladder fundus and cystic duct. - Acetaminophen 27.1 on 11/04/2016 at 21:00hrs - Acetylcysteine/Dextrose course complete 7. GI Bleed. Present on admission. Ongoing. EGD showed no evidence of bleed, possibility of a Dieulafoy's lesion - Held home meds Brilinta and ASA - H&H remains somewhat stable; drop of 2 over the last 48 hours - Protonix BID - GI following 8. NIDDM. - well controlled on sliding scale - Consider drip if Glucose levels maintain elevation 9. Elevated troponin in renal failure, acute, present on admission. - History of CAD, on dual antiplatelet therapy - Trend for resolution; next lab tomorrow Disposition: Patient reformats he overnight with a guarded prognosis GI Prophylaxis: Proton Pump Inhibitor VTE Prophylaxis: SCDs VTE Mechanical Devices: Intermittant Pneumatic CD Resuscitation Status: CPR: Attempt Resuscitation Miguel Ángel Jones DO Nov 07, 2016 17:48
[2016-11-07] MEDS: Doxycycline Inj 100 MG in Dextrose 5% Minibag Plus 100 ML IV SCH (20:42)
[2016-11-07] MEDS: Norepineph 8,000 mCg/250 mL NS 8,000 MCG in IV Premix 1 EACH IV SCH (23:19)
[2016-11-08] VITALS (15 sets, daily range): BP systolic 94–139; BP diastolic 37–56; PULSE 61–73; RESP 16–18; O2SAT 95–100
[2016-11-08] MEDS: Albuterol-Ipratropium 3 mL Inhalation Solution NEB SCH ×7 (00:06→23:42)
[2016-11-08] MEDS: Vasopressin Inj 20 UNIT in 0.9% Sodium Chloride 100 ML IV SCH ×3 (01:27→19:42)
[2016-11-08] MEDS: Chlorhexidine 0.12% 15 mL Oral Solution MUC_MEMBRM SCH ×6 (01:27→19:42)
--- NOTE | 2016-11-08 01:30 | ABG ---
DateTimeAnalyzed 01:26:00 -_ pH ____7.370 - 7.350 7.450 pCO2 ___41.0__ -mmHg 35.0 45.0 pO2 ___61.9__ -mmHg 69.0 116 HCO3- ___23.1__ -mmol/L 22.0 26.0 ABE ___-1.5__ -mmol/L -2.0 2.0 tHb ____8.7__ -g/dL O2Hb ___90.0__ -% COHb ____1.2__ -% MetHb ____1.3__ -% sO2 ___92.3__ -% 25.0 FIO2 ___40.0__ -% PRVC 16 - PEEP ____8.0__ -cmH2O Set_RR ___16.0__ -b/min Vt __400.0__ -L Drawn By MM - Date/Time Notified____ 01:30:00 -_ Spontaneous_RR ___16.0__ -b/min Oxygen Device 1 VENTILATOR - Notified By MM - Notified Whom _Ryan, RN - B 756 -mmHg tO2 ___11.1__ -Vol% Lj test N/A -
--- NOTE | 2016-11-08 04:49 | ABG ---
DateTimeAnalyzed 04:44:00 -_ pH ____7.351 - 7.350 7.450 pCO2 ___43.7__ -mmHg 35.0 45.0 pO2 ___89.3__ -mmHg 69.0 116 HCO3- ___23.6__ -mmol/L 22.0 26.0 ABE ___-1.4__ -mmol/L -2.0 2.0 tHb ____9.1__ -g/dL O2Hb ___94.5__ -% COHb ____1.1__ -% MetHb ____1.4__ -% sO2 ___96.9__ -% 25.0 FIO2 ___60.0__ -% PRVC 16 - PEEP ____8.0__ -cmH2O Set_RR ___16.0__ -b/min Vt __400.0__ -L Drawn By MK - Date/Time Notified____ 04:48:00 -_ Spontaneous_RR ___16.0__ -b/min Oxygen Device 1 VENTILATOR - Notified By MK - Notified Whom _RYAN, RN - B 755 -mmHg tO2 ___12.2__ -Vol% Lj test N/A -
[2016-11-08 05:17] LABS: BASOPHILS % (AUTO) 0.1 % (0-3); EOSINOPHILS % (AUTO) 0.6 % (0-5); MONOCYTES % (AUTO) 6.2 % (4-12); Mean Corpuscular Hemoglobin 27.6 pg (27.0-35.0); Mean Corpuscular Volume 81.5 fL (81-100); NEUTROPHILS % (AUTO) 80.6 % (40-74); Platelet Count 86 bil/L (150-400)
[2016-11-08 05:56] LABS: Magnesium 1.7 mg/dL (1.6-2.6); Phosphorus 5.2 mg/dL (2.5-4.9)
--- NOTE | 2016-11-08 05:57 | NUR ---
Hemodynamics/Pressers/Tele Vigileo was programmed with wrong patient information. Height was correctly entered at 170cm vs 56cm. Vasopressin titrated to OFF. BP labile throughout the night. Per MD order, titrating pressers on MAP and not on SVR/SVRI. Telemetry varied from SB 48-59 to junctional beats with periods of tachycardia 90-110. MD aware and EKG ordered/performed. ABG performed for low SpO2. Results showed low pO2. FiO2 increased from 40-60% with good effect verified by repeat ABG. Continuing to monitor slightly elevated cO2.
[2016-11-08 06:10] LABS: TROPONIN T 0.102 ug/L (0.0-0.011)
[2016-11-08] MEDS ORDERED: Calcium GLUCOnate 10% 1 Gm/50 mL NS IV ONE ×2 (06:25)
[2016-11-08] MEDS ORDERED: Dextrose 5% 0.9% NaCl 1,000 ML IV SCH (06:25)
[2016-11-08] MEDS ORDERED: Ciprofloxacin Inj 400 MG in IV Premix 1 EACH IV SCH (08:00)
[2016-11-08] MEDS: Insulin LISPRO 300 Unit/3 mL Inj SUBQ SCH ×4 (08:00→19:42)
[2016-11-08] MEDS ORDERED: Cefepime Inj 1,000 MG in Dextrose 5% Minibag Plus 50 ML IV ONE (08:00)
[2016-11-08] MEDS ORDERED: Cefepime Inj 1,000 MG in Dextrose 5% Minibag Plus 50 ML IV SCH (08:30)
[2016-11-08] MEDS ORDERED: levoFLOXacin Inj 750 MG in IV Premix 1 EACH IV ONE (08:30)
--- NOTE | 2016-11-08 08:32 | PROG NOTE ---
[address] [address] PROGRESS NOTE PATIENT: YVONNE CANTOR : 1930 MR#: [id number] ADMIT: 11/04/2016 JOB ID: [id number] DATE: 11/08/2016 REASON FOR FOLLOWUP: Septic shock of unknown source, but most likely secondary to pneumonia. INTERVAL HISTORY: Overnight, the patient has had a mixed picture. His vasopressin has been stopped, but he has required slightly more norepinephrine to support his blood pressure. His urine output has been very poor and there has been a moderate increase in his inspired oxygen to maintain his O2 sats. The patient has also developed some diarrhea for which a C. diff has been checked. This case was discussed with the ICU nursing staff as well as the primary care team caring for him here in the unit. Obviously, the patient is unable to supply any additional history as he remains intubated, in shock, and heavily sedated. PHYSICAL EXAMINATION: Reveals a critically ill gentleman, lying supine in the ICU. He has been afebrile and, in fact, hypothermic at times, now 35.9, pulse 70, blood pressure is 124/46, on moderate doses of norepinephrine and at least he is off vasopressors. He is saturating 95% on 60% FiO2. Examination of the eyes reveals no conjunctivitis. Oral endotracheal tube and an orogastric tube in good position. The right neck line in good position. The A-line in good position without inflammation. The lungs notable for coarse breath sounds bilaterally, perhaps more on the right. Cardiac tones without significant murmur, but they are quite distant at this time. Abdomen is soft and without organomegaly, mass or any other notable abnormality. Mcmillan catheter is present. Basically no urine output. The extremities are much better perfused than they were over the past few days, and his feet are now warm. No skin rash is noted. LABORATORIES: Include white count 9600, hematocrit 26, platelet count dropping, now 86,000. Differential white count is much improved. Creatinine is 5. AST is improving, now down to 75. ALT improving, now 87. Procalcitonin was 9.36 yesterday morning. It is now down to 5.6. Albumin 2.8. Urinalysis without white cells. Serologic studies include negative hepatitis C, negative urine Legionella antigen. Strongyloides antibody is pending. Sputum grew Pseudomonas, though the Gram stain did not look much like Pseudomonas in that it had a few polys and some mixed hilary, but the culture did grow a very susceptible Pseudomonas aeruginosa. MRSA screen has been negative. Chest x-ray shows no change in the bilateral infiltrates, perhaps right more than left. IMPRESSION: This is a complex case of a critically ill, elderly gentleman, who presented with basically septic shock. It was unclear initially what the nature of her shock was, but I think the dramatic increase in the procalcitonin along with left-shifted white count and very low SVR all suggested that he was septic. Whether or not he had Pseudomonas pneumonia is unclear to me as his Gram stain and clinical picture did not really fit Pseudomonas pneumonia, but that is what we cultured, and yesterday we made the decision to go ahead and cover as if he did have Pseudomonas pneumonia. RECOMMENDATIONS: 1. Will continue with doxycycline. 2. To the cefepime, we will add Cipro, and both the cefepime and Cipro will be renally adjusted. Whether or not to use dual anti-pseudomonal drugs has always been controversial, but in a high inoculum infection such as pneumonia, it is probably reasonable and we are at least tentatively treating the patient for Pseudomonas pneumonia. 3. We await the many pending other studies. 4. This case discussed extensively with the ICU team members.
[2016-11-08] MEDS: Pantoprazole 4 mg/mL 10 mL Inj IVPUSH SCH (08:43)
[2016-11-08] MEDS: fentaNYL 2,500 mCg/250 mL 2,500 MCG in IV Premix 1 EACH IV SCH (09:43)
--- NOTE | 2016-11-08 10:09 | PCM.PNMED ---
Subjective Date of Service Nov 08, 2016 Subjective Pulmonology consult Progress Note: Attending Dr. Peterson. Requesting provider Dr. Oliver. Reason for consult septic shock Mr. Marrufo is a 85 year old gentleman medical history of CAD (on Brilinta - antiplatelet therapy), HTN, NIDDM and chronic back pain presented to the ED secondary to generalized weakness 2 days. Per patient's patient had been having a steady decline and activity level and ability to ambulate for the last few days (which she initially attributed to his chronic back pain) and culminated on 11/04/2016 with the inability to stand by himself and shortness of breath with lightheadedness. Leading up to hospital admission patient was reportedly seen by primary care provider diagnosed with pneumonia given an outpatient regimen of antibiotics possibly penicillin per . He had had a productive cough with peralta sputum though no reported fevers or other symptoms. He had also been taking increasing amounts of Tylenol for his chronic back pain approximately 1 g every 4 hours. Overnight: Per overnight nurse patient's PaO2 was low was confirmed with ABGs. His FiO2 was increased from 0.4-0.6 with increase in FiO2. Heart rate remained 48-59 with some episodes of tachycardia 90-110. EKG done showed prolonged DE interval. Patient is resting comfortably in bed in no acute distress. Intubated and sedated. Exam Vital Signs Vital Sign - Last Date Time Temp Pulse Resp B/P Pulse Ox O2 Delivery O2 Flow Rate FiO2 11/08/16 07:36 70 124/46 95 60 11/08/16 03:15 35.9 16 Mechanical Ventilator 11/04/16 23:25 6 Intake and Output 11/07/16 11/07/16 11/08/16 Cumulative From/Thru 15:00 23:00 07:00 11/04/16 20:34 - 11/08/16 05:26 Intake Total 686 ml 1089 ml 28543 ml Output Total 1130 ml 0 ml 4550 ml Balance -444 ml 1089 ml 14053 ml Intake Oral 0 ml IV Total 686 ml 908 ml 19515 ml Tube Feeding 91 ml 91 ml Packed Cells 1029 ml Tube Irrigant 90 ml 90 ml Output Urine Total 30 ml 0 ml 50 ml Gastric Drainage Total 200 ml 600 ml Ultrafiltrate 900 ml 3900 ml # Bowel Movements 2 2 7 Exam General: Patient intubated and sedated. HEENT: Anicteric sclerae, pale conjunctivae. Endotracheal tube in place. Facial edema improved Neck:. No jugular venous distension. Central line in place right IJ Cardiovascular: Regular Bradycardic rate. No murmurs appreciated Pulmonary: Patient ventilated, good air movement. Inspiratory and expiratory crackles. Abdomen: Soft, distended, not firm. No appreciable fluid wave. Extremities: Pretibial pitting edema. Right big toe amputation. Skin: Normal temperature, poor turgor. No rash, ulcers, or subcutaneous nodules appreciated. Neurological: Pt sedated Ventilator settings: PRVC. Tidal volume 400. Respiratory rate 16. FiO2 0.6. PEEP 8. ABG: pH 7.35, pCO2 43, pO2 89, HCO3 23 IV drips and Sedatives: Levophed 0.07 mcg/kg/hr, Propofol 25mcg/kg/hr, Fentanyl 75/mcg/kg/hr IV lines: Left Arterial line, right central IJ line, Left AC line. Right forearm line. I&O: last 24 hrs; in + 1089, out - 0, total + 1089. Total to date; in + 99151, out - 4550, total + 17918 IVs and Medications Medications Reviewed: Medications were reviewed in detail Lab and Diagnostics Result Diagram: 11/08/16 0505 11/08/16 0505 Microbiology culture in process X-Rays, CTs and MRIs . CT BRAIN WITHOUT CONTRAST IMPRESSION: Chronic left frontal and right parietal encephalomalacia in addition to age- related involutional changes. No acute intracranial process. CT CHEST, ABDOMEN AND PELVIS WITHOUT CONTRAST IMPRESSION: 1. Low-density bilateral pleural effusions and basilar consolidation suspicious for pneumonia. 2. Small amount of intra-abdominal ascites. No pneumoperitoneum. 3. Normal appendix. 4. Extensive aortic atherosclerosis and coronary artery calcification. Findings suspicious for high-grade infrarenal abdominal aortic stenosis. However, lack of intravenous contrast limits evaluation. 5. Severe centrilobular emphysema. X-RAY ABDOMEN, ONE VIEW IMPRESSION: No acute intra-abdominal findings. X-RAY CHEST ONE VIEW, PORTABLE 11/04/2016 IMPRESSION: Mild increased retrocardiac left basilar opacities possibly low- grade aspiration/atelectasis versus developing pneumonia. Please correlate clinically. Background chronic interstitial disease as before X-RAY CHEST ONE VIEW, PORTABLE 11/05/2016 IMPRESSION: 1. Tubes and lines as above. 2. Left basilar radiopacity. Differential considerations include aspiration, atelectasis, and infection. X-RAY CHEST ONE VIEW, PORTABLE 11/06/2016 IMPRESSION: 1. Support lines and tubes unchanged from prior exam. 2. Pulmonary edema and/or bibasilar pneumonia 12-lead ECG ECG Interpretation: Sinus rhythm rate 60 Prolonged DE interval Time: 21:40 Interpreted by: ED physician Normal ECG Interpretation: No acute ischemic changes Cardiac Echo Impressions Echocardiogram Report Interpretation Summary This is a limited echocardiogram ordered. The left ventricular cavity is small. There is mild-moderate concentric left ventricular hypertrophy. The ejection fraction is estimated to be 60-65%. Assessment of diastolic parameters indicates normal left ventricular diastolic function and normal filling pressures. The right ventricle grossly appears normal in size with probable normal systolic function. There is moderate to severe mitral annular calcification. There is a porcine aortic valve. The aortic valve is not well visualized. No other echocardiographic abnormalities seen. Assessment & Plan 85 year old male with PMH of CAD, HTN, CAD (on Brilinta anticoagulation) currently being treated for for septic shock with possible underlying pneumonia , GI Bleed, renal failure. Hospital day 5, ventilator day 4. 1. Septic Shock. Present on admission. Ongoing. Pt continues to require blood pressure support. Blood pressures are labile becoming normotensive for hours overnight then returning to hypotensive state with wide pulse pressure. Diastolic BP remains low reinforcing the likelihood of septic shock. Possible sources include pneumonia. Other etiologies of his shock include blood loss from as of yet unidentified source. EGD showed no evidence of Bleed. CT ABD showed small amount of intra-abdominal ascites and small amount of hepatosplenic free fluid. Possibility of hemodynamic state resulting from B- Nasra toxicity: Calcium gluconate, glucagon and intralipin given with some improvement. Overall HR has improved and remains mostly in the 60's. - H&H on Admit 7.3/22.9, trended up to 11.6/31.9. Pt has received 3 units PRBC' s. H&H remains stable. - Pt positive 12,700 ml of fluid. Currently on 40 ml/hr NS - Nor epi 0.07 mcg/kg/min - Vasopressin D/C - Procalcitonin trending down 5.6 from 9.4 - Remains A-febrile with resolved leukocytosis. - Blood cultures negative x 2 - Vigileo in place 2. Hypercarbic Respiratory failure, not present on admission. - Intubated and Sedated with propofol fentanyl - ABG's continue to improve. pH 7.35, pCO2 43, pO2 89, HCO3 23 - Duonebs scheduled Q4 3. Pneumonia, present on admission. Ongoing. CT suspicious for pneumonia. PCR positive for Coronovirus, sputum grew Pseudomonas - WBC peak of 13.1, currently 9.6 - Procalcitonin as above - ETT initially placed for airway protection. - Levofloxacin, Cefepime, Doxycycline - ID following, appreciate their recommendations 4. Renal failure (acute on chronic), present on admission. Ongoing. Pt denies and NSAID use aside from ASA. Pt has Hx of elevated Cr ~ 1.7 last hospital admit 05/2016. CT showed decompressed bladder and no hydronephrosis or nephrolithiasis - Cr on admit 7.45, continues to trend down 5.01 s/p HD x 2. - Daily Dialysis continues, total of 4,550 taken off. Remains anuric. - Mcmillan cath in place - NS 40/hr - Nephrology following, continue dialysis per their recs. 5. Emphysema. Present on admission. CT showed severe centrilobular emphysema. - Duonebs Q4 6. Transaminitis, present on admission. Ongoing Pt reported was taking up to 6 grams of T[address]ol daily. CT showed subcentimeter gallstones or sludge within the gallbladder fundus and cystic duct. The gallbladder wall is not well characterized - Acetaminophen 27.1 on 11/04/2016 at 21:00hrs - AST/ALT continue to improve 75/87 from peak of 234/199 - Total Bili 0.4 - Acetylcysteine/Dextrose course complete 7. GI Bleed. Present on admission. Ongoing. EGD showed no evidence of bleed, possibility of a Dieulafoy's lesion - Stool guaiac positive. - Held home meds Brilinta and ASA - H&H remains stable, after receiving 3 units of PRBC's - Lactic acid elevated on admit 3.9, repeat values normal, continue to monitor - Protonix drip D/C per GI. Change to BID - GI following 8. NIDDM. - Currently on sliding scale - Glucose fell to 54 overnight, D5 given with effect 9. Elevated troponin, acute, present on admission. In the setting of Renal failure. - History of CAD, on dual antiplatelet therapy - Initial troponin 0.134, repeat 0.143, 0.102 - Telemetry has shown some PVC's - Echo EF 60%-65%. LVH. - ECG continues to show prolonged DE interval Total Critical Care time spent 90 min. GI Prophylaxis: Proton Pump Inhibitor VTE Prophylaxis: SCDs VTE Mechanical Devices: Intermittant Pneumatic CD Resuscitation Status: CPR: Attempt Resuscitation Attending Statement The patient was seen and examined together with Dr. Monroe on 11/08/2016 and I agree with the history, exam and plan as outlined in the note above. BRANDEN MONROE DO Nov 08, 2016 10:09 Sánchez Peterson MD Nov 19, 2016 10:33
--- NOTE | 2016-11-08 10:17 | DRSVH ---
PROCEDURE: X-RAY CHEST ONE VIEW, PORTABLE ([id number]) INDICATIONS: Pulm Edema TECHNIQUE: One view of the chest was acquired. COMPARISON: [facility], CR, XR CHEST 1VW (PORTABLE), 11/07/2016, 5:23. FINDINGS: Surgical changes and devices: Stable position of ETT, nasogastric tube and right IJ CVL. Lungs and pleura: Diffuse, widespread bilateral pulmonary interstitial and air space opacities are p resent which is not significantly changed from prior examination. Small pleural effusions. No pneum othorax. Mediastinum: Mediastinal contours appear normal. Heart size is enlarged. Bones and chest wall: No suspicious bony lesions. Overlying soft tissues appear unremarkable. IMPRESSION: Persistent pulmonary edema versus bilateral pneumonia. Dictated by: Glynn Maritnes [facility] Interpreted: Melvina Cronin MD on 11/08/2016 at 10:16 Transcribed by: MACRIAN on 11/08/2016 at 10:17 Approved by: Melvina Cronin MD, PhD on 11/08/2016 at 17:02
--- NOTE | 2016-11-08 11:36 | NUR ---
Palliative Care Palliative Care received verbal order from Dr Jones 11/08/16 to assist with goals of care. Patient is an 85 year old man with hx of CAD and HTN. He was admitted 11/04/16 for care of septic shock with possible underlying pneumonia, GI Bleed, BINTA. Currently intubated. Patient lives home with . Zena Marrufo () [phone] Galo Garcia (son) [phone] Palliative Care to follow. Yvette Cage
--- NOTE | 2016-11-08 13:13 | NUR ---
NUTRITION FOLLOW-UP Assess: 85 YO M admitted to CCU for hypovolemic shock, GI bleed, PNA, and renal failure. Pt remains intubated. Pt tolerating trophic feedings well. He is requiring temporary dialysis for acute renal failure. Pt is 12 L positive. PMHX: Anticoagulated on Brilinta, chronic back pain, type 2 DM, cardiomyopathy, coronary disease, HTN, PVD, paralyzed vocal cord, GERD. DIET: NPO. LABS: BUN 50, Cr 5.01, Glu 54, Ca 6.7, Phos 5.2, AST 75, ALT 87, Albumin 2.8 MEDICATIONS: Reviewed. Insulin, Pressor, Propofol @ 13.1 ml/hr (346 kcal/d) GI: 2 BM 11/08 SKIN: No issues noted. WEIGHT: 96.8 kg kg, BMI 33.4 kg/m2, IBW 67.3 kg Admit Wt: 87.3 kg ESTIMATED NEEDS: VENT/BMI/DIALYSIS (admit wt) Calories: 0868-2611 kcal/day (22-25 kcal/kg BW) Protein: 81-135 g/day (1.2-2.0 g/kg IBW) NUTRITION DIAGNOSIS: 1) Inadequate oral intake related to decreased ability to consume sufficient energy as evidenced by NPO/Vent status.---PERSISTS INTERVENTION: 1) Recommend advancing Nepro 10 ml q 6 hrs to goal rate of 46 ml/hr to provide 1822 kcal/d (2186 kcal/d w/ propofol), 82 g/d protein, and 915 ml/d fluid, meeting 100% of est needs. 2) Adjust rate based on Propofol. MONITOR/EVALUATE: NPO/Vent status, GI, nutrition support, labs, nutrition status. Follow per high nutrition risk guidelines.
--- NOTE | 2016-11-08 17:34 | PCM.PNNEPH ---
Subjective Date of Service Nov 08, 2016 Subjective The patient remains N Lisa with 30 mL subdural and on for the last 24 hours. He remains ventilatory dependent otherwise she has had very little change in his overall condition. His hemoglobin this morning is 8.8, sodium 137, potassium 4.5, chloride 97, bicarbonate 21, BUN and creatinine were 50 and 5.01. Exam Vital Signs Vital Sign - Last Date Time Temp Pulse Resp B/P Pulse Ox O2 Delivery O2 Flow Rate FiO2 11/08/16 16:20 63 107/37 99 60 11/08/16 12:30 36.3 16 Mechanical Ventilator 11/04/16 23:25 6 Intake and Output 11/07/16 11/07/16 11/08/16 Cumulative From/Thru 15:00 23:00 07:00 11/04/16 20:34 - 11/08/16 05:26 Intake Total 686 ml 1089 ml 87918 ml Output Total 1130 ml 0 ml 4550 ml Balance -444 ml 1089 ml 76369 ml Intake Oral 0 ml IV Total 686 ml 908 ml 28132 ml Tube Feeding 91 ml 91 ml Packed Cells 1029 ml Tube Irrigant 90 ml 90 ml Output Urine Total 30 ml 0 ml 50 ml Gastric Drainage Total 200 ml 600 ml Ultrafiltrate 900 ml 3900 ml # Bowel Movements 2 2 7 Exam Patient remains on a ventilator and sedated. He remains rather pale. Lungs showed some scattered rhonchi but otherwise were clear. Heart: Somewhat tacky. Abdomen remains mildly distended but nontender. Extremities show some mild generalized edema. Lab and Diagnostics Result Diagram: 11/08/16 0505 11/08/16 0505 Microbiology culture in process X-Rays, CTs and MRIs . CT BRAIN WITHOUT CONTRAST IMPRESSION: Chronic left frontal and right parietal encephalomalacia in addition to age- related involutional changes. No acute intracranial process. CT CHEST, ABDOMEN AND PELVIS WITHOUT CONTRAST IMPRESSION: 1. Low-density bilateral pleural effusions and basilar consolidation suspicious for pneumonia. 2. Small amount of intra-abdominal ascites. No pneumoperitoneum. 3. Normal appendix. 4. Extensive aortic atherosclerosis and coronary artery calcification. Findings suspicious for high-grade infrarenal abdominal aortic stenosis. However, lack of intravenous contrast limits evaluation. 5. Severe centrilobular emphysema. X-RAY ABDOMEN, ONE VIEW IMPRESSION: No acute intra-abdominal findings. X-RAY CHEST ONE VIEW, PORTABLE 11/04/2016 IMPRESSION: Mild increased retrocardiac left basilar opacities possibly low- grade aspiration/atelectasis versus developing pneumonia. Please correlate clinically. Background chronic interstitial disease as before X-RAY CHEST ONE VIEW, PORTABLE 11/05/2016 IMPRESSION: 1. Tubes and lines as above. 2. Left basilar radiopacity. Differential considerations include aspiration, atelectasis, and infection. X-RAY CHEST ONE VIEW, PORTABLE 11/06/2016 IMPRESSION: 1. Support lines and tubes unchanged from prior exam. 2. Pulmonary edema and/or bibasilar pneumonia 12-lead ECG ECG Interpretation: Sinus rhythm rate 60 Prolonged SD interval Time: 21:40 Interpreted by: ED physician Normal ECG Interpretation: No acute ischemic changes Cardiac Echo Impressions Echocardiogram Report Interpretation Summary This is a limited echocardiogram ordered. The left ventricular cavity is small. There is mild-moderate concentric left ventricular hypertrophy. The ejection fraction is estimated to be 60-65%. Assessment of diastolic parameters indicates normal left ventricular diastolic function and normal filling pressures. The right ventricle grossly appears normal in size with probable normal systolic function. There is moderate to severe mitral annular calcification. There is a porcine aortic valve. The aortic valve is not well visualized. No other echocardiographic abnormalities seen. Plan Impression Impression #1 acute tubular necrosis #2 GERD-induced acute kidney injury secondary to acetaminophen No. 3 metabolic acidosis number for hyperkalemia #5 hypotension Recommendations #10 go ahead and do another dialysis treatment on him today. History dialyzes 4 hours on a revaclear dialyzer, 34 potassium bath and a 40 bicarbonate bath, a loading dose thousand units of heparin and will attempt to take 2 L of fluid off. Plan The patient will continue hyperbaric treatments. Will return () for treatment #() Shawn Capps DO Nov 08, 2016 17:34
--- NOTE | 2016-11-08 17:46 | NUR ---
P: Hemodynamics, Resp, Neuro, Nutrition, Social, Skin I,E: Pt's BP running 90-120's sys over 40's diastolic. CVP 14-20 today. UOP remains scant, with approx 10cc out today. He has been in SR/SB with ectopi, but not as much as yesterday. He has been able to tolerate dialysis much better today and only briefly had a drop in BP into the 90's. Pt remains on the vent, sats are high 90's on 60% FIO2. He has small to scant pink/estrada secretions suctioned infrequently. Pt wakes easily from the sedation, and appears to track but does not follow commands. 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 Pt has tube feeds running and these have been increased to 20cc per hour and his residuals have been 60-100cc. He has not had a BM today and his c diff was negative. Pt's was here today and was up dated on plan of care and pt condition today. She was also able to meet with palliative care to talk about goals of care. Pt's skin remains unchanged, feet ulcers are healing and calmoseptine is helping the redness on his buttocks and in his groin.
--- NOTE | 2016-11-08 18:15 | PCM.CONPAL ---
Date of Service Nov 08, 2016 Date of Hospital Admission: Nov 04, 2016 at 22:13 Date of Palliative Consult: Nov 08, 2016 Requesting Provider: Miguel Ángel Jones DO Comment: PCP Jia GUERRERO Reason Palliative Care Consult: Goals of Care Discussion Hospital Unit @time of consult: Critical Care Palliative Care Recommendation Summary of palliative recommendations: -Symptom management (Pain/other) Goals of care at this point are to do everything possible in support.-This requires no change. Certainly if he deteriorates there is little more that can be done. More difficult for the at this point is if he is profoundly debilitated how she will manage. She requires consistency of communication-see discussion. Recommend identifying one person on team to give her a summary of her 's course on a daily basis. Offered to discuss with anyone in her family or his family regarding severity of illness-she does not believe this is necessary -DPOA/Advanced Directives/POLST-no paperwork has been completed -Family/emotional support-his is remarkably isolated. Encouraged her to reach out to her son's -Spiritual support-she is quite adamantly not interested in any outside spiritual support Additional Medical Diagnoses with primary management by Hospitalist team include : Sepsis syndrome Acute renal failure on chronic renal failure Extensive vascular disease Respiratory failure on top of severe emphysema GI bleed with antral erosion- now off antiplatelets Diabetes Problems: End of Life Preferences FULL CODE Disposition TBD Resuscitation Status Resuscitation Status: CPR: Attempt Resuscitation POLST Updates/Changes Artificially Admin Nutrition: Long-Term Nutrition by Tube Feeding Pt History History of Present Illness PALLIATIVE CARE CONSULT requesting provider: Dr. Miguel Ángel Jones PCP Jennifer GUERRERO reason for consult: [facility] 85-year-old gentleman with known severe atherosclerotic vascular disease status post [place] with stenting of CAD and aortic valve porcine replacement in 2007. He has also had stents placed in both carotids. He has known chronic renal insufficiency with a creatinine at baseline in the range of 1.5-1.8 last noted May 2016. He apparently was in his usual state of health which involved walking with a cane or walker and spending a fair amount of time in his recliner. The day before and day of admission he was not drinking much for fluids was taking some by mouth in 4 meals but had a watery stool at home was incontinent and became so weak he was not able to stand up. He was brought to the emergency room with note of melena creatinine of 7.45 elevated transaminases. He became hypotensive and obtunded requiring pressors and intubation. Echocardiogram noting EF of 60-65% moderately severe LVH, chest x- ray noting pulmonary edema versus diffuse infiltrates, brain CT noting left frontal and right parietal old CVAs with evidence of encephalomalacia, CT of chest abdomen pelvis without contrast noting severe centrilobular emphysema and diffuse extensive vascular disease with probable high-grade stenosis of the infrarenal aorta. He lives with his of over 50 years. He apparently is somewhat estranged from his family. His has 2 sons from a prior marriage who live in the area with "an okay relationship" with her . He is an ex smoker having discontinued smoking in 1987. He has a history of chronic low back pain and took regular high doses of acetaminophen and was noted to be toxic on admission. 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 His describes that he is her best friend and only friend. It sounds like they have been very isolated-cantankerous in her words. She verbalizes strong distrust for any staff in a jail (her was in 1 following one of his surgeries), the government, any holiness, and most people. He is presently in the intensive care unit since his admission on 11/04 intubated on pressors and presently being dialyzed. Past Medical History Significant PMH Noted: Chronic low back pain status post 3 surgeries Ischemic cardiomyopathy Status post aortic valve replacement porcine as well as history of angioplasty and stenting coronary arteries 2007 Bilateral stenting of carotids Chronic dysphagia secondary to vocal cord injury/paralysis Hypertension Umr-vfakjxw-vuosbzibo diabetes on glipizide Chronic renal insufficiency History of CVAs Severe emphysema noted on chest CT Chronic antiplatelet therapy on Brilinta No known allergies Recently toxic from Coreg and acetaminophen Ex smoker 1987 No history of alcohol overuse Family history of ischemic heart disease- details unknown Social History Living Situation: Lives with his Spiritual Support Spiritual Support His states that neither of them go to holiness. She is cheondoism and states he has same Sabianism sterling. Significant distress of churches Responsive Patient Symptoms Other Unable to obtain being sedated on ventilator Palliative Performance Scale PPS Patient Status: Baseline PPS Ambulation: Reduced PPS Activity: Unable to do most activity PPS Self-Care: Occasional assistance necessary PPS Conscious Level: Full or confusion Performance Scale: 70% POLST at Time of Admission Previous POLST?: No Allergy Allergies Reviewed: Yes Medications Current Medications: Current Medications Doxycycline Hyclate/Dextrose/ Water 100 ml @ 50 mls/hr Q24H IV Last administered on 11/07/16 20:42; Admin Dose 50 MLS/HR; Start 11/06/16 at 20:00 Pantoprazole 40 mg DAILYAC IVPUSH Last administered on 11/08/16 08:43; Admin Dose 40 MG; Start 11/07/16 at 07:30 Albuterol/ Ipratropium 3 ml 3 ml Q4H NEB Last administered on 11/08/16 16:24; Admin Dose 3 ML; Start 11/07/16 at 10:11 Dextrose/Sodium Chloride 1,000 ml @ 40 mls/hr Q24H IV Last administered on 11/08 06:42; Admin Dose 40 MLS/HR; Start 11/08/16 at 06:25 Ciprofloxacin Lactate 400 mg/ Premix 200 ml @ 200 mls/hr Q24 IV; Start at 08:00; Status UNV Cefepime HCl 1000 mg/Dextrose/Water 50 ml @ 12.5 mls/hr Q24 IV; Start 11/08/16 at 08:30; Stop 11/08/16 at 11:26; Status DC Levofloxacin/ Dextrose 500 mg/ Premix 100 ml @ 100 mls/hr Q48 IV; Start at 08:30 Cefepime HCl/ Dextrose/Water 50 ml @ 12.5 mls/hr 17 IV; Start 11/08/16 at 17:00 Scheduled Aspirin (Aspirin) 325 Mg Tablet 325 MG PO DAILY Carvedilol (Carvedilol) 3.125 Mg Tablet 3.125 MG PO BID Glipizide (Glipizide) 5 Mg Tablet 2.5 MG PO BID Losartan Potassium (Losartan Potassium) 100 Mg Tablet 50 MG PO DAILY Omeprazole (Omeprazole) 20 Mg Capsule.dr 20 MG PO DAILY Rosuvastatin Calcium (Rosuvastatin Calcium) 40 Mg Tablet 40 MG PO DAILY Ticagrelor (Brilinta) 60 Mg Tablet 60 MG PO BID Objective Findings Exam Vital Sign - Last Date Time Temp Pulse Resp B/P Pulse Ox O2 Delivery O2 Flow Rate FiO2 11/08/16 16:20 63 107/37 99 60 11/08/16 12:30 36.3 16 Mechanical Ventilator 11/04/16 23:25 6 Intake and Output 11/07/16 11/07/16 11/08/16 Cumulative From/Thru 15:00 23:00 07:00 11/04/16 20:34 - 11/08/16 05:26 Intake Total 686 ml 1089 ml 96349 ml Output Total 1130 ml 0 ml 4550 ml Balance -444 ml 1089 ml 31862 ml Intake Oral 0 ml IV Total 686 ml 908 ml 65891 ml Tube Feeding 91 ml 91 ml Packed Cells 1029 ml Tube Irrigant 90 ml 90 ml Output Urine Total 30 ml 0 ml 50 ml Gastric Drainage Total 200 ml 600 ml Ultrafiltrate 900 ml 3900 ml # Bowel Movements 2 2 7 Objective Sedated intubated on pressors and presently being dialyzed Chest x-ray today notes pulmonary edema versus diffuse infiltrates Creatinine now in the range of 5 Echocardiogram EF of 60-65% and moderate to severe LVH General: Unresponsive, Chemically sedated HEENT: Other (reportedly very hard of hearing as per his ) Lab/Diagnostics Lab and Imaging results reviewed in detail in EMR. Patient/Family Conference Members Present Family Members Present His Zena Medical Team Members Present? [facility] Discussion/Goals of Care Discussion FAMILY UNDERSTANDING OF DISEASE: Discussion exclusively with his Zena. She is generally distraught by his severity of illness. She is confused as to why he deteriorated and was able to talk and walk when he came in and now she is in the intensive care unit intubated. She seems to have no outside support. Her sons are "at least driving me to the hospital". She states they work but she thinks they understand the present situation. She is upset regarding this consultation thinking it means that she needs to withdraw care. She states the patient always told her that that he wanted "everything done". He also told her that he would never go to a jail again. She does not believe that he would mind being dialyzed. She is easily overwhelmed by different comments regarding his situation. She identifies that on staff will comment that something is better than another will comment that something is worse. She finds this totally confusing. Reviewed multiple organ systems that presently are dysfunctioning-- being all. His liver function tests have improved significantly now nearly normalized. Suspect she will need custodial dialysis. Suspect his likelihood of regaining independence is slim. She is aware that he may not survive this hospitalization. DISEASE PROGRESSION/EVIDENCE OF DECLINE: His was unaware of severity of his disease probably due to his relative lack of activity HOPES/WORRIES: Her hope is that she would be able to take him home once this acute illness is controlled. She states she has no way of knowing how she would be able to manage that. FAMILY WISHES/VALUES: Patient needs a clear consistent communicator probably on a daily basis to put the general picture together. Reviewed trying to tie his request for everything with never going to a jail meaning never dependent. Palliative Care counselled: Time spent Total time 80 minutes; >50% face to face with patient and/or family, providing counselling regarding plans and recommendations, and in care coordination with his/her medical teams. Including 60 minutes in [id number] conversation with his , review of chart and brief exam of patient I also spent an additional [ ] minutes counseling for advanced care planning with the patient/the patients family/the surrogate decision maker. copies to: Jaun Hollis MD; Jennifer Moya Deborah A MD Nov 08, 2016 18:15
--- NOTE | 2016-11-08 18:25 | PCM.PNMED ---
Subjective Date of Service Nov 08, 2016 Subjective Patient had a hypoxic episode FiO2 was increased from 0.4-0.6. Patient showing some signs of possible tachybradycardia, sitting more in the bradycardic range. EKG was obtained and patient showed first-degree AV block which is insistent. Patient sedated this morning. Discussion by ICU team with patient's primary care doctor failed outpatient treatment poor health for some time and palliative care be discussed today. Exam Vital Signs Vital Sign - Last Date Time Temp Pulse Resp B/P Pulse Ox O2 Delivery O2 Flow Rate FiO2 11/08/16 16:20 63 107/37 99 60 11/08/16 12:30 36.3 16 Mechanical Ventilator 11/04/16 23:25 6 Intake and Output 11/07/16 11/07/16 11/08/16 Cumulative From/Thru 15:00 23:00 07:00 11/04/16 20:34 - 11/08/16 05:26 Intake Total 686 ml 1089 ml 57339 ml Output Total 1130 ml 0 ml 4550 ml Balance -444 ml 1089 ml 16738 ml Intake Oral 0 ml IV Total 686 ml 908 ml 15168 ml Tube Feeding 91 ml 91 ml Packed Cells 1029 ml Tube Irrigant 90 ml 90 ml Output Urine Total 30 ml 0 ml 50 ml Gastric Drainage Total 200 ml 600 ml Ultrafiltrate 900 ml 3900 ml # Bowel Movements 2 2 7 Exam General: Patient intubated and sedated. HEENT: Central line in place Cardiovascular: Currently bradycardic with no murmurs Pulmonary: Lungs are somewhat coarse rhonchus with crackles Abdomen: Soft, distended, mildly firm but improved since yesterday Extremities: Pretibial pitting edema. Right big toe amputation. Skin: No rashes Neurological: Pt sedated IVs and Medications Medications Reviewed: Medications were reviewed in detail Lab and Diagnostics Result Diagram: 11/08/16 0505 11/08/16 0505 Microbiology culture in process X-Rays, CTs and MRIs . CT BRAIN WITHOUT CONTRAST IMPRESSION: Chronic left frontal and right parietal encephalomalacia in addition to age- related involutional changes. No acute intracranial process. CT CHEST, ABDOMEN AND PELVIS WITHOUT CONTRAST IMPRESSION: 1. Low-density bilateral pleural effusions and basilar consolidation suspicious for pneumonia. 2. Small amount of intra-abdominal ascites. No pneumoperitoneum. 3. Normal appendix. 4. Extensive aortic atherosclerosis and coronary artery calcification. Findings suspicious for high-grade infrarenal abdominal aortic stenosis. However, lack of intravenous contrast limits evaluation. 5. Severe centrilobular emphysema. X-RAY ABDOMEN, ONE VIEW IMPRESSION: No acute intra-abdominal findings. X-RAY CHEST ONE VIEW, PORTABLE 11/04/2016 IMPRESSION: Mild increased retrocardiac left basilar opacities possibly low- grade aspiration/atelectasis versus developing pneumonia. Please correlate clinically. Background chronic interstitial disease as before X-RAY CHEST ONE VIEW, PORTABLE 11/05/2016 IMPRESSION: 1. Tubes and lines as above. 2. Left basilar radiopacity. Differential considerations include aspiration, atelectasis, and infection. X-RAY CHEST ONE VIEW, PORTABLE 11/06/2016 IMPRESSION: 1. Support lines and tubes unchanged from prior exam. 2. Pulmonary edema and/or bibasilar pneumonia 12-lead ECG ECG Interpretation: Sinus rhythm rate 60 Prolonged NE interval Time: 21:40 Interpreted by: ED physician Normal ECG Interpretation: No acute ischemic changes Cardiac Echo Impressions Echocardiogram Report Interpretation Summary This is a limited echocardiogram ordered. The left ventricular cavity is small. There is mild-moderate concentric left ventricular hypertrophy. The ejection fraction is estimated to be 60-65%. Assessment of diastolic parameters indicates normal left ventricular diastolic function and normal filling pressures. The right ventricle grossly appears normal in size with probable normal systolic function. There is moderate to severe mitral annular calcification. There is a porcine aortic valve. The aortic valve is not well visualized. No other echocardiographic abnormalities seen. Assessment & Plan 85 year old male with PMH of CAD, HTN, CAD (on Brilinta anticoagulation) admitted for septic shock with possible underlying pneumonia, GI Bleed, BINTA. Acute hypoxic and hypercarbic respiratory failure, POA -Patient was intubated due to septic shock and airway protection -Patient may maintain on ventilator, managed by CT/pulmonary -FiO2 was turned up overnight due to hypoxia; patient was also autopeeping Septic shock. Present on admission. Ongoing. - In shock on arrival to ED with septic shock pattern with source likely pulmonary; pt treated for possible beta-marialuisa overdose as well without resolution - Initial Hgb low and pt has received 3 units PRBC's. EGD was negative - Pt positive 12+ liters of fluid and 15Kg up in weight. Currently on 40 ml/hr NS - Nor epi 0.07 mcg/kg/min; Vasopressin 0.03 units/min discontinued overnight - Vitals show decreased diastolic suggestive shock -Adjustments to pressors being made daily Pneumonia (probable GNR (pseudomonas) pneumonia, present on admission. Ongoing. CT suspicious for pneumonia. PCR positive for Coronovirus, initial sputum grew Pseudomonas - initial leukocytosis, elevated procalcitonin, hypothermia, shock, and elevated lactic acid; ETT initially placed for airway protection. - MRSA negative; Pos pseudomonas from trachea (?colonized) and coronavirus - Continue Doxycycline and Cefepime - Initially started on Ceftriaxone and linezolid but these have been switched for above. - ID following, appreciate their recommendations Acute on chronic renal failure (CKD 3), present on admission. Ongoing. - Denies and NSAID use aside from ASA. - Baseline Cr ~ 1.7 last hospital admit 05/2016 - Cr improved overnight; continuing dialysis today - CT showed decompressed bladder and no hydronephrosis or nephrolithiasis - Fluids per nephrology - Nephrology following, appreciate their input Hypercapnic respiratory failure, not present on admission. resolved - Intubated and Sedated with propofol - ABG's show resolution of hypercapnia - Pt also on Duonebs Q4 Emphysema. Present on admission - CT showed severe centrilobular emphysema. - Bronchodilators Transaminitis, present on admission. resolving - Questionably due to chronic Tylenol overdose vs shock liver - Initial CT ABD showed small amount of intra-abdominal ascites and small amount of hepatosplenic free fluid. - CT showed subcentimeter gallstones or sludge within the gallbladder fundus and cystic duct. - Acetaminophen 27.1 on 11/04/2016 at 21:00hrs - Acetylcysteine/Dextrose course complete GI Bleed. Present on admission. Ongoing. EGD showed no evidence of bleed, possibility of a Dieulafoy's lesion - Held home meds Brilinta and ASA - H&H remains somewhat stable; drop of 2 over the last 48 hours - Protonix BID - GI following NIDDM. - well controlled on sliding scale - Consider drip if Glucose levels maintain elevation Elevated troponin in renal failure, acute, present on admission. - History of CAD, on dual antiplatelet therapy - Trend for resolution; next lab tomorrow Disposition: The patient's prognosis is extremely guarded after discussion with primary care doctor. Palliative care was involved in discussions today with . At the moment sounds as if the patient is a full code but does not wish to go to a SNF. GI Prophylaxis: Proton Pump Inhibitor VTE Prophylaxis: SCDs VTE Mechanical Devices: Intermittant Pneumatic CD Resuscitation Status: CPR: Attempt Resuscitation Time spent 40 min Attending Statement Patient seen and examined with house staff, agree with all attached documentation. Miguel Ángel Jones DO Nov 08, 2016 18:25 Lj Lyle MD Nov 10, 2016 07:28
--- NOTE | 2016-11-08 19:00 | NUR ---
Dialysis note: 4 hr tx Net UF 1900. accessed right femoral line without difficulty. ran A-V, V-A. QB 300 throughout tx. Bolused 150 30 min into tx. SBP in the 90s for most of tx. Pt was sedated with fentanyl and propofol and on norepinephrine. Intubated and on 60% O2. Dresg CDI. limbs dwelled with heparin 1000 and secured with caps. Pt stable at end of tx. Please see DTR for complete record of VS.
[2016-11-08] MEDS: Doxycycline Inj 100 MG in Dextrose 5% Minibag Plus 100 ML IV SCH (19:42)
[2016-11-08] MEDS: Cefepime Inj 1,000 MG in Dextrose 5% Minibag Plus 50 ML IV SCH (20:26)
[2016-11-08 21:19] LABS: BASOPHILS % (AUTO) 0.1 % (0-3); EOSINOPHILS % (AUTO) 0.4 % (0-5); MONOCYTES % (AUTO) 7.2 % (4-12); NEUTROPHILS % (AUTO) 82.9 % (40-74); Platelet Count 90 bil/L (150-400)
--- NOTE | 2016-11-08 21:25 | ABG ---
DateTimeAnalyzed 21:21:00 -_ pH ____7.371 - 7.350 7.450 pCO2 ___52.2__ -mmHg 35.0 45.0 pO2 ___96.7__ -mmHg 69.0 116 HCO3- ___29.5__ -mmol/L 22.0 26.0 ABE ____4.0__ -mmol/L -2.0 2.0 tHb ____9.5__ -g/dL O2Hb ___95.6__ -% COHb ____1.2__ -% MetHb ____1.2__ -% sO2 ___97.9__ -% 25.0 FIO2 ___60.0__ -% PRVC 16 - PEEP ____8.0__ -cmH2O Set_RR ___16.0__ -b/min Vt __400.0__ -L Drawn By rn - Date/Time Notified____ 21:24:00 -_ Spontaneous_RR ___16.0__ -b/min Oxygen Device 1 VENTILATOR - Notified By MM - Notified Whom _RYAN, RN - B 753 -mmHg tO2 ___12.9__ -Vol% Lj test N/A -
[2016-11-08 21:41] LABS: Magnesium 1.5 mg/dL (1.6-2.6); Phosphorus 3.9 mg/dL (2.5-4.9)
[2016-11-08] MEDS ORDERED: Calcium GLUCO 10% (Gm) Inj 2 GM in 0.9% Sodium Chloride 100 ML IV ONE (22:15)
[2016-11-08] MEDS ORDERED: Magnesium Sulf 4 Gm/100 mL D5W Premix IV ONE (23:15)
[2016-11-08] MEDS: 23.4% Sodium Chloride Inj 154 MEQ in Dextrose 10% 1,000 ML IV SCH (23:20)
[2016-11-09] VITALS (10 sets, daily range): BP systolic 112–148; BP diastolic 40–53; PULSE 60–66; RESP 18; O2SAT 96–99
[2016-11-09] MEDS: Chlorhexidine 0.12% 15 mL Oral Solution MUC_MEMBRM SCH ×6 (01:21→20:30)
[2016-11-09] MEDS: Norepineph 8,000 mCg/250 mL NS 8,000 MCG in IV Premix 1 EACH IV SCH (01:24)
[2016-11-09] MEDS: Albuterol-Ipratropium 3 mL Inhalation Solution NEB SCH ×5 (04:12→20:34)
--- NOTE | 2016-11-09 05:14 | ABG ---
DateTimeAnalyzed 05:10:00 -_ pH ____7.399 - 7.350 7.450 pCO2 ___45.8__ -mmHg 35.0 45.0 pO2 ___87.4__ -mmHg 69.0 116 HCO3- ___27.7__ -mmol/L 22.0 26.0 ABE ____3.0__ -mmol/L -2.0 2.0 tHb ____9.4__ -g/dL O2Hb ___95.0__ -% COHb ____1.1__ -% MetHb ____1.3__ -% sO2 ___97.3__ -% 25.0 FIO2 ___60.0__ -% PRVC 18 - PEEP ____8.0__ -cmH2O Set_RR ___18.0__ -b/min Vt __400.0__ -L Drawn By RN - Date/Time Notified____ 05:13:00 -_ Spontaneous_RR ___18.0__ -b/min Oxygen Device 1 VENTILATOR - Notified By MM - Notified Whom _RYAN, RN - B 761 -mmHg tO2 ___12.6__ -Vol% Lj test N/A -
[2016-11-09 05:20] LABS: BASOPHILS % (AUTO) 0.1 % (0-3); EOSINOPHILS % (AUTO) 0.7 % (0-5); MONOCYTES % (AUTO) 8.2 % (4-12); Mean Corpuscular Hemoglobin 27.9 pg (27.0-35.0); Mean Corpuscular Volume 82.4 fL (81-100); NEUTROPHILS % (AUTO) 81.2 % (40-74); Platelet Count 83 bil/L (150-400)
--- NOTE | 2016-11-09 05:53 | NUR ---
Ca Mg/Tele/TF/Sugars Pt having increase in ectopy. Post dialysis labs drawn and sent to lab. Magnesium low at 1.5, calcium low at 6.7. Order received for 4Gram Magnesium Sharan and 2Gram Calcium Gluconate. Post dialysis Cefepime infused without event. While replacing electrolytes pt converted to Trigeminy and occasionally ST with PVCs and noticeably decrease in BP requiring increasing titration of Levophed to maintain MAP>65. RR on Vent increased from 16 to 18 RR per minute as ABG showed increasingly high cO2. Pt maintaining blood sugars ranging from mid 60 to 70s. Pt started on D10NS at 40ml/hour and then increased to 80ml/hour. Pt vomited clear estrada fluid. Subglottic suction returning estrada fluid, possibly tube feed. TF stopped. Dr. Shetty consulted regarding patient. TF stopped for 2 hour and then restarted at trickle 10ml/hour. Skin remains clear and grossly unchanged.
[2016-11-09 05:54] LABS: Magnesium 2.4 mg/dL (1.6-2.6); Phosphorus 4.1 mg/dL (2.5-4.9)
[2016-11-09] MEDS: Pantoprazole 4 mg/mL 10 mL Inj IVPUSH SCH (07:58)
[2016-11-09] MEDS: Insulin LISPRO 300 Unit/3 mL Inj SUBQ SCH ×4 (07:58→21:54)
--- NOTE | 2016-11-09 08:12 | DRSVH ---
PROCEDURE: X-RAY CHEST ONE VIEW, PORTABLE ([id number]) INDICATIONS: pulm edema TECHNIQUE: One view of the chest was acquired. COMPARISON: [facility], CR, XR CHEST 1VW (PORTABLE), 11/08/2016, 5:27. FINDINGS: Surgical changes and devices: Stable position of ETT, nasogastric tube and right IJ CVL. Lungs and pleura: Diffuse, widespread bilateral pulmonary interstitial and air space opacities are p resent which is not significantly changed from prior examination. Small pleural effusions. No pneum othorax. Mediastinum: Mediastinal contours appear normal. Heart size is enlarged. Bones and chest wall: No suspicious bony lesions. Overlying soft tissues appear unremarkable. IMPRESSION: Persistent pulmonary edema versus pneumonia. Dictated by: Glynn ERVIN Interpreted: Mary Villanueva MD on 11/09/2016 at 8:11 Transcribed by: AURELIANO on 11/09/2016 at 8:11 Approved by: Mary Villanueva M.D. on 11/09/2016 at 21:19
--- NOTE | 2016-11-09 08:49 | PROG NOTE ---
[address] [address] PROGRESS NOTE PATIENT: YVONNE CANTOR : 1930 MR#: [id number] ADMIT: 11/04/2016 JOB ID: [id number] DATE: 11/09/2016 INFECTIOUS DISEASE FOLLOW UP NOTE: REASON FOR FOLLOWUP: Septic shock secondary to pneumonia with associated renal failure and hepatic injury. INTERVAL HISTORY: Overnight, the patient has been relatively stable though he remains vasopressor and ventilator dependent. He is sedated and not able to offer any additional history. This case was discussed at the bedside with the ICU nurse as well as the ICU medical team. PHYSICAL EXAMINATION: Reveals an afebrile gentleman, temperature 35.9, pulse 63, respiratory rate 18, blood pressure 112/43. He is saturating 98% on 60% and 8 of PEEP. This is an increase over the 40% he was receiving much of yesterday. He remains on vasopressor agents though his dose of norepinephrine has been lowered considerably. He continues to be in renal failure and has been requiring dialysis through a right groin line. Examination of the eyes reveals no conjunctival abnormalities or scleral icterus. A right neck triple lumen line is in good position. Oral cavity with endotracheal tube and orogastric tube. Lungs with rales at the bases. Cardiac examination is generally regular with ectopic beats which appears PVCs on the monitor. First degree AV block is noted. The abdomen is distended without obvious organomegaly. Mcmillan catheter is present. Right groin dialysis catheter present. No skin rash. The extremities are reasonably well perfused. LABORATORIES: Include white count 10,000 today, platelets 83,000. Creatinine is 4 but, of course, he has been dialyzed. LFTs continue to improve. AST down to 52. ALT down to 66. Albumin 2.5. Procalcitonin is steadily dropping. It was 9.4 three days ago, 5.6 yesterday and 3.46 today. Serologic studies negative for hepatitis C and Strongyloides. Microbiology studies include the previously mentioned Pseudomonas growing from the airway even though the Gram stain did not look much like Pseudomonas. C. difficile has returned negative. Other cultures negative though a multiplex PCR did detect ness virus on a nasopharyngeal swab. Today's chest radiograph shows persistent infiltrates, pulmonary edema versus pneumonia. IMPRESSION: Overall, the patient is perhaps slightly improved though he is requiring more ventilatory support overnight but less vasopressor support. He continues to be essentially aneuric and to be dialysis dependent. His liver is, however, improving from the initial insult which we think was primarily due to Tylenol and secondarily due to his shock. His septic shock seems to be improving and his procalcitonin is dropping. His white count is stable with less vasopressor requirement. We presume his septic shock is on the basis of pneumonia. Whether or not this is truly a Pseudomonas pneumonia is unclear, but will continue to cover broadly with dual agents for high inoculum Pseudomonas pneumonia as this would be the worse case scenario. RECOMMENDATIONS: 1. Will drop the doxycycline as the patient is now receiving levofloxacin in lieu of Cipro that was not available. 2. Will continue with levo, both as a second Pseudomonas drug and for atypical coverage. 3. Will continue with cefepime. 4. Note that all antibiotics will be renally adjusted. 5. Will continue to follow this patient closely with you. 6. Note that I will be out of town the next three days returning on Sunday morning. I can be reached by telephone or text and the resident who works with me will be seeing the patient and corresponding with me tomorrow.
--- NOTE | 2016-11-09 09:16 | PCM.PNNEPH ---
Subjective Date of Service Nov 09, 2016 Subjective The patient's overall condition remains about the same if not a bit worse. He remains ventilatory dependent and is not tolerating his tube feedings. He appears to have some increasing abdominal girth and his intra-abdominal pressure this morning was 18. His CVP is 19. He continues to be anicteric this morning his sodium is 137, potassium 3.7, chloride 96, bicarbonate 25, BUN and creatinine were 32 and 4.0 respectively. Exam Vital Signs Vital Sign - Last Date Time Temp Pulse Resp B/P Pulse Ox O2 Delivery O2 Flow Rate FiO2 11/09/16 07:51 35.9 63 18 112/43 98 Mechanical Ventilator 60 11/04/16 23:25 6 Intake and Output 11/08/16 11/08/16 11/09/16 Cumulative From/Thru 15:00 23:00 07:00 11/04/16 20:34 - 11/09/16 05:42 Intake Total 1164 ml 1382 ml 04067 ml Output Total 2145 ml 105 ml 6800 ml Balance -981 ml 1277 ml 13245 ml Intake Oral 0 ml IV Total 1164 ml 1198 ml 85928 ml Tube Feeding 154 ml 245 ml Packed Cells 1029 ml Tube Irrigant 30 ml 120 ml Output Urine Total 45 ml 5 ml 100 ml Gastric Drainage Total 200 ml 100 ml 900 ml Ultrafiltrate 1900 ml 5800 ml # Bowel Movements 0 0 7 Exam Patient remains sedated on a ventilator. Lungs showed some scattered rhonchi with bibasilar rales noted. There is also some scattered end expiratory wheezes noted. Heart was regular rhythm with somewhat distant point the patient 's body habitus. The abdomen is markedly distended with some minimal bowel sounds at best. There is diffuse tympany and evidence of some free fluid in both flanks. No rebound noted. Extremities continued demonstrates some mild generalized edema. Lab and Diagnostics Result Diagram: 11/09/16 0505 11/09/16 0505 Microbiology culture in process X-Rays, CTs and MRIs . CT BRAIN WITHOUT CONTRAST IMPRESSION: Chronic left frontal and right parietal encephalomalacia in addition to age- related involutional changes. No acute intracranial process. CT CHEST, ABDOMEN AND PELVIS WITHOUT CONTRAST IMPRESSION: 1. Low-density bilateral pleural effusions and basilar consolidation suspicious for pneumonia. 2. Small amount of intra-abdominal ascites. No pneumoperitoneum. 3. Normal appendix. 4. Extensive aortic atherosclerosis and coronary artery calcification. Findings suspicious for high-grade infrarenal abdominal aortic stenosis. However, lack of intravenous contrast limits evaluation. 5. Severe centrilobular emphysema. X-RAY ABDOMEN, ONE VIEW IMPRESSION: No acute intra-abdominal findings. X-RAY CHEST ONE VIEW, PORTABLE 11/04/2016 IMPRESSION: Mild increased retrocardiac left basilar opacities possibly low- grade aspiration/atelectasis versus developing pneumonia. Please correlate clinically. Background chronic interstitial disease as before X-RAY CHEST ONE VIEW, PORTABLE 11/05/2016 IMPRESSION: 1. Tubes and lines as above. 2. Left basilar radiopacity. Differential considerations include aspiration, atelectasis, and infection. X-RAY CHEST ONE VIEW, PORTABLE 11/06/2016 IMPRESSION: 1. Support lines and tubes unchanged from prior exam. 2. Pulmonary edema and/or bibasilar pneumonia 12-lead ECG ECG Interpretation: Sinus rhythm rate 60 Prolonged CO interval Time: 21:40 Interpreted by: ED physician Normal ECG Interpretation: No acute ischemic changes Cardiac Echo Impressions Echocardiogram Report Interpretation Summary This is a limited echocardiogram ordered. The left ventricular cavity is small. There is mild-moderate concentric left ventricular hypertrophy. The ejection fraction is estimated to be 60-65%. Assessment of diastolic parameters indicates normal left ventricular diastolic function and normal filling pressures. The right ventricle grossly appears normal in size with probable normal systolic function. There is moderate to severe mitral annular calcification. There is a porcine aortic valve. The aortic valve is not well visualized. No other echocardiographic abnormalities seen. Plan Impression Impression #1 acute lower necrosis #2 GERD-induced acute kidney injury secondary to acetaminophen #3 and intra-abdominal hypertension Recommendations #1 surgery is being consulted for further evaluation of his increased intra-abdominal pressure. We will obtain is also imaging study to further evaluate this. The meantime I will go ahead and dialyze him today for 4 hours on a revalclear dialyzer, 4k, 1000 heparin, 37 bicarbonate, 2-3 l fluid removal. Shawn Capps DO Nov 09, 2016 09:16
[2016-11-09] MEDS: Vasopressin Inj 20 UNIT in 0.9% Sodium Chloride 100 ML IV SCH ×2 (09:36→20:43)
--- NOTE | 2016-11-09 09:49 | PCM.PNMED ---
Subjective Date of Service Nov 09, 2016 Subjective Pulmonology consult Progress Note: Attending Dr. Peterson. Requesting provider Dr. Oliver. Reason for consult septic shock Mr. Marrufo is a 85 year old gentleman medical history of CAD (on Brilinta - antiplatelet therapy), HTN, NIDDM and chronic back pain presented to the ED secondary to generalized weakness 2 days. Per patient's patient had been having a steady decline and activity level and ability to ambulate for the last few days (which she initially attributed to his chronic back pain) and culminated on 11/04/2016 with the inability to stand by himself and shortness of breath with lightheadedness. Leading up to hospital admission patient was reportedly seen by primary care provider diagnosed with pneumonia given an outpatient regimen of antibiotics possibly penicillin per . He had had a productive cough with peralta sputum though no reported fevers or other symptoms. He had also been taking increasing amounts of Tylenol for his chronic back pain approximately 1 g every 4 hours. Overnight: Pt had an increase in his ectopic beats. Mg and Ca were repleted after HD. He was reported to be Hypotensive and Levophed was titrated up. Ventilator setting were changed secondary to an increase in CO2 s/p dialysis. RR increased from 16 to 18. Blood sugars once again became low requiring D10 administration. He also regurgitated his tube feed "estrada fluid". Tube feed stopped then reduced to trickle. Pt received Dialysis yesterday and tolerated it well, a little over 2 liters was taken off. Exam Vital Signs Vital Sign - Last Date Time Temp Pulse Resp B/P Pulse Ox O2 Delivery O2 Flow Rate FiO2 11/09/16 07:51 35.9 63 18 112/43 98 Mechanical Ventilator 60 11/04/16 23:25 6 Intake and Output 11/08/16 11/08/16 11/09/16 Cumulative From/Thru 15:00 23:00 07:00 11/04/16 20:34 - 11/09/16 05:42 Intake Total 1164 ml 1382 ml 97322 ml Output Total 2145 ml 105 ml 6800 ml Balance -981 ml 1277 ml 69415 ml Intake Oral 0 ml IV Total 1164 ml 1198 ml 95268 ml Tube Feeding 154 ml 245 ml Packed Cells 1029 ml Tube Irrigant 30 ml 120 ml Output Urine Total 45 ml 5 ml 100 ml Gastric Drainage Total 200 ml 100 ml 900 ml Ultrafiltrate 1900 ml 5800 ml # Bowel Movements 0 0 7 Exam General: Patient intubated and sedated. HEENT: PERRL Anicteric sclerae, pale conjunctivae. Endotracheal tube in place. Neck:. No jugular venous distension. Central line in place right IJ Cardiovascular: Regular rate. No murmurs appreciated. Irregular rhythm with occasional skipped beats. Pulmonary: Patient ventilated, good air movement. Inspiratory and expiratory crackles. Abdomen: Soft, distended, firm in LUQ and LUQ. Extremities: Pretibial pitting edema. Right big toe amputation. Edema in arms Bilaterally Neurological: Pt sedated Ventilator settings: Tidal volume 400. Respiratory rate 18. FiO2 0.6. PEEP 8. ABG: pH 7.39, pCO2 45.8, pO2 87.4, HCO3 27.7. IV drips and Sedatives: Levophed 0.04 mcg/kg/hr, Propofol 25mcg/kg/hr, Fentanyl 75/mcg/kg/hr IV lines: Left Arterial line, right central IJ line, Left AC line. Right forearm line. I&O: last 24 hrs; in + 1382, out - 105, total + 1277. Total to date; in + 72829 , out - 6600, total + 11322 IVs and Medications Medications Reviewed: Medications were reviewed in detail Lab and Diagnostics Result Diagram: 11/09/16 0505 11/09/16 0505 Microbiology culture in process X-Rays, CTs and MRIs . CT BRAIN WITHOUT CONTRAST IMPRESSION: Chronic left frontal and right parietal encephalomalacia in addition to age- related involutional changes. No acute intracranial process. CT CHEST, ABDOMEN AND PELVIS WITHOUT CONTRAST IMPRESSION: 1. Low-density bilateral pleural effusions and basilar consolidation suspicious for pneumonia. 2. Small amount of intra-abdominal ascites. No pneumoperitoneum. 3. Normal appendix. 4. Extensive aortic atherosclerosis and coronary artery calcification. Findings suspicious for high-grade infrarenal abdominal aortic stenosis. However, lack of intravenous contrast limits evaluation. 5. Severe centrilobular emphysema. X-RAY ABDOMEN, ONE VIEW IMPRESSION: No acute intra-abdominal findings. X-RAY CHEST ONE VIEW, PORTABLE 11/04/2016 IMPRESSION: Mild increased retrocardiac left basilar opacities possibly low- grade aspiration/atelectasis versus developing pneumonia. Please correlate clinically. Background chronic interstitial disease as before X-RAY CHEST ONE VIEW, PORTABLE 11/05/2016 IMPRESSION: 1. Tubes and lines as above. 2. Left basilar radiopacity. Differential considerations include aspiration, atelectasis, and infection. X-RAY CHEST ONE VIEW, PORTABLE 11/06/2016 IMPRESSION: 1. Support lines and tubes unchanged from prior exam. 2. Pulmonary edema and/or bibasilar pneumonia 12-lead ECG ECG Interpretation: Sinus rhythm rate 60 Prolonged NC interval Time: 21:40 Interpreted by: ED physician Normal ECG Interpretation: No acute ischemic changes Cardiac Echo Impressions Echocardiogram Report Interpretation Summary This is a limited echocardiogram ordered. The left ventricular cavity is small. There is mild-moderate concentric left ventricular hypertrophy. The ejection fraction is estimated to be 60-65%. Assessment of diastolic parameters indicates normal left ventricular diastolic function and normal filling pressures. The right ventricle grossly appears normal in size with probable normal systolic function. There is moderate to severe mitral annular calcification. There is a porcine aortic valve. The aortic valve is not well visualized. No other echocardiographic abnormalities seen. Assessment & Plan 85 year old male with PMH of CAD, HTN, CAD (on Brilinta anticoagulation) currently being treated for for septic shock with possible underlying pneumonia , GI Bleed, renal failure. Hospital day 6, ventilator day 5. 1. Septic Shock. Present on admission. Ongoing. Pt continues to require blood pressure support. Blood pressures are improving though diastolic remains low. Possible sources include pneumonia. HR has improved and remains mostly in the 60 's. - H&H remains stable. 3 units PRBC received initially, has not required additional infusions. - Pt positive 13,000 ml of fluid. Currently on 80 ml/hr NS - Nor epi 0.04 mcg/kg/min - Vasopressin D/C - Procalcitonin continues to trend down 3.46 from a peak of 9.4 - Remains A-febrile with resolved leukocytosis. - Blood cultures negative x 2 - Vigileo in place 2. Hypercarbic Respiratory failure, not present on admission. - Intubated for airway protection and #1. Sedated with propofol & fentanyl - RR increased from 16 to 18 overnight secondary to rising CO2 levels - Vent settings currently FiO2 0.6, TV 400, PEEP 8, RR 18 - Lasst ABG's pH 7.39, pCO2 44.8, pO2 87.4, HCO3 27.7 - Duonebs scheduled Q4 3. Pneumonia, present on admission. Ongoing. CT suspicious for pneumonia. PCR positive for Coronovirus, sputum grew Pseudomonas - WBC peak of 13.1, currently 10 - Procalcitonin as above - ETT initially placed for airway protection. - ABX coverage per ID - ID following, appreciate their recommendations 4. Renal failure (acute on chronic), present on admission. Ongoing. Pt denies and NSAID use aside from ASA. Pt has Hx of elevated Cr ~ 1.7 last hospital admit 05/2016. CT showed decompressed bladder and no hydronephrosis or nephrolithiasis - Cr on admit 7.45, continues to trend down 4 s/p HD x 3. - Daily Dialysis continues, total of 6,600 taken off. Remains anuric. - Mcmillan cath in place - NS 80/hr - Nephrology following, continue dialysis per their recs. 5. Emphysema. Present on admission. CT showed severe centrilobular emphysema. - Duonebs Q4 6. Transaminitis, present on admission. Ongoing Pt reported was taking up to 6 grams of T[address] daily. CT showed subcentimeter gallstones or sludge within the gallbladder fundus and cystic duct. The gallbladder wall is not well characterized - Acetaminophen 27.1 on admit - AST/ALT continue to improve 52/66 from peak of 234/199 - Total Bili 0.5 - Acetylcysteine/Dextrose course complete 7. GI Bleed. Present on admission. Ongoing. EGD showed no evidence of bleed, possibility of a Dieulafoy's lesion - Stool guaiac positive. - Held home meds Brilinta and ASA - H&H remains stable, after receiving 3 units of PRBC's - Lactic acid elevated on admit 3.9, repeat values normal, continue to monitor - Protonix drip D/C per GI. Change to BID - GI following 8. NIDDM. - Currently on sliding scale - Glucose levels remain labile requiring D5 administration 9. Elevated troponin, acute, present on admission. In the setting of Renal failure. - History of CAD, on dual antiplatelet therapy - Initial troponin 0.134, repeat 0.143, 0.102 - Telemetry has shown some PVC's - Echo EF 60%-65%. LVH. - ECG continues to show prolonged NC interval CXR today showed air pocket under the diaphragm, possible due to ileus. Additional imaging XR KUB ordered showing air in stomach. NG suction ordered. Intraabdominal pressure 18 reduced to 12 s/p suction. Repeat imaging tomorrow, consult with Nephrology regarding additional CT imaging prior to dialysis. . GI Prophylaxis: Proton Pump Inhibitor VTE Prophylaxis: SCDs VTE Mechanical Devices: Intermittant Pneumatic CD Resuscitation Status: CPR: Attempt Resuscitation Attending Statement The patient was seen and examined together with Dr. Monroe on 11/10/2016 and I agree with the history, exam and plan as outlined in the note above. BRANDEN MONROE DO Nov 09, 2016 09:49 Sánchez Peterson MD Nov 19, 2016 10:53 - CT showed decompressed bladder and no hydronephrosis or nephrolithiasis - Fluids per nephrology - Nephrology following, appreciate their input Hypercapnic respiratory failure, not present on admission. resolved - Intubated and Sedated with propofol - ABG's show resolution of hypercapnia - Pt also on Duonebs Q4 Emphysema. Present on admission - CT showed severe centrilobular emphysema. - Bronchodilators Transaminitis, present on admission. resolving - Questionably due to chronic Tylenol overdose vs shock liver - Initial CT ABD showed small amount of intra-abdominal ascites and small amount of hepatosplenic free fluid. - CT showed subcentimeter gallstones or sludge within the gallbladder fundus and cystic duct. - Acetaminophen 27.1 on 11/04/2016 at 21:00hrs - Acetylcysteine/Dextrose course complete GI Bleed. Present on admission. Ongoing. EGD showed no evidence of bleed, possibility of a Dieulafoy's lesion - Held home meds Brilinta and ASA - H&H remains somewhat stable; drop of 2 over the last 48 hours - Protonix BID - GI following NIDDM. - well controlled on sliding scale - Consider drip if Glucose levels maintain elevation Elevated troponin in renal failure, acute, present on admission. - History of CAD, on dual antiplatelet therapy - Trend for resolution; next lab tomorrow Disposition: The patient's prognosis is extremely guarded after discussion with primary care doctor. Palliative care was involved in discussions today with . At the moment sounds as if the patient is a full code but does not wish to go to a SNF. GI Prophylaxis: Proton Pump Inhibitor VTE Prophylaxis: SCDs VTE Mechanical Devices: Intermittant Pneumatic CD Resuscitation Status: CPR: Attempt Resuscitation BRANDEN MONROE DO Nov 09, 2016 09:49
[2016-11-09] MEDS: 23.4% Sodium Chloride Inj 154 MEQ in Dextrose 10% 1,000 ML IV SCH (12:35)
--- NOTE | 2016-11-09 12:38 | PCM.PNPALL ---
Date of Service Nov 09, 2016 Date of Hospital Admission: Nov 04, 2016 at 22:13 Date of Palliative Consult: Nov 08, 2016 Palliative Care Recommendation This is an 85-year-old, was brought to the hospital for severe malaise. Initially he was found to have melenic stool but labs showed that he was in adam renal failure with a sodium of 133, potassium of 6.3, chloride of 96, bicarb 13, BUN of 109, creatinine of 7.45. AST 234, ALT 183. Troponin 0.134. After fluid resuscitation, his potassium came down to 4.8, BUN of 98, creatinine of 6.12. He has needed vent support and daily dialysis during this hospitalization Summary of palliative recommendations: -Symptom management (Pain/other) Goals of care at this point are to do everything possible in support.-This continues to be the family's request as this was what the patient has always expressed as he understands it. The family is assured that all available measures ARE being used. His family also understands that if he deteriorates there is little more that can be done. We did not specifically discuss the role of cardiopulmonary resuscitation in his fragile condition--as it stands he remains full code. More difficult for the at this point is if he is profoundly debilitated how she will manage. She does verbalize awareness that he will likely not return home "ever again". She requires consistency of communication-see discussion. Understanding that any positive information may cause her to be overly hopeful, and then she feels confused when she is reminded of ongoing uncertainty about his prognosis. --Today we were able to discuss this with her son, Galo, who confirms that her "black and white" view makes it hard for her to tolerate uncertainty. He will try to support her. --The son also informs us that she has been very "dependent", that she does not drive or do any bills. She feels "lost" without him and is staying at the hospital for extended periods, believing that he would want her to be here as his advocate. Palliative Care will continue to be available to her family and family regarding severity of illness. Galo notes appreciation for that and will continue to call for updates and encourage her to take care of herself. Will also relate information to other son in [place]. -DPOA/Advanced Directives/POLST- Continues full code. no paperwork has been completed -Family/emotional support-his is remarkably isolated. Encouraged her to reach out to her son's -Spiritual support-she is quite adamantly not interested in any outside spiritual support Additional Medical Diagnoses with primary management by Hospitalist team include : Sepsis syndrome Acute renal failure on chronic renal failure Extensive vascular disease Respiratory failure on top of severe emphysema GI bleed with antral erosion- now off antiplatelets Diabetes Problems: End of Life Preferences FULL CODE Goals of Care keep fighting to get through this. Make decisions based on best known wishes.and best interest if pt unable to participate. Disposition TBD Resuscitation Status Resuscitation Status: CPR: Attempt Resuscitation POLST Updates/Changes Previous POLST?: No Artificially Admin Nutrition: Long-Term Nutrition by Tube Feeding Palliative Subjective Palliative Care Daily Responde: Family/Proxy, Nurse, Other Brief History 85 yr old man admitted for melenic stool, found to be in renal failure, now vent and dialysis dependent in ICU. Per nephrology consult on 11/05/16: "This is an 85-year-old, male with significant past medical history of coronary artery disease, bioprosthetic aortic valve replacement, type 2 diabetes, hypertension, chronic back pain who presented to the hospital due to progressive weakness. Patient now is intubated, sedated. I have gathered history from his and medical record. Apparently, over the past week, the patient started having respiratory symptoms including cough, sore throat. The patient was seen by his primary care physician and was given antibiotics, questionable Augmentin. Patient started taking it on night. The patient also has had worsening chronic back pain, in which he has been on Tylenol at least 1 g every 4 hours over the past week. Two days prior to the admission, the patient's mental status has been declining. He has poor oral intake. Yesterday his decided to bring him to the emergency department because of severe malaise. Initial blood pressure was 64/38. O2 sat of 90% on room air. The patient was found to have adam melena. He received IV Protonix injection, 3 L of normal saline bolus, octreotide and Protonix drips. The patient then transferred to the CCU. The patient later on became decompensated and required intubation. His initial BMP showed sodium of 133, potassium of 6.3, chloride of 96, bicarb 13, BUN of 109, creatinine of 7.45. AST 234, ALT 183. Troponin 0.134. After fluid resuscitation, his potassium came down to 4.8, BUN of 98, creatinine of 6.12. Overnight, the patient has not produced any urine..." Patient/Family Concerns trying to respect the patient wish that we "do everything" and her growing sense of his severe illness, the knowledge that he will likely not return home and her sense that he would not want to remain prison on vent. Subjective Pt on vent, unable to participate. Palliative Performance Scale PPS Patient Status: Baseline PPS Ambulation: Mainly Sit/Lie PPS Activity: Unable to do most activity PPS Self-Care: Considerable assistance required PPS Intake: Normal or reduced PPS Conscious Level: Full or confusion Performace Scale: 50% ( now more acurately describes very limited function prior to hospital) ADLs ADL Patient Status: Baseline ADL Ambulation: Mainly Sit/Lie ADL Dressing: Considerable assistance required ADL Feeding: Occasional assistance necessary ADL Hygene/bathing: Considerable assistance required ADL Transfers: Considerable assistance required Non-Responsive Patient Symptom Pain (current): Present, Not Requiring Intervention Pain (minimum): Present, Not Requiring Intervention Pain (maximum): Present, Not Requiring Intervention Tiredness/Fatigue: Present, Not Requiring Intervention Anxiety: Present, Requires Intervention (RN reports anxiety/restlessness when propofol weaned) Objective Findings Exam Vital Sign - Last Date Time Temp Pulse Resp B/P Pulse Ox O2 Delivery O2 Flow Rate FiO2 11/09/16 07:51 35.9 63 18 112/43 98 Mechanical Ventilator 60 11/04/16 23:25 6 Intake and Output 11/08/16 11/08/16 11/09/16 Cumulative From/Thru 15:00 23:00 07:00 11/04/16 20:34 - 11/09/16 05:42 Intake Total 1164 ml 1382 ml 87317 ml Output Total 2145 ml 105 ml 6800 ml Balance -981 ml 1277 ml 69791 ml Intake Oral 0 ml IV Total 1164 ml 1198 ml 32824 ml Tube Feeding 154 ml 245 ml Packed Cells 1029 ml Tube Irrigant 30 ml 120 ml Output Urine Total 45 ml 5 ml 100 ml Gastric Drainage Total 200 ml 100 ml 900 ml Ultrafiltrate 1900 ml 5800 ml # Bowel Movements 0 0 7 General: Unresponsive, Chemically sedated HEENT: Atraumatic, Other (reportedly very hard of hearing as per his ) Lab/Diagnostics Lab and Imaging results reviewed in detail in EMR. Patient/Family Conference Members Present Family Members Present Zena, son Galo. Medical Team Members Present? Liat ORDOÑEZ Discussion/Goals of Care Discussion FAMILY UNDERSTANDING OF DISEASE: [ is intermittently upset about his status , tends to emphasize whatever she hears as getting better, or as being dire. Son understands the nature of the uncertainty he faces, is helping mom cope. DISEASE PROGRESSION/EVIDENCE OF DECLINE: [ Pt had history of decline that took place over weeks including very little fluid intake which likely led to the degree of renal failure he was in. Agree that patient is slowly and slightly improving but doubtful that he will return to anything close to baseline. ] SYMPTOM BURDEN: [sedated, intubated, no distress noted] GOALS: [has conflicting goals per family of "wanting everything" but also " never wanting to go to a long-term". Family not very sophisticated about the implications of different treatment levels.] HOPES/WORRIES: [ is trying to uphold his wishes, but very torn about him needing SNF even if he improves to leave hospital. ] Time spent Total time 60 minutes; >50% face to face with patient and/or family, providing counselling regarding plans and recommendations, and in care coordination with his/her medical teams. I also spent an [id number] minutes counseling for advanced care planning with the patient/the patients family/the surrogate decision maker. copies to: Juan Hollis MD, Sharmon M. ARNP Nov 09, 2016 12:05 his/her medical teams. I also spent an additional [ ] minutes counseling for advanced care planning with the patient/the patients family/the surrogate decision maker. Liat Palacios Nov 09, 2016 12:05
[2016-11-09] MEDS: fentaNYL 2,500 mCg/250 mL 2,500 MCG in IV Premix 1 EACH IV SCH (12:44)
--- NOTE | 2016-11-09 13:08 | DRSVH ---
PROCEDURE: X-RAY KUB ([id number]) INDICATIONS: ileus TECHNIQUE: One view of the abdomen acquired. COMPARISON: [facility], CR, XR CHEST 1VW (PORTABLE), 11/09/2016, 5:15. FINDINGS: Surgical changes and devices: Nasogastric tube present tip traversing the GE junction. Bowel: Gas noted within the stomach otherwise a paucity gas seen throughout the bowel. Soft tissues: No suspicious abdominal calcifications. Visualized solid organ contours appear normal in size. Bibasilar pleural effusions and airspace opacities redemonstrated. Bones: No suspicious bony lesions. IMPRESSION: 1. Bibasilar airspace opacities and pleural effusions are demonstrated. 2. Paucity of gas noted throughout the bowel which is nonspecific but could be related to small bowel obstruction. Correlate clinically. Dictated by: Glynn ERVIN Interpreted: Mary Villanueva MD on 11/09/2016 at 13:05 Transcribed by: AURELIANO on 11/09/2016 at 13:08 Approved by: Mary Villanueva M.D. on 11/09/2016 at 21:24
--- NOTE | 2016-11-09 13:32 | NUR ---
NUTRITION FOLLOW-UP Assess: 85 YO M admitted to CCU for hypovolemic shock, GI bleed, PNA, and renal failure. Pt remains intubated. He has required dialysis for the last three days. Overnight nursing had to suction TF from pt's throat and pt found to have increased GRV, TF decreased to trophic feedings once again. Concern for possible ileus, surgery being consulted. TF on hold for now. PMHX: Anticoagulated on Brilinta, chronic back pain, type 2 DM, cardiomyopathy, coronary disease, HTN, PVD, paralyzed vocal cord, GERD. DIET: NPO. LABS: BUN 50, Cr 5.01, Glu 54, Ca 6.7, Phos 5.2, AST 75, ALT 87, Albumin 2.8 MEDICATIONS: Reviewed. Insulin, Pressor, Propofol @ 13.1 ml/hr (346 kcal/d) GI: 2 BM 11/08 SKIN: No issues noted. WEIGHT: 97.7 kg, BMI 33.7 kg/m2, IBW 67.3 kg Admit Wt: 87.3 kg ESTIMATED NEEDS: VENT/BMI/DIALYSIS (admit wt) Calories: 3390-6495 kcal/day (22-25 kcal/kg BW) Protein: 81-135 g/day (1.2-2.0 g/kg IBW) NUTRITION DIAGNOSIS: 1) Inadequate oral intake related to decreased ability to consume sufficient energy as evidenced by NPO/Vent status.---PERSISTS INTERVENTION: 1) When medically appropriate, recommend reinitiating Nepro @ 10 ml/hr. Once tolerance established, recommend advancing q 6 hrs to goal rate of 46 ml/hr to provide 1822 kcal/d (2186 kcal/d w/ propofol), 82 g/d protein, and 915 ml/d fluid, meeting 100% of est needs. 2) Adjust rate based on Propofol. 3) Adjust formula based on pt's need for dialysis. MONITOR/EVALUATE: NPO/Vent status, GI, nutrition support, labs, nutrition status. Follow per high nutrition risk guidelines.
[2016-11-09] MEDS ORDERED: Albumin 25% 100 ML IV ONE (14:10)
--- NOTE | 2016-11-09 14:56 | NUR ---
Palliative Care ENDOSCOPE TECHNICIAN Visit11/09/1713:30 D: This copy writer visited with pt.'s , Zena, to provide psycho-social support around the stress she is experiencing due to pt.'s critical illness. Pt. remains vented and sedated, and it is unclear at this time if he will survive the acute event. Zena shared that she feels responsible for making decisions, but that she doesn't want to be 'blamed by the family' if a decision needs to be made to withdraw life support. Zena also noted she has not been able to rest much since pt. was hospitalized on 11/04/16. This copy writer encouraged Zena to try to take time away from [facility] to rest, and she agreed she should do this but worries something bad might happen if she is not here. Conversation continued with Zena sharing about pt.'s experience fighting in the [place] War, and also about the good marriage they have--she notes they have been together for over 50 years. Zena was tearful at times as she talked about how much admiration she has for pt., and also about how her sons at times do not seem respect her as pt.'s primary decision maker. This copy writer asked Zena if she could visit again tomorrow and Zena agreed. A: Pt. is critically ill and prognosis is guarded. is struggling with the realities of pt.'s condition, and also with needing to make decisions about his treatment in the coming days. P: Palliative Care to continue providing support to family while pt. remains at [facility]. Betsy Carpio, ENDOSCOPE TECHNICIAN, [facility] Palliative Care Services
--- NOTE | 2016-11-09 16:01 | CONS ---
[address] [address] CONSULTATION REPORT PATIENT: YVONNE CANTOR : 1930 MR#: [id number] ADMIT: 11/04/2016 JOB ID: [id number] DATE OF SERVICE: 11/09/2016 SURGICAL CONSULTATION: IDENTIFICATION/CHIEF COMPLAINT: Dr. Capps and Dr. Lyle asked me to consult on this 85-year-old man regarding possible impending abdominal compartment syndrome. HISTORY OF PRESENT ILLNESS: The patient was admitted on November 05 with a GI bleed and ended up having early intubation. He was found to have a hematocrit of 22 on admission and upper endoscopy demonstrates some old blood in the second and third portion of the duodenum but no source of the bleeding. He has been followed by GI, ID and nephrology and there are concerns that his abdominal compartment pressures might be nearing the point that he would benefit from abdominal decompression. This morning his abdominal girth seemed to be increasing and his intra-abdominal pressure measures 18. PAST MEDICAL HISTORY: 1. Coronary artery disease. 2. Status post CVA. 3. Hypertension. 4. Iik-pnesvvk-enssiesmm diabetes mellitus. 5. Chronic back pain on acetaminophen. 6. Hypertension. 7. Peripheral vascular disease. 8. History of paralyzed vocal cord. 9. History of GERD. 10. Reported cardiomyopathy. MEDICATIONS: See admission history and physical, the current medication list while in the hospital. ALLERGIES: CLOPIDOGREL. SOCIAL HISTORY: Ex-smoker, no daily alcohol. PHYSICAL EXAMINATION: The patient is intubated, in the ICU sedated. His abdomen is a bit distended, quiet bowel tones, central tympany. LABORATORIES: His white count is normal at 10. His hematocrit is 27. Platelet count is 83. Chemistries are more or less normal. BUN and creatinine are elevated. Liver function tests demonstrate mild elevation of transaminases to 52 and 66. We do not have a lipase. IMAGING: I reviewed a CT of the abdomen and pelvis from November 05 and would note that he has a tremendous amount of atherosclerotic calcification burden in his abdominal aorta. IMPRESSION AND PLAN: It remains unclear as to what was the precipitating event that brought his hematocrit down to 22 and I will discuss with GI as to whether further investigation is planned. I do think his abdominal compartment pressures are approaching relatively high number and some consideration should be made if they continue to climb to abdominal decompression. I had a preliminary discussion with his regarding this. According to the chart, she had previously expressed concerns that people were pushing her towards withdrawing support, and when I explained to her that I was seeing him to discuss possible surgery, she expressed her concerns that he would not tolerate anesthesia. General Surgery will continue to follow closely.
--- NOTE | 2016-11-09 16:12 | PCM.PNMED ---
Subjective Date of Service Nov 09, 2016 Subjective Hypotensive couple hours after dialysis. Ventilator changes made overnight with respiratory rate increasing from 16 and 18. Review of x-ray this morning revealed possible ileus and patient is having a large amount of residuals. Exam Vital Signs Vital Sign - Last Date Time Temp Pulse Resp B/P Pulse Ox O2 Delivery O2 Flow Rate FiO2 11/09/16 12:30 35.9 60 18 132/48 96 Mechanical Ventilator 60 11/04/16 23:25 6 Intake and Output 11/08/16 11/08/16 11/09/16 Cumulative From/Thru 14:59 22:59 06:59 11/04/16 20:34 - 11/09/16 05:42 Intake Total 1164 ml 1382 ml 39976 ml Output Total 2145 ml 105 ml 6800 ml Balance -981 ml 1277 ml 77457 ml Intake Oral 0 ml IV Total 1164 ml 1198 ml 64599 ml Tube Feeding 154 ml 245 ml Packed Cells 1029 ml Tube Irrigant 30 ml 120 ml Output Urine Total 45 ml 5 ml 100 ml Gastric Drainage Total 200 ml 100 ml 900 ml Ultrafiltrate 1900 ml 5800 ml # Bowel Movements 0 0 7 Exam General: Intubated and sedated Cardiovascular: Bradycardia is not seen today; difficult to auscultate regular rate Pulmonary: Lungs are somewhat coarse rhonchus with crackles Abdomen: Abdominal pressure to 18; mildly firm on palpation Extremities: Edema present Skin: No rashes Neurological: Still sedated IVs and Medications Medications Reviewed: Medications were reviewed in detail Lab and Diagnostics Result Diagram: 11/09/16 0505 11/09/16 0505 Microbiology culture in process X-Rays, CTs and MRIs . CT BRAIN WITHOUT CONTRAST IMPRESSION: Chronic left frontal and right parietal encephalomalacia in addition to age- related involutional changes. No acute intracranial process. CT CHEST, ABDOMEN AND PELVIS WITHOUT CONTRAST IMPRESSION: 1. Low-density bilateral pleural effusions and basilar consolidation suspicious for pneumonia. 2. Small amount of intra-abdominal ascites. No pneumoperitoneum. 3. Normal appendix. 4. Extensive aortic atherosclerosis and coronary artery calcification. Findings suspicious for high-grade infrarenal abdominal aortic stenosis. However, lack of intravenous contrast limits evaluation. 5. Severe centrilobular emphysema. X-RAY ABDOMEN, ONE VIEW IMPRESSION: No acute intra-abdominal findings. X-RAY CHEST ONE VIEW, PORTABLE 11/04/2016 IMPRESSION: Mild increased retrocardiac left basilar opacities possibly low- grade aspiration/atelectasis versus developing pneumonia. Please correlate clinically. Background chronic interstitial disease as before X-RAY CHEST ONE VIEW, PORTABLE 11/05/2016 IMPRESSION: 1. Tubes and lines as above. 2. Left basilar radiopacity. Differential considerations include aspiration, atelectasis, and infection. X-RAY CHEST ONE VIEW, PORTABLE 11/06/2016 IMPRESSION: 1. Support lines and tubes unchanged from prior exam. 2. Pulmonary edema and/or bibasilar pneumonia 12-lead ECG ECG Interpretation: Sinus rhythm rate 60 Prolonged WV interval Time: 21:40 Interpreted by: ED physician Normal ECG Interpretation: No acute ischemic changes Cardiac Echo Impressions Echocardiogram Report Interpretation Summary This is a limited echocardiogram ordered. The left ventricular cavity is small. There is mild-moderate concentric left ventricular hypertrophy. The ejection fraction is estimated to be 60-65%. Assessment of diastolic parameters indicates normal left ventricular diastolic function and normal filling pressures. The right ventricle grossly appears normal in size with probable normal systolic function. There is moderate to severe mitral annular calcification. There is a porcine aortic valve. The aortic valve is not well visualized. No other echocardiographic abnormalities seen. Assessment & Plan 85 year old male with PMH of CAD, HTN, CAD (on Brilinta anticoagulation) currently being treated for for septic shock with possible underlying pneumonia , GI Bleed, renal failure. Acute hypoxic and hypercarbic respiratory failure; prednisone admission; - Intubated for protection of airway and septic shock - Vent settings per pulmonary team - Multifactorial as below - ABGs daily and when necessary Acute Septic Shock; present on admission; resolving - Patient presented with bradycardia and hypotension and was initially treated for beta marialuisa overdose; blood pressure pattern eventually revealed likely sepsis source of pneumonia - Patient continues on norepinephrine but is mildly improved; initially also required vasopressors - H&H remains stable. 3 units PRBC received initially, has not required additional infusions. - Procalcitonin resolving - Remains A-febrile with resolved leukocytosis. - Blood cultures negative x 2 Possible ileus with high intra-abdominal pressures; ongoing - Patient has large residuals of trophic feeds; pressure was reduced somewhat with NG tube suction - KUB was ordered this morning and showed dilated loops of bowel - CT will be ordered for tomorrow morning before dialysis by ICU team - Surgery was consultative and Dr. Dixon and the patient; note is in chart - If intra-abdominal pressure continues to climb Dr. Plascencia will consider surgery Pneumonia, possible pseudomonas, present on admission. Treatment ongoing - CT suspicious for pneumonia. 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 Ongoing. - Hx of elevated Cr ~ 1.7 last hospital admit 05/2016. CT showed decompressed bladder and no hydronephrosis or nephrolithiasis - Cr on admit 7.45, continues to trend down 4 s/p HD x 3. - Daily Dialysis continues, total of 6,600 taken off. Remains anuric. - Nephrology following, continue dialysis per their recs. Acute Transaminitis, present on admission. Resolving -Patient was taking large amounts of Tylenol, up to 6 times a day; CT did not identify cholelithiasis or cholecystitis - Acetaminophen 27.1 on admit (elevated) - Acetylcysteine/Dextrose course complete GI Bleed. Present on admission. Ongoing. EGD showed no evidence of bleed, possibility of a Dieulafoy's lesion - Stool guaiac positive. - Held home meds Brilinta and ASA - H&H remains stable, after receiving 3 units of PRBC's - Lactic acid elevated on admit 3.9, repeat values normal, continue to monitor - Protonix drip D/C per GI. Change to BID - GI following NIDDM. - Currently on sliding scale - Glucose levels remain labile requiring D5 administration Elevated troponin, acute, present on admission. In the setting of Renal failure. - History of CAD, on dual antiplatelet therapy - Troponin was intermediate and resolving - Echo EF 60%-65%. LVH. Disposition: Patient's prognosis is extremely guarded and palliative had discussions with family about goals of care; patient voiced wishes not to go to SNF, however at this point patient will more likely go to long-term care facility as he becomes more stable, pending evaluation for possible ileus. GI Prophylaxis: Proton Pump Inhibitor VTE Prophylaxis: SCDs VTE Mechanical Devices: Intermittant Pneumatic CD Resuscitation Status: CPR: Attempt Resuscitation Time spent 45 min Attending Statement Patient seen and examined with house staff, agree with all attached documentation. Miguel Ángel Jones DO Nov 09, 2016 16:12 Lj Lyle MD Nov 10, 2016 07:46
--- NOTE | 2016-11-09 16:58 | NUR ---
Dialysis note 4 hr HD tx with 3000ml net UF removed. Albumin 25gm IV given X1. BP closely monitored and UF rate adj. accordingly. See DTR for complete vitals data. Pt tolerated tx well. Catheter dwelled with 1000/1 U Heparin post tx and secured to thigh.
[2016-11-09] MEDS: Cefepime Inj 1,000 MG in Dextrose 5% Minibag Plus 50 ML IV SCH (17:09)
--- NOTE | 2016-11-09 18:03 | NUR ---
HEMODYNAMICS/RESPIRATORY/GI Patient continues to require Levophed at 0.04 mcg/kg/min for BP support, increased to 0.05 mcg/kg/min during dialysis as BPs dropped significantly, but currently back to previous infusion rate. Vent settings not changed from this mornin% FiO2/8 PEEP/18 Rate/400 Vt, tolerating well, no s/s of respiratory distress. TF stopped, as intraabdominal pressures elevated (18) this morning. OGT connected to suction, afternoon intraabdominal pressures lower (12). Patient remains stable at this time on current medications and vent settings. Sedated w/ Propofol and Fentanyl, wakes intermittently, but does become restless when sedation lowered. Will continue to monitor.
[2016-11-10] VITALS (16 sets, daily range): BP systolic 88–138; BP diastolic 37–55; PULSE 62–85; RESP 11–18; O2SAT 94–99
[2016-11-10] MEDS: Albuterol-Ipratropium 3 mL Inhalation Solution NEB SCH ×7 (00:22→23:47)
[2016-11-10] MEDS: Chlorhexidine 0.12% 15 mL Oral Solution MUC_MEMBRM SCH ×6 (00:34→20:21)
[2016-11-10] MEDS: 23.4% Sodium Chloride Inj 154 MEQ in Dextrose 10% 1,000 ML IV SCH (02:00)
[2016-11-10 02:29] LABS: BASOPHILS % (AUTO) 0.1 % (0-3); EOSINOPHILS % (AUTO) 0.9 % (0-5); MONOCYTES % (AUTO) 8.8 % (4-12); Mean Corpuscular Volume 83.2 fL (81-100); NEUTROPHILS % (AUTO) 80.8 % (40-74)
[2016-11-10 02:46] LABS: Platelet Count 81 bil/L (150-400)
[2016-11-10 03:08] LABS: Magnesium 1.9 mg/dL (1.6-2.6); Phosphorus 3.2 mg/dL (2.5-4.9)
[2016-11-10 03:42] LABS: TROPONIN T 0.082 ug/L (0.0-0.011)
--- NOTE | 2016-11-10 05:32 | ABG ---
DateTimeAnalyzed 05:29:00 -_ pH ____7.412 - 7.350 7.450 pCO2 ___41.9__ -mmHg 35.0 45.0 pO2 119 -mmHg 69.0 116 HCO3- ___26.2__ -mmol/L 22.0 26.0 ABE ____1.9__ -mmol/L -2.0 2.0 tHb ____9.2__ -g/dL O2Hb ___96.3__ -% COHb ____1.1__ -% MetHb ____1.2__ -% sO2 ___98.6__ -% 25.0 FIO2 ___21.0__ -% PEEP ____8.0__ -cmH2O Set_RR ___18.0__ -b/min Vt __400.0__ -L Drawn By MD - Date/Time Notified____ 05:32:00 -_ Spontaneous_RR ___18.0__ -b/min Oxygen Device 1 VENTILATOR - Notified By MD - Notified Whom RN J.HERLICKSON - B 760 -mmHg tO2 ___12.6__ -Vol% Lj test N/A -
--- NOTE | 2016-11-10 06:27 | NUR ---
Respiratory, hemodynamics. Vs as noted. Continues ventilated with sats high 90s on 55% fio2 without desaturation. Levophed gtt weaned from 0.04mcg to 0.03mcg/kg/min with drop in MAP to 50s. Blood pressures labile with repositioning and changes in central line positioning with drops to 80s then spikes to 180s. Tele sinus rhythm with hr 60s 1st degree avb and pvcs. Mcmillan cath in place with just 60ml pale uop.
[2016-11-10] MEDS: Norepineph 8,000 mCg/250 mL NS 8,000 MCG in IV Premix 1 EACH IV SCH (06:43)
[2016-11-10] MEDS: Pantoprazole 4 mg/mL 10 mL Inj IVPUSH SCH (07:39)
[2016-11-10] MEDS: levoFLOXacin Inj 500 MG in IV Premix 1 EACH IV SCH (07:44)
[2016-11-10] MEDS: Insulin LISPRO 300 Unit/3 mL Inj SUBQ SCH ×4 (08:00→22:00)
--- NOTE | 2016-11-10 08:55 | PCM.PNSURG ---
Subjective Date of Service: Nov 10, 2016 Visit Information: Reason for Visit Gi Bleed Surgery/Surgery Date Post-Op Day # Date of Admission: Nov 04, 2016 at 22:13 Hospital Day #7 Pain Management: Other (fentanyl infusion. Intermittent IV morphine) Postop Activity: Other (bedrest) Objective Vital Sign- Last 8 Hours Date Time Temp Pulse Resp B/P Pulse Ox O2 Delivery O2 Flow Rate FiO2 11/10/16 04:00 36.5 64 18 118/40 98 Mechanical Ventilator 55 11/10/16 03:56 64 121/40 98 55 Intake and Output- Last 8 Hour 11/10/16 Cumulative From/Thru 07:00 11/04/16 20:34 - 11/10/16 06:12 Intake Total 1383 ml 57459 ml Output Total 210 ml 64157 ml Balance 1173 ml 36594 ml Intake Oral 0 ml IV Total 1383 ml 88444 ml Tube Feeding 283 ml Packed Cells 1029 ml Tube Irrigant 120 ml Output Urine Total 60 ml 208 ml Gastric Drainage Total 150 ml 1260 ml Ultrafiltrate 8800 ml # Bowel Movements 7 General: Other (intubated, ventilated, sedated) Lungs: Clear to Auscultation (in the anterolateral ruiz) Heart: Other (irregular) Abdomen: Soft, Distended, Other (intra-abdominal pressures are less than 10) Catheters: Urethral 2 Way Mcmillan Result Diagram: 11/10/1621911/10/16 022 Assessment & Plan Impression Primary diagnoses: 1. Abdominal distention with gastric dilatation on chest x-ray this morning. No abdominal compartment syndrome with abdominal pressures currently at 10 or less. 2. Respiratory failure 3. Acute septic shock 4. Pneumonia 5. Acute on chronic kidney disease 6. GI bleed Other diagnoses: 1. Coronary artery disease. 2. Status post CVA. 3. Hypertension. 4. Hzl-cyjzfsa-zmwcvuwtl diabetes mellitus, type II. 5. Chronic back pain on acetaminophen. 6. Hypertension. 7. Peripheral vascular disease. 8. History of paralyzed vocal cord. 9. History of GERD. 10 cardiomyopathy. 11. Former cigarette smoker Problems: Plan Surgery will continue to follow this critically ill patient. No intervention at this time. Pain Management: Fentanyl infusion Intermittent IV morphine VTE Prophylaxis: SCDs Resuscitation Status: CPR: Attempt Resuscitation Darwin Richard PA-C Nov 10, 2016 08:55
--- NOTE | 2016-11-10 09:02 | DRSVH ---
PROCEDURE: X-RAY CHEST ONE VIEW, PORTABLE ([id number]) INDICATIONS: Pulm Edema TECHNIQUE: One view of the chest was acquired. COMPARISON: [facility], CR, XR CHEST 1VW (PORTABLE), 11/08/2016, 5:27. [facility], CR, XR CHEST 1VW (PORTABLE), 11/07/2016, 5:23. [facility], CR, XR CHEST 1VW (ANDREW BLE), 11/09/2016, 5:15. FINDINGS: Surgical changes and devices: Stable position of ETT, nasogastric tube and right IJ CVL. Lungs and pleura: Diffuse, widespread bilateral pulmonary interstitial and air space opacities are p resent which is not significantly changed from prior examination. Small pleural effusions. No pneum othorax. Mediastinum: Mediastinal contours appear normal. Heart size is enlarged. Bones and chest wall: No suspicious bony lesions. Overlying soft tissues appear unremarkable. IMPRESSION: Persistent pulmonary edema versus pneumonia. Dictated by: Glynn Martines Sangita Interpreted: Reilly Calderon MD on 11/10/2016 at 9:00 Transcribed by: MARÍA ELENA on 11/10/2016 at 9:02 Approved by: Reilly Calderon M.D. on 11/10/2016 at 11:07
--- NOTE | 2016-11-10 10:40 | NUR ---
Palliative Care [employer] Visit11/10/1709:15AM D: This machine sign writer visited with pt.'s , Zena, after she had learned from one of pt.'s physicians that dialysis may no longer be helpful to pt. aware that this would mean pt. will likely in the coming days. Zena was quite tearful and noted that 'he's my best friend...my only friend.' This machine sign writer and Zena talked about how supportive she has been to pt. over the last week since he was admitted to [facility]. During the time this machine sign writer was present, pt. opened his eyes, but he did not appear responsive when Zena talked to him. Zena said that her two sons will come to [facility] later today to discuss with pt.'s doctors about plan for ongoing care, and to make decisions about whether to continue certain treatment or move towards a comfort care pathway. A: Zena continues to struggle with accepting that pt.'s condition may be terminal. She is very open to talking about her feelings of loss and fear related to pt.'s critical illness. P: Palliative Care to continue following pt. during his hospitalization. Betsy Carpio, [employer], [facility] Palliative Care Services
--- NOTE | 2016-11-10 11:44 | PCM.PNNEPH ---
Subjective Date of Service Nov 10, 2016 Subjective The patient's condition continues to worsen. Despite 4 days of intense hemodialysis patient continues to be anicteric. He is having increased abdominal pressure and variations in his blood pressure. He remains ventilatory dependent. The last 24 hours his blood pressures have been between 100 and 120. Last 24 hours he had 2689 in and 53 mL syrup urine output. This morning his hemoglobin is 9.8, sodium is 135, potassium 3.7, chloride 97, bicarbonate 23, BUN and creatinine were 20 and 3.6 respectively. Exam Vital Signs Vital Sign - Last Date Time Temp Pulse Resp B/P Pulse Ox O2 Delivery O2 Flow Rate FiO2 11/10/16 10:01 64 11/10/16 08:00 Ventilator 11/10/16 08:00 35.4 18 114/38 98 55 11/04/16 23:25 6 Intake and Output 11/09/16 11/09/16 11/10/16 Cumulative From/Thru 15:00 23:00 07:00 11/04/16 20:34 - 11/10/16 06:12 Intake Total 1307 ml 1383 ml 20136 ml Output Total 3258 ml 210 ml 54238 ml Balance -1951 ml 1173 ml 87761 ml Intake Oral 0 ml IV Total 1269 ml 1383 ml 85264 ml Tube Feeding 38 ml 283 ml Packed Cells 1029 ml Tube Irrigant 120 ml Output Urine Total 48 ml 60 ml 208 ml Gastric Drainage Total 210 ml 150 ml 1260 ml Ultrafiltrate 3000 ml 8800 ml # Bowel Movements 0 7 Exam Patient remains sedated and on a ventilator and minimally responsive. His lungs show some scattered rhonchi and there are diminished breath sounds in part due to his body habitus. Heart was irregularly irregular. Abdomen remains distended and quiet. Once again is diffuse tympany noted some semi- firmness. Extremities shows mild generalized edema. Lab and Diagnostics Result Diagram: 11/10/1621911/10/16219 Microbiology culture in process X-Rays, CTs and MRIs . CT BRAIN WITHOUT CONTRAST IMPRESSION: Chronic left frontal and right parietal encephalomalacia in addition to age- related involutional changes. No acute intracranial process. CT CHEST, ABDOMEN AND PELVIS WITHOUT CONTRAST IMPRESSION: 1. Low-density bilateral pleural effusions and basilar consolidation suspicious for pneumonia. 2. Small amount of intra-abdominal ascites. No pneumoperitoneum. 3. Normal appendix. 4. Extensive aortic atherosclerosis and coronary artery calcification. Findings suspicious for high-grade infrarenal abdominal aortic stenosis. However, lack of intravenous contrast limits evaluation. 5. Severe centrilobular emphysema. X-RAY ABDOMEN, ONE VIEW IMPRESSION: No acute intra-abdominal findings. X-RAY CHEST ONE VIEW, PORTABLE 11/04/2016 IMPRESSION: Mild increased retrocardiac left basilar opacities possibly low- grade aspiration/atelectasis versus developing pneumonia. Please correlate clinically. Background chronic interstitial disease as before X-RAY CHEST ONE VIEW, PORTABLE 11/05/2016 IMPRESSION: 1. Tubes and lines as above. 2. Left basilar radiopacity. Differential considerations include aspiration, atelectasis, and infection. X-RAY CHEST ONE VIEW, PORTABLE 11/06/2016 IMPRESSION: 1. Support lines and tubes unchanged from prior exam. 2. Pulmonary edema and/or bibasilar pneumonia 12-lead ECG ECG Interpretation: Sinus rhythm rate 60 Prolonged TN interval Time: 21:40 Interpreted by: ED physician Normal ECG Interpretation: No acute ischemic changes Cardiac Echo Impressions Echocardiogram Report Interpretation Summary This is a limited echocardiogram ordered. The left ventricular cavity is small. There is mild-moderate concentric left ventricular hypertrophy. The ejection fraction is estimated to be 60-65%. Assessment of diastolic parameters indicates normal left ventricular diastolic function and normal filling pressures. The right ventricle grossly appears normal in size with probable normal systolic function. There is moderate to severe mitral annular calcification. There is a porcine aortic valve. The aortic valve is not well visualized. No other echocardiographic abnormalities seen. Plan Impression Impression #1 acute tubular necrosis #2 drug-induced acute kidney injury secondary to acetaminophen No. 3 metabolic acidosis #4 hypertension #5 multisystem organ failure. I had a long an in-depth discussion with the patient's in person in one of the patient's sons over the phone. I feel that in looking at the entire clinical picture including his present illness conditions I do not feel that the outcome is favorable. He has had no improvement after 4 days of intense dialysis and in fact has deteriorated. I reviewed surgeries and appreciate their input concerning his abdominal issues. Today I do not feel that dialysis is indicated. I also spoke to and son that I felt that the condition of the patient is terminal. I will hold dialysis for at least several days and see if in fact his renal function improved which I doubt. I will continue to follow him. Total time 45 minutes. Plan The patient will continue hyperbaric treatments. Will return () for treatment #() Shawn Capps DO Nov 10, 2016 11:43
--- NOTE | 2016-11-10 12:34 | PROG NOTE ---
[address] [address] PROGRESS NOTE PATIENT: YVONNE CANTOR : 1930 MR#: [id number] ADMIT: 11/04/2016 JOB ID: [id number] DATE: 11/10/2016 PULMONARY CRITICAL CARE PROGRESS NOTE: The patient is an 85-year-old man seen for respiratory failure, septic shock, and acute renal failure. The patient was seen and evaluated with resident physician, Dr. Erick Monroe. Please refer to his separate detailed note for additional information. INTERVAL HISTORY: He continues to be anuric. He is on low-dose norepinephrine 0.04 mcg/kg. REVIEW OF SYSTEMS: Unable to obtain. PHYSICAL EXAMINATION: Vital signs reviewed. T-max 36.5, pulse 64, respirations 18, BP 118/40, sats 98% on 55% FiO2 and 5 cm of PEEP. General: Intubated, sedated. Currently not responding to me. Chest: Poor air movement bilaterally and decreased breath sounds at the bases. Heart: Soft systolic murmur left sternal border. Abdomen: Distended, with anasarca in all extremities. LABORATORIES: Reviewed. Electrolytes are within normal limits. Creatinine is down to 3.6 on dialysis. Procalcitonin 2.5 from 3.4. CBC reviewed, without any significant abnormalities. Cultures reviewed and notable for a sputum culture on November 05 with Pseudomonas. Nasal swab November 04 with coronavirus. Blood cultures negative. IMAGING: Chest x-ray reviewed and shows bilateral pleural effusions, layering. No other abnormalities. Arterial blood gas from this morning shows pH of 7.41, pCO2 of 41, pO2 of 119, bicarb of 26. ASSESSMENT: 1. Septic shock. 2. Acute hypoxic respiratory failure. 3. Acute renal failure on dialysis. 4. Volume overload and anasarca. 5. Pseudomonas pneumonia. RECOMMENDATIONS: This 85-year-old man presented to the hospital with septic shock. The only identifiable source seems to be Pseudomonas pneumonia. He has been on appropriate therapy and is currently on cefepime and levofloxacin IV. His vasopressor dose has decreased significantly and he is on norepinephrine at 0.04 mcg/kg. He has been getting hemodialysis for acute renal failure for the last few days and remains completely anuric. Nephrology recommended stopping dialysis as of today because of low likelihood of recovery. From a ventilator standpoint he has had some high-pressure support trials but has not really tolerated a spontaneous breathing trial. On intake and output he is about 10 kg up since admission and has bilateral pleural effusions right greater than left on ultrasound exam at the bedside. I spoke to his and judyon at length at the bedside. The indicated that the patient wanted "everything possible done" but never wanted to go to a long-term again. Given his wishes regarding not wanting to go to a long-term, I explained that he is now out almost a week in the ICU with multiorgan failure and, while there is some improvement in vasopressor requirements, he is still completely dependent on the ventilator and anuric. Under the circumstances, even if we were able to get him off the ventilator with aggressive therapy over the next few days to week, he would still be in no condition to return home. I think, even in the best case scenario, there is no way that he could avoid a long-term after a hospitalization such as this. I offered the patient's and her son the option of continuing aggressive therapy for a couple more days to see if he makes any progress with regard to weaning off the ventilator. The alternative would be transitioning to comfort measures now. Palliative Care has been closely involved with the family and will continue talking to them. The family is going to discuss amongst themselves and get back to us. Of note, the patient's did say that the patient has a biological daughter and siblings that are estranged and have not been in communication for a few years. She does not know how to get in touch with them and does not think that they need to be informed about his illness or potentially his impending . TIME: Critical care time 90 minutes. MTDD
--- NOTE | 2016-11-10 13:45 | PCM.PALLBR ---
Palliative Care Recommendation This is an 85-year-old, was brought to the hospital for severe malaise. Initially he was found to have melenic stool but labs showed that he was in adam renal failure with a sodium of 133, potassium of 6.3, chloride of 96, bicarb 13, BUN of 109, creatinine of 7.45. AST 234, ALT 183. Troponin 0.134. After fluid resuscitation, his potassium came down to 4.8, BUN of 98, creatinine of 6.12. He has needed vent support and daily dialysis during this hospitalization. At this time, no dialysis is scheduled but this remains under consideration. Family is adapting to the idea that his multiple medical problems may be insurmountable. The current plan is to focus on his respiratory status, assessing whether he can be liberated from the ventilator and therefore be able to make his own decision about dialysis. Summary of palliative recommendations: Goals of care: GOC at this point are to do everything possible in support, however the nephrology plan is uncertain about whether dialysis is warranted or offers benefit. While the family has requested that current therapies be aimed at the best possible outcome, they are beginning to accept the possible futility of some measures. His family also understands that if he deteriorates there is little more that can be done. -DPOA/Advanced Directives/POLST- --Today they have agreed that he should be DNR if his heart were to stop but that other interventions will be continued. DNR order with limited interventions in place per Drs. Monroe/Katie. --no paperwork has been completed today, consider POLST if pt stabilizes and appears likely to leave hospital Nephrology has spoken with his and one son that he is not likely to survive this hospitalization; this has caused the family to begin gathering, though he remains on the vent and is not imminently dying. -Symptom management is minimal as he remains sedated, he appears in no distress during periods of waking that are more frequent today. Palliative Care will continue to be available to her family and family regarding severity of illness. -Family/emotional support-his is remarkably isolated except for support of her two sons. He has one dtr and other family who are somewhat estranged; family will decide whether/how to inform them. -Spiritual support-she is quite adamantly not interested in any outside spiritual support Additional Medical Diagnoses with primary management by Hospitalist team include : Sepsis syndrome Acute renal failure on chronic renal failure Extensive vascular disease Respiratory failure on top of severe emphysema GI bleed with antral erosion- now off antiplatelets Diabetes Problems: End of Life Preferences Now wants support through the weekend but no heroics, DNR, will remains intubated until EOL prognosis and plan becomes more clear. Goals of Care Now goals are to maintain support without excalation through the weekend. Make decisions based on best known wishes.and best interest of patient.. Disposition TBD Resuscitation Status Resuscitation Status: DNR/DNI:Do Not Resuscitate/Intubate (DNR but continue other measures) POLST Updates/Changes Previous POLST?: No Antibiotics: Use ABX if can Prolong Life Artificially Admin Nutrition: Long-Term Nutrition by Tube Feeding POLST Discussed with: Spouse/Other . Advanced Care Planning Address: Code status change Total time 50 minutes; >50% face to face with patient and/or family, providing counselling regarding plans and recommendations, and in care coordination with his/her medical teams. I also spent an additional 30 minutes counseling for advanced care planning, end of life care, with the patient/the patients family/the surrogate decision maker. copies to: Juan Hollis MD Palliative Brief Note Date of Service Nov 10, [address] Capps has spoken to and one son about not doing dialysis ongoingly. The ICU team is considering no HD today acceptable, are focusing on determining the level/ extent of his dependence on respiratory support. emotional about potential decline "losing my best friend". Additional time spent with , sons, at bedside with support given for the difficult situation they face. The seems more able to grasp the inevitibility of the patient's poor outcome. She confirms that, while he wanted to make sure they "tried everything", he was also adamant about not ending up in a situation that would require him to live in a "chcf". The states that she promised him she would never let that happen "I am sure he would rather than end up having to be in a chcf". Discussed the options left for care including what it would mean if he were to have a cardiac insult needing CPR. Family at bedside agree that these measures would only worsen his already tenuous condition and would unnecessarily subject him to discomfort. They agree his code status should change to DNR. Liat Palacios Nov 10, 2016 10:46
--- NOTE | 2016-11-10 13:56 | PCM.PNMED ---
Subjective Date of Service Nov 10, 2016 Subjective Pulmonology consult Progress Note: Attending Dr. Peterson. Requesting provider Dr. Oliver. Reason for consult septic shock Mr. Marrufo is a 85 year old gentleman medical history of CAD (on Brilinta - antiplatelet therapy), HTN, NIDDM and chronic back pain presented to the ED secondary to generalized weakness 2 days. Per patient's patient had been having a steady decline and activity level and ability to ambulate for the last few days (which she initially attributed to his chronic back pain) and culminated on 11/04/2016 with the inability to stand by himself and shortness of breath with lightheadedness. Leading up to hospital admission patient was reportedly seen by primary care provider diagnosed with pneumonia given an outpatient regimen of antibiotics possibly penicillin per . He had had a productive cough with peralta sputum though no reported fevers or other symptoms. He had also been taking increasing amounts of Tylenol for his chronic back pain approximately 1 g every 4 hours. Overnight: Levothroid decreased to 0.03 with a decrease in his M AP to the 50s. Remained in first-degree block sinus rhythm heart rate in the 60s with occasional PVCs. Pt received Dialysis yesterday and tolerated it well, a little over 3 liters was taken off. Exam Vital Signs Vital Sign - Last Date Time Temp Pulse Resp B/P Pulse Ox O2 Delivery O2 Flow Rate FiO2 11/10/16 12:04 70 98 55 11/10/16 08:00 Ventilator 11/10/16 08:00 35.4 18 114/38 11/04/16 23:25 6 Intake and Output 11/09/16 11/09/16 11/10/16 Cumulative From/Thru 15:00 23:00 07:00 11/04/16 20:34 - 11/10/16 06:12 Intake Total 1307 ml 1383 ml 20532 ml Output Total 3258 ml 210 ml 14086 ml Balance -1951 ml 1173 ml 43451 ml Intake Oral 0 ml IV Total 1269 ml 1383 ml 78990 ml Tube Feeding 38 ml 283 ml Packed Cells 1029 ml Tube Irrigant 120 ml Output Urine Total 48 ml 60 ml 208 ml Gastric Drainage Total 210 ml 150 ml 1260 ml Ultrafiltrate 3000 ml 8800 ml # Bowel Movements 0 7 Exam General: Patient intubated and sedated. Has become more arousable as sedation is titrated down, opening eyes spontaneously HEENT: PERRL Anicteric sclerae, pale conjunctivae. Endotracheal tube in place. Neck:. No jugular venous distension. Central line in place right IJ Cardiovascular: Regular rate. No murmurs appreciated. Irregular rhythm with occasional skipped beats. Pulmonary: Patient ventilated, good air movement. Inspiratory and expiratory crackles. Abdomen: Soft, distended. Extremities: Pretibial pitting edema. Right big toe amputation. Edema in arms Bilaterally Neurological: Pt sedated Ventilator settings: Tidal volume 400. Respiratory rate 18. FiO2 0.55. PEEP 8. ABG: pH 7.41, pCO2 41.9, pO2 119, HCO3 26.2. IV drips and Sedatives: Levophed 0.04 mcg/kg/hr, Propofol 10mcg/kg/hr, Fentanyl 75/mcg/kg/hr IV lines: Left Arterial line, right central IJ line, Left AC line. Right forearm line. I&O: last 24 hrs; in + 2689, out - 3363, total -674. Total to date; in + 28222 , out - 29013, total + 20488 IVs and Medications Medications Reviewed: Medications were reviewed in detail Lab and Diagnostics Result Diagram: 11/10/1621911/10/16219 Microbiology culture in process X-Rays, CTs and MRIs . CT BRAIN WITHOUT CONTRAST IMPRESSION: Chronic left frontal and right parietal encephalomalacia in addition to age- related involutional changes. No acute intracranial process. CT CHEST, ABDOMEN AND PELVIS WITHOUT CONTRAST IMPRESSION: 1. Low-density bilateral pleural effusions and basilar consolidation suspicious for pneumonia. 2. Small amount of intra-abdominal ascites. No pneumoperitoneum. 3. Normal appendix. 4. Extensive aortic atherosclerosis and coronary artery calcification. Findings suspicious for high-grade infrarenal abdominal aortic stenosis. However, lack of intravenous contrast limits evaluation. 5. Severe centrilobular emphysema. X-RAY ABDOMEN, ONE VIEW IMPRESSION: No acute intra-abdominal findings. X-RAY CHEST ONE VIEW, PORTABLE 11/04/2016 IMPRESSION: Mild increased retrocardiac left basilar opacities possibly low- grade aspiration/atelectasis versus developing pneumonia. Please correlate clinically. Background chronic interstitial disease as before X-RAY CHEST ONE VIEW, PORTABLE 11/05/2016 IMPRESSION: 1. Tubes and lines as above. 2. Left basilar radiopacity. Differential considerations include aspiration, atelectasis, and infection. X-RAY CHEST ONE VIEW, PORTABLE 11/06/2016 IMPRESSION: 1. Support lines and tubes unchanged from prior exam. 2. Pulmonary edema and/or bibasilar pneumonia X-RAY CHEST ONE VIEW, PORTABLE 11/10/2016 IMPRESSION: Persistent pulmonary edema versus pneumonia. 12-lead ECG ECG Interpretation: Sinus rhythm rate 60 Prolonged [place] interval Time: 21:40 Interpreted by: ED physician Normal ECG Interpretation: No acute ischemic changes Cardiac Echo Impressions Echocardiogram Report Interpretation Summary This is a limited echocardiogram ordered. The left ventricular cavity is small. There is mild-moderate concentric left ventricular hypertrophy. The ejection fraction is estimated to be 60-65%. Assessment of diastolic parameters indicates normal left ventricular diastolic function and normal filling pressures. The right ventricle grossly appears normal in size with probable normal systolic function. There is moderate to severe mitral annular calcification. There is a porcine aortic valve. The aortic valve is not well visualized. No other echocardiographic abnormalities seen. Assessment & Plan 85 year old male with PMH of CAD, HTN, CAD (on Brilinta anticoagulation) currently being treated for for septic shock with possible underlying pneumonia , GI Bleed, renal failure. Hospital day 7, ventilator day 6. 1. Septic Shock. Present on admission. Ongoing. Pt continues to require blood pressure support. Blood pressures are improving though diastolic remains low. Possible sources include pseudomonas pneumonia. HR has improved and remains mostly in the 60's. - H&H remains stable. 3 units PRBC received initially, has not required additional infusions. - Pt positive ~13,000 ml of fluid. Currently on 80 ml/hr NS - Nor epi 0.04 mcg/kg/min - Vasopressin D/C - Procalcitonin continues to trend down currently 2.53 - Remains A-febrile with resolved leukocytosis. - Blood cultures negative x 2 - Vigileo in place 2. Hypercarbic Respiratory failure, not present on admission. - Intubated for airway protection and #1. Sedated with propofol & fentanyl - Vent settings currently FiO2 0.55, TV 400, PEEP 8, RR 14 - Last ABG's pH 7.412, pCO2 41.9, pO2 119, HCO3 26.2 - Duonebs scheduled Q4 3. Pneumonia, present on admission. Ongoing. CT suspicious for pneumonia. PCR positive for Coronovirus, sputum grew Pseudomonas - WBC peak of 13.1, currently 8 - Procalcitonin as above - ETT initially placed for airway protection. - ABX coverage per ID - ID following, appreciate their recommendations 4. Renal failure (acute on chronic), present on admission. Ongoing. Pt denies and NSAID use aside from ASA. Pt has Hx of elevated Cr ~ 1.7 last hospital admit 05/2016. CT showed decompressed bladder and no hydronephrosis or nephrolithiasis - Cr on admit 7.45, continues to trend down, but seems to have reached a aleksandr of about 3.6 - Dialysis held today. Remains anuric. - Mcmillan cath in place - NS 80/hr - Nephrology following, continue dialysis per their recs. 5. Emphysema. Present on admission. CT showed severe centrilobular emphysema. - Duonebs Q4 6. Transaminitis, present on admission. Ongoing Pt reported was taking up to 6 grams of Tyl[address]ol daily. CT showed subcentimeter gallstones or sludge within the gallbladder fundus and cystic duct. The gallbladder wall is not well characterized - Acetaminophen 27.1 on admit - Acetylcysteine/Dextrose course complete - AST/ALT almost normalized - Total Bili 0.8 7. GI Bleed. Present on admission. Ongoing. EGD showed no evidence of bleed, possibility of a Dieulafoy's lesion - Stool guaiac positive. - Held home meds Brilinta and ASA - H&H remains stable, after receiving 3 units of PRBC's - Lactic acid elevated on admit 3.9, repeat values normal, continue to monitor - Protonix drip D/C per GI. Change to BID - GI following 8. NIDDM. - Currently on sliding scale - Glucose levels remain labile requiring D10 administration 9. Elevated troponin, acute, present on admission. In the setting of Renal failure. - History of CAD, on dual antiplatelet therapy - Initial troponin 0.134, repeat 0.143, 0.102 - Telemetry has shown some PVC's - Echo EF 60%-65%. LVH. - ECG continues to show prolonged [place] interval Disposition: Palliative care consult at following the case closely with and patient's son. Based on renal prognosis as well as continued pressure support conversation held with patient's and son regarding realistic expectations of recovery. Patient CODE STATUS changed to DO NOT RESUSCITATE and dialysis held for today. At time of dictation patient's and patient's son considering changing patient's status to comfort measures only. GI Prophylaxis: Proton Pump Inhibitor VTE Prophylaxis: SCDs VTE Mechanical Devices: Intermittant Pneumatic CD Resuscitation Status: CPR: Attempt Resuscitation Attending Statement I have seen and examined this patient with the resident physician. Vital signs , labs, imaging have been reviewed. I agree with the assessment and plan above. Please refer to my separately dictated progress note for any modifications to above. Christina Wilson M.D. Pulmonary and Critical Care medicine Pager [phone] BRANDEN VIVEROS DO Nov 10, 2016 13:56 Christina Wilson MD Nov 10, 2016 18:12
--- NOTE | 2016-11-10 16:02 | ABG ---
DateTimeAnalyzed 15:58:00 -_ pH ____7.303 - 7.350 7.450 pCO2 ___54.3__ -mmHg 35.0 45.0 pO2 ___86.0__ -mmHg 69.0 116 HCO3- ___26.1__ -mmol/L 22.0 26.0 ABE ___-0.2__ -mmol/L -2.0 2.0 tHb ____9.6__ -g/dL O2Hb ___93.8__ -% COHb ____1.2__ -% MetHb ____1.4__ -% sO2 ___96.3__ -% 25.0 FIO2 ___55.0__ -% PEEP ____8.0__ -cmH2O Vt __400.0__ -L Drawn By RC - Date/Time Notified____ 16:02:00 -_ Spontaneous_RR ___14.0__ -b/min Oxygen Device 1 VENTILATOR - Notified By RC - Notified Whom JACKELINE MD - B 755 -mmHg tO2 ___12.8__ -Vol% Lj test N/A -
--- NOTE | 2016-11-10 16:02 | PCM.PNMED ---
Subjective Date of Service Nov 10, 2016 Subjective Patient did okay overnight. Preventative Maintenance Technician up in dialysis today as appears to be futile. Patient making very much progress remains on norepinephrine at 0.04. Patient remains sedated. Palliative care and ICU and primary teams, as well as nephrology met with the family to discuss goals of care and possibility of comfort care and compassion extubation. Family's been resistant to this is a patient's previously stated that he wants heroic measures, although he has also stated they does not wish to be in a SNF. Repair some progress is being made on this for the family as they are coming to realize that the possibility of patient returning home is very small Exam Vital Signs Vital Sign - Last Date Time Temp Pulse Resp B/P Pulse Ox O2 Delivery O2 Flow Rate FiO2 11/10/16 12:04 70 98 55 11/10/16 12:00 36.5 11 88/38 Mechanical Ventilator 11/04/16 23:25 6 Intake and Output 11/09/16 11/09/16 11/10/16 Cumulative From/Thru 15:00 23:00 07:00 11/04/16 20:34 - 11/10/16 06:12 Intake Total 1307 ml 1383 ml 92808 ml Output Total 3258 ml 210 ml 76633 ml Balance -1951 ml 1173 ml 60421 ml Intake Oral 0 ml IV Total 1269 ml 1383 ml 73136 ml Tube Feeding 38 ml 283 ml Packed Cells 1029 ml Tube Irrigant 120 ml Output Urine Total 48 ml 60 ml 208 ml Gastric Drainage Total 210 ml 150 ml 1260 ml Ultrafiltrate 3000 ml 8800 ml # Bowel Movements 0 7 Exam General: Intubated and sedated Cardiovascular: Regular; typical to auscultate Pulmonary: Lungs are somewhat coarse rhonchus with crackles Abdomen: Abdomen is distended and tense Extremities: Edema present Skin: No rashes Neurological: Still sedated IVs and Medications Medications Reviewed: Medications were reviewed in detail Lab and Diagnostics Result Diagram: 11/10/1621911/10/16219 Microbiology culture in process X-Rays, CTs and MRIs . CT BRAIN WITHOUT CONTRAST IMPRESSION: Chronic left frontal and right parietal encephalomalacia in addition to age- related involutional changes. No acute intracranial process. CT CHEST, ABDOMEN AND PELVIS WITHOUT CONTRAST IMPRESSION: 1. Low-density bilateral pleural effusions and basilar consolidation suspicious for pneumonia. 2. Small amount of intra-abdominal ascites. No pneumoperitoneum. 3. Normal appendix. 4. Extensive aortic atherosclerosis and coronary artery calcification. Findings suspicious for high-grade infrarenal abdominal aortic stenosis. However, lack of intravenous contrast limits evaluation. 5. Severe centrilobular emphysema. X-RAY ABDOMEN, ONE VIEW IMPRESSION: No acute intra-abdominal findings. X-RAY CHEST ONE VIEW, PORTABLE 11/04/2016 IMPRESSION: Mild increased retrocardiac left basilar opacities possibly low- grade aspiration/atelectasis versus developing pneumonia. Please correlate clinically. Background chronic interstitial disease as before X-RAY CHEST ONE VIEW, PORTABLE 11/05/2016 IMPRESSION: 1. Tubes and lines as above. 2. Left basilar radiopacity. Differential considerations include aspiration, atelectasis, and infection. X-RAY CHEST ONE VIEW, PORTABLE 11/06/2016 IMPRESSION: 1. Support lines and tubes unchanged from prior exam. 2. Pulmonary edema and/or bibasilar pneumonia X-RAY CHEST ONE VIEW, PORTABLE 11/10/2016 IMPRESSION: Persistent pulmonary edema versus pneumonia. 12-lead ECG ECG Interpretation: Sinus rhythm rate 60 Prolonged [place] interval Time: 21:40 Interpreted by: ED physician Normal ECG Interpretation: No acute ischemic changes Cardiac Echo Impressions Echocardiogram Report Interpretation Summary This is a limited echocardiogram ordered. The left ventricular cavity is small. There is mild-moderate concentric left ventricular hypertrophy. The ejection fraction is estimated to be 60-65%. Assessment of diastolic parameters indicates normal left ventricular diastolic function and normal filling pressures. The right ventricle grossly appears normal in size with probable normal systolic function. There is moderate to severe mitral annular calcification. There is a porcine aortic valve. The aortic valve is not well visualized. No other echocardiographic abnormalities seen. Assessment & Plan 85 year old male with PMH of CAD, HTN, CAD (on Brilinta anticoagulation) currently being treated for for septic shock with possible underlying pneumonia , GI Bleed, renal failure. Acute hypoxic and hypercarbic respiratory failure; prednisone admission; - Intubated for protection of airway and septic shock - Vent settings per pulmonary team - Multifactorial as below - ABGs daily and when necessary Acute Septic Shock; present on admission; resolving - Patient presented with bradycardia and hypotension and was initially treated for beta marialuisa overdose; blood pressure pattern eventually revealed likely sepsis source of pneumonia - Patient continues on norepinephrine but is mildly improved; initially also required vasopressors - H&H remains stable. 3 units PRBC received initially, has not required additional infusions. - Procalcitonin resolving - Remains A-febrile with resolved leukocytosis. - Blood cultures negative x 2 Possible ileus with high intra-abdominal pressures; ongoing - Patient has large residuals of trophic feeds; pressure was reduced somewhat with NG tube suction - KUB was ordered this morning and showed dilated loops of bowel - CT will be ordered for tomorrow morning before dialysis by ICU team - Surgery was consulted and participating in the care of the patient Pneumonia, possible pseudomonas, present on admission. Treatment ongoing - CT suspicious for pneumonia. 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 Ongoing. - Hx of elevated Cr ~ 1.7 last hospital admit 05/2016. CT showed decompressed bladder and no hydronephrosis or nephrolithiasis - Cr on admit 7.45, continues to trend down 4 s/p HD x 3. - Daily Dialysis continues, total of 6,600 taken off. Remains anuric. - Nephrology following, dialysis stopped Acute Transaminitis, present on admission. Resolving -Patient was taking large amounts of Tylenol, up to 6 times a day; CT did not identify cholelithiasis or cholecystitis - Acetaminophen 27.1 on admit (elevated) - Acetylcysteine/Dextrose course complete GI Bleed. Present on admission. Ongoing. EGD showed no evidence of bleed, possibility of a Dieulafoy's lesion - Stool guaiac positive. - Held home meds Brilinta and ASA - H&H remains stable, after receiving 3 units of PRBC's - Lactic acid elevated on admit 3.9, repeat values normal, continue to monitor - Protonix drip D/C per GI. Change to BID - GI following NIDDM. - Currently on sliding scale - Glucose levels remain labile requiring D5 administration Elevated troponin, acute, present on admission. In the setting of Renal failure. - History of CAD, on dual antiplatelet therapy - Troponin was intermediate and resolving - Echo EF 60%-65%. LVH. Disposition: Patient's prognosis is extremely guarded and family discussions have let the patient being DNR/DNI at this time. Likely comfort care in the near future. Palliative care following along and appreciate their assistance as well as the ICU team, surgery, and nephrology. GI Prophylaxis: Proton Pump Inhibitor VTE Prophylaxis: SCDs VTE Mechanical Devices: Intermittant Pneumatic CD Resuscitation Status: Limited Interventions (DNR but continue other measures) Time spent 40 minutes Attending Statement Patient was seen and examined with housestaff. Agree with all attached documentation. Miguel Ángel Jones DO Nov 10, 2016 16:02 Lj Lyle MD Nov 11, 2016 13:53
[2016-11-10] MEDS: Cefepime Inj 1,000 MG in Dextrose 5% Minibag Plus 50 ML IV SCH (16:54)
--- NOTE | 2016-11-10 17:45 | NUR ---
Social Work: Updating Note D: Pt currently on day 6 of stay. Pt remains on mechanical vent with guarded prognosis. Palliative care and ICU team has been meeting with family about goals of care and care moving forward. Pt was made DNR today however treatment continues. Family is beginning to see pt's prognosis is poor although a decision to compassionately extubate and transition to full comfort has not yet been made. A: Pt who remains on a mechanical vent. P: Evolving; pt's prognosis is poor. PERCUSSION WELDING MACHINE OPERATOR to continue to follow pt's clinical progress and assist with planning as needed/requested. MONIK Aguilar
--- NOTE | 2016-11-10 19:38 | NUR ---
Neuro: Sedation decreased, propofol currently off, fentanyl at 25mcg. Not making any purposeful movement or following commands. intermittent fentanyl bolus effective for increased cough while stimulated. Resp: Vent continues at 55%. Did not tolerate attempt to reduce rate to 10 resulting in hypotension and increased ventricular ectopy. Please see CCU flowsheet for rate adjustments and pt response. GI/: OGT found partially removed, placement adjusted to 65mc, confirmed via auscultation and aspiration, total output 450ml today. No BM. intraabdominal pressure 8. No UOP via cavanaugh. Extensive amount of time spent with regarding explanation of care and support. Sons here for quite a while and appear more accepting of poor prognosis. Understand plan to include stopping dialysis with maintaining current level of care for now.
[2016-11-11] VITALS (15 sets, daily range): BP systolic 74–147; BP diastolic 43–65; PULSE 75–94; RESP 18; O2SAT 96–100
[2016-11-11] MEDS: 23.4% Sodium Chloride Inj 154 MEQ in Dextrose 10% 1,000 ML IV SCH ×2 (00:42→13:57)
[2016-11-11] MEDS: Chlorhexidine 0.12% 15 mL Oral Solution MUC_MEMBRM SCH ×6 (00:42→20:46)
[2016-11-11] MEDS: fentaNYL 2,500 mCg/250 mL 2,500 MCG in IV Premix 1 EACH IV SCH (03:33)
[2016-11-11] MEDS: Norepineph 8,000 mCg/250 mL NS 8,000 MCG in IV Premix 1 EACH IV SCH ×2 (03:33→08:25)
[2016-11-11] MEDS: Albuterol-Ipratropium 3 mL Inhalation Solution NEB SCH ×5 (03:59→23:55)
[2016-11-11 05:24] LABS: BASOPHILS % (AUTO) 0.1 % (0-3); EOSINOPHILS % (AUTO) 0.4 % (0-5); MONOCYTES % (AUTO) 11.2 % (4-12); Mean Corpuscular Hemoglobin 27.7 pg (27.0-35.0); Mean Corpuscular Volume 85.4 fL (81-100); NEUTROPHILS % (AUTO) 80.1 % (40-74); Platelet Count 69 bil/L (150-400)
--- NOTE | 2016-11-11 05:36 | NUR ---
P: Light sedation on ventilator I: Fentanyl at 50mcg E: Pt will make short eye contact but does not track. Intermittently thrashing head back and forth. Unable to keep pt's attention. Unable to follow cues. Very [place]. Moves BUEs weakly. Breathes over ventilator rate when care given. Sats in the mid 90s on 55% FIO2. Tele SR w/ PVCs. Norepinephrine drip for BP support. Norepinephrine range from 0.03 to 0.08mcg. 45ml UOP. IAP =11, CVP =13. Addendum: 11/11/16 at 0546 by SIDRA ALEXANDER RN BS dropping to 65-70. Restart D10NS at 80ml/hr. Improving BS.
--- NOTE | 2016-11-11 05:57 | ABG ---
DateTimeAnalyzed 05:54:00 -_ pH ____7.330 - 7.350 7.450 pCO2 ___48.9__ -mmHg 35.0 45.0 pO2 ___97.7__ -mmHg 69.0 116 HCO3- ___25.0__ -mmol/L 22.0 26.0 ABE ___-0.5__ -mmol/L -2.0 2.0 tHb ____9.2__ -g/dL O2Hb ___94.9__ -% COHb ____1.2__ -% MetHb ____1.3__ -% sO2 ___97.3__ -% 25.0 FIO2 ___21.0__ -% PEEP ____8.0__ -cmH2O Set_RR ___18.0__ -b/min Vt __400.0__ -L Drawn By MD - Date/Time Notified____ 05:57:00 -_ Spontaneous_RR ___18.0__ -b/min Oxygen Device 1 VENTILATOR - Notified By MD - Notified Whom RM K.BENJAMIN - B 747 -mmHg tO2 ___12.5__ -Vol% Lj test N/A -
[2016-11-11] MEDS: Insulin LISPRO 300 Unit/3 mL Inj SUBQ SCH ×4 (08:00→22:00)
[2016-11-11] MEDS: Pantoprazole 4 mg/mL 10 mL Inj IVPUSH SCH (08:25)
--- NOTE | 2016-11-11 09:11 | DRSVH ---
PROCEDURE: X-RAY CHEST ONE VIEW, PORTABLE ([id number]) INDICATIONS: Pulm Edema TECHNIQUE: One view of the chest was acquired. COMPARISON: [facility], CR, XR CHEST 1VW (PORTABLE), 11/10/2016, 5:05. FINDINGS: Surgical changes and devices: Status post aortic valvular replacement. ET tube is 6.7 cm superior to the elba. NG tube crosses the GE junction. Central venous catheter projects to the distal SVC the r ight IJ approach. Lungs and pleura: Small bilateral pleural fluid collections are noted. Bilateral lung opacities tripp tible with pulmonary edema versus pneumonia. Mediastinum: Mediastinal contours appear normal. Heart size is normal. Bones and chest wall: No suspicious bony lesions. Overlying soft tissues appear unremarkable. IMPRESSION: Stable examination compared to 11/10/16. Dictated by: Melvina Cronin MD, PhD on 11/11/2016 at 9:07 Approved by: Melvina Cronin MD, PhD on 11/11/2016 at 9:09
--- NOTE | 2016-11-11 10:44 | NUR ---
NUTRITION FOLLOW-UP Assess: 85 YO M being treated for septic shock with possible underlying pneumonia, GI Bleed, renal failure. Pt remains intubated. Enteral feeding on hold since yesterday, due to large residuals of trophic enteral feeding, possible ileus with high intra-abdominal pressures, KUB showing dilated loops of bowel. Dialysis on hold at this time as well. Patient's prognosis is extremely guarded; code status changed to DNR/DNI at this time. Likely comfort care in the near future. Palliative care following along. PMHX: Anticoagulated on Brilinta, chronic back pain, type 2 DM, cardiomyopathy, coronary disease, HTN, PVD, paralyzed vocal cord, GERD. DIET: NPO. LABS: Na 133, Chloride 96, Cr 4.72, Glu 121, Ca 7.4, PAB 8. MEDICATIONS: Fentanyl, norepi, vasopressin, ativan. GI: 2 BM 11/08 SKIN: No issues noted. WEIGHT: 97.9 kg, BMI 33.0 kg/m2, IBW 67.3 kg Admit Wt: 87.3 kg ESTIMATED NEEDS: VENT/BMI/DIALYSIS (admit wt) Calories: 3088-1863 kcal/day (22-25 kcal/kg BW) Protein: 81-135 g/day (1.2-2.0 g/kg IBW) NUTRITION DIAGNOSIS: 1) Inadequate oral intake related to decreased ability to consume sufficient energy as evidenced by NPO/Vent status - PERSISTS. INTERVENTION: 1) No recommendations at this time, pending plan of care clarification. MONITOR/EVALUATE: NPO/Vent status, GI, nutrition support, labs, nutrition status. Follow per high nutrition risk guidelines.
--- NOTE | 2016-11-11 11:50 | NUR ---
patient remains intubated and ventilated. spontaneous breathing trial not performed today. no significant change in respiratory status. will continue to support and monitor. ett ordoñez changed and dated. no skin breakdown noted.
--- NOTE | 2016-11-11 12:33 | PCM.PNMED ---
Subjective Date of Service Nov 11, 2016 Subjective Mr. Marrufo is a 85 year old gentleman medical history of CAD (on Brilinta - antiplatelet therapy), HTN, NIDDM and chronic back pain presented to the ED secondary to generalized weakness 2 days. Per patient's patient had been having a steady decline in his activity level and ability to ambulate in the days leading up to his admission culminating on 11/04/2016 with the inability to stand by himself with accompanying shortness of breath and lightheadedness. Possibility of Pneumonia leading up to this hospital admission Overnight: Dialysis had been discontinued. propofol turned off and Fentanyl reduced to 25mcg. No purposeful movement reported and does not follow commands. Intraabdominal pressure 8, still without urine or stool production. Levothroid increased to 0.09 for better blood pressure control. Exam Vital Signs Vital Sign - Last Date Time Temp Pulse Resp B/P Pulse Ox O2 Delivery O2 Flow Rate FiO2 11/11/16 11:45 78 74/65 99 55 11/11/16 08:30 Ventilator 11/11/16 08:30 36.9 18 6.00 Intake and Output 11/10/16 11/10/16 11/11/16 Cumulative From/Thru 15:00 23:00 07:00 11/04/16 20:34 - 11/11/16 05:25 Intake Total 984 ml 641 ml 25288 ml Output Total 450 ml 95 ml 39557 ml Balance 534 ml 546 ml 40236 ml Intake Oral 0 ml IV Total 984 ml 641 ml 37614 ml Tube Feeding 283 ml Packed Cells 1029 ml Tube Irrigant 120 ml Output Urine Total 0 ml 45 ml 253 ml Gastric Drainage Total 450 ml 50 ml 1760 ml Ultrafiltrate 8800 ml # Bowel Movements 0 7 Exam General: Patient intubated and sedated. Has become more arousable as sedation is titrated down, opening eyes spontaneously HEENT: PERRL Anicteric sclerae, pale conjunctivae. Endotracheal tube in place. Neck:. No jugular venous distension. Central line in place right IJ Cardiovascular: Regular rate. No murmurs appreciated. Irregular rhythm. Pulmonary: Patient ventilated, good air movement. Inspiratory and expiratory crackles slightly increased. Abdomen: Soft, distended. Not firm. Bowel tones absent. Extremities: Pretibial pitting edema. SCD's in place. Right big toe amputation. Edema in arms Bilaterally Neurological: Pt sedated Ventilator settings: Tidal volume 400. Respiratory rate 18. FiO2 0.55. PEEP 8. ABG: pH 7.33, pCO2 48.9, pO2 97.7, HCO3 25. IV drips and Sedatives: Levophed 0.09 mcg/kg/hr, Fentanyl 75/mcg/kg/hr IV lines: Left Arterial line, right central IJ line, Left AC line. Right forearm line. I&O: last 24 hrs; in + 2367, out - 660, total -1707. Total to date; in + 14371 , out - 20894, total + 26318 IVs and Medications Medications Reviewed: Medications were reviewed in detail Lab and Diagnostics Result Diagram: 11/11/16 0445 11/11/16 044 Microbiology culture in process X-Rays, CTs and MRIs . CT BRAIN WITHOUT CONTRAST 11/04/2016 IMPRESSION: Chronic left frontal and right parietal encephalomalacia in addition to age- related involutional changes. No acute intracranial process. CT CHEST, ABDOMEN AND PELVIS WITHOUT CONTRAST 11/05/2016 IMPRESSION: 1. Low-density bilateral pleural effusions and basilar consolidation suspicious for pneumonia. 2. Small amount of intra-abdominal ascites. No pneumoperitoneum. 3. Normal appendix. 4. Extensive aortic atherosclerosis and coronary artery calcification. Findings suspicious for high-grade infrarenal abdominal aortic stenosis. However, lack of intravenous contrast limits evaluation. 5. Severe centrilobular emphysema. X-RAY ABDOMEN, ONE VIEW 11/05/2016 IMPRESSION: No acute intra-abdominal findings. X-RAY KUB 11/09/2016 IMPRESSION: 1. Bibasilar airspace opacities and pleural effusions are demonstrated. 2. Paucity of gas noted throughout the bowel which is nonspecific but could be related to small bowel obstruction. Correlate clinically. X-RAY CHEST ONE VIEW, PORTABLE 11/04/2016 IMPRESSION: Mild increased retrocardiac left basilar opacities possibly low- grade aspiration/atelectasis versus developing pneumonia. Please correlate clinically. Background chronic interstitial disease as before X-RAY CHEST ONE VIEW, PORTABLE 11/05/2016 IMPRESSION: 1. Tubes and lines as above. 2. Left basilar radiopacity. Differential considerations include aspiration, atelectasis, and infection. X-RAY CHEST ONE VIEW, PORTABLE 11/06/2016 IMPRESSION: 1. Support lines and tubes unchanged from prior exam. 2. Pulmonary edema and/or bibasilar pneumonia X-RAY CHEST ONE VIEW, PORTABLE 11/10/2016 IMPRESSION: Persistent pulmonary edema versus pneumonia. X-RAY CHEST ONE VIEW, PORTABLE 11/11/2016 IMPRESSION: Stable examination compared to 11/10/16. 12-lead ECG ECG Interpretation: Sinus rhythm rate 60 Prolonged TX interval Time: 21:40 Interpreted by: ED physician Normal ECG Interpretation: No acute ischemic changes Cardiac Echo Impressions Echocardiogram Report Interpretation Summary This is a limited echocardiogram ordered. The left ventricular cavity is small. There is mild-moderate concentric left ventricular hypertrophy. The ejection fraction is estimated to be 60-65%. Assessment of diastolic parameters indicates normal left ventricular diastolic function and normal filling pressures. The right ventricle grossly appears normal in size with probable normal systolic function. There is moderate to severe mitral annular calcification. There is a porcine aortic valve. The aortic valve is not well visualized. No other echocardiographic abnormalities seen. Assessment & Plan 85 year old male with PMH of CAD, HTN, CAD (on Brilinta anticoagulation) currently being treated for for septic shock with possible underlying pneumonia , GI Bleed, renal failure. Hospital day 8, ventilator day 7. 1. Septic Shock. Present on admission. Ongoing. Pt continues to require blood pressure support. Blood pressures are improving though diastolic remains low. Possible sources include pseudomonas pneumonia. HR has improved and remains mostly in the 60's. - H&H remains stable. 3 units PRBC received initially, has not required additional infusions. - Pt positive ~13,500 ml of fluid. Currently on 40 ml/hr NS - Nor epi 0.09 mcg/kg/min - Vasopressin D/C - Procalcitonin continues to trend down 2.53 11/10/2016 - Remains A-febrile with resolved leukocytosis. - Blood cultures negative x 2 - Vigileo in place 2. Hypercarbic Respiratory failure, not present on admission. - Intubated for airway protection and #1. Sedated with fentanyl - Vent settings currently FiO2 0.55, TV 400, PEEP 8, RR 14 - ABG 11/11/2016: pH 7.33, pCO2 48.9, pO2 97.7, HCO3 25. - Duonebs scheduled Q4 3. Pneumonia, present on admission. Ongoing. CT suspicious for pneumonia. PCR positive for Coronovirus, sputum grew Pseudomonas - WBC peak of 13.1, currently 8 - Procalcitonin as above - ETT initially placed for airway protection. - ABX coverage per ID - ID following, appreciate their recommendations 4. Renal failure (acute on chronic), present on admission. Ongoing. Pt denies and NSAID use aside from ASA. Pt has Hx of elevated Cr ~ 1.7 last hospital admit 05/2016. CT showed decompressed bladder and no hydronephrosis or nephrolithiasis - Cr on admit 7.45, continues to trend down, but seems to have reached a aleksandr of about 3.6 - today 4.72 - Dialysis held today. Remains anuric. - Mcmillan cath in place - NS 40/hr - Nephrology following, appreciate their input. 5. Emphysema. Present on admission. CT showed severe centrilobular emphysema. - Duonebs Q4 6. Transaminitis, present on admission. Resolved. Pt reported was taking up to 6 grams of Tyl[address]ol daily. CT showed subcentimeter gallstones or sludge within the gallbladder fundus and cystic duct. The gallbladder wall is not well characterized - Acetaminophen 27.1 on admit - Acetylcysteine/Dextrose course complete - AST/ALT normalized - Total Bili 0.8 7. GI Bleed. Present on admission. Ongoing. EGD showed no evidence of bleed, possibility of a Dieulafoy's lesion - Stool guaiac positive. - Held home meds Brilinta and ASA - H&H remains stable, after receiving 3 units of PRBC's - Lactic acid elevated on admit 3.9, repeat values normal, continue to monitor - Protonix drip D/C per GI. Change to BID - GI following 8. NIDDM. - Currently on sliding scale - Glucose levels remain labile requiring D10 administration 9. Elevated troponin, acute, present on admission. In the setting of Renal failure. - History of CAD, on dual antiplatelet therapy - Initial troponin 0.134, repeat 0.143, 0.102, 0.082 - Telemetry continues to show 1st degree block with PVC - Echo EF 60%-65%. LVH. - ECG show prolonged TX interval, 1st degree block Disposition: Palliative care consult at following the case closely with and patient's two sons. Patient CODE STATUS changed to DO NOT RESUSCITATE and dialysis is currently being held. We will attempt to try to wean the Pt off of the ventilator and see how he responds. This should give the family a better conception of his overall prognosis. Family is considering transitioning Pt to comfort measures only. GI Prophylaxis: Proton Pump Inhibitor VTE Prophylaxis: SCDs VTE Mechanical Devices: Intermittant Pneumatic CD Resuscitation Status: Limited Interventions (DNR but continue other measures) Attending Statement The patient was seen and examined together with Dr. Monroe on 11/11/2016 and I agree with the history, exam and plan as outlined in the note above. BRANDEN MONROE DO Nov 11, 2016 12:33 Sánchez Peterson MD Nov 19, 2016 10:57
--- NOTE | 2016-11-11 13:51 | PCM.PNMED ---
Subjective Date of Service Nov 11, 2016 Subjective The patient is intubated and sedated. ROS subjective not obtainable. Exam Vital Signs Vital Sign - Last Date Time Temp Pulse Resp B/P Pulse Ox O2 Delivery O2 Flow Rate FiO2 11/11/16 12:30 36.8 79 18 132/54 98 Mechanical Ventilator 55 11/11/16 08:30 6.00 Intake and Output 11/10/16 11/10/16 11/11/16 Cumulative From/Thru 15:00 23:00 07:00 11/04/16 20:34 - 11/11/16 05:25 Intake Total 984 ml 641 ml 20158 ml Output Total 450 ml 95 ml 21765 ml Balance 534 ml 546 ml 58222 ml Intake Oral 0 ml IV Total 984 ml 641 ml 03357 ml Tube Feeding 283 ml Packed Cells 1029 ml Tube Irrigant 120 ml Output Urine Total 0 ml 45 ml 253 ml Gastric Drainage Total 450 ml 50 ml 1760 ml Ultrafiltrate 8800 ml # Bowel Movements 0 7 Exam Intubated and sedated. Eyes were open initially he was more agitated. This resolved with boluses of Ativan. Anicteric sclera Neck supple Lungs are clear with good breath sounds. Heart is regular without murmur Abdomen is soft Extremities with 1+ edema Good pedal and radial pulses. IVs and Medications Medications Reviewed: Medications were reviewed in detail Lab and Diagnostics Result Diagram: 11/11/16 0445 11/11/16 0445 Microbiology culture in process X-Rays, CTs and MRIs . CT BRAIN WITHOUT CONTRAST 11/04/2016 IMPRESSION: Chronic left frontal and right parietal encephalomalacia in addition to age- related involutional changes. No acute intracranial process. CT CHEST, ABDOMEN AND PELVIS WITHOUT CONTRAST 11/05/2016 IMPRESSION: 1. Low-density bilateral pleural effusions and basilar consolidation suspicious for pneumonia. 2. Small amount of intra-abdominal ascites. No pneumoperitoneum. 3. Normal appendix. 4. Extensive aortic atherosclerosis and coronary artery calcification. Findings suspicious for high-grade infrarenal abdominal aortic stenosis. However, lack of intravenous contrast limits evaluation. 5. Severe centrilobular emphysema. X-RAY ABDOMEN, ONE VIEW 11/05/2016 IMPRESSION: No acute intra-abdominal findings. X-RAY KUB 11/09/2016 IMPRESSION: 1. Bibasilar airspace opacities and pleural effusions are demonstrated. 2. Paucity of gas noted throughout the bowel which is nonspecific but could be related to small bowel obstruction. Correlate clinically. X-RAY CHEST ONE VIEW, PORTABLE 11/04/2016 IMPRESSION: Mild increased retrocardiac left basilar opacities possibly low- grade aspiration/atelectasis versus developing pneumonia. Please correlate clinically. Background chronic interstitial disease as before X-RAY CHEST ONE VIEW, PORTABLE 11/05/2016 IMPRESSION: 1. Tubes and lines as above. 2. Left basilar radiopacity. Differential considerations include aspiration, atelectasis, and infection. X-RAY CHEST ONE VIEW, PORTABLE 11/06/2016 IMPRESSION: 1. Support lines and tubes unchanged from prior exam. 2. Pulmonary edema and/or bibasilar pneumonia X-RAY CHEST ONE VIEW, PORTABLE 11/10/2016 IMPRESSION: Persistent pulmonary edema versus pneumonia. X-RAY CHEST ONE VIEW, PORTABLE 11/11/2016 IMPRESSION: Stable examination compared to 11/10/16. 12-lead ECG ECG Interpretation: Sinus rhythm rate 60 Prolonged AR interval Time: 21:40 Interpreted by: ED physician Normal ECG Interpretation: No acute ischemic changes Cardiac Echo Impressions Echocardiogram Report Interpretation Summary This is a limited echocardiogram ordered. The left ventricular cavity is small. There is mild-moderate concentric left ventricular hypertrophy. The ejection fraction is estimated to be 60-65%. Assessment of diastolic parameters indicates normal left ventricular diastolic function and normal filling pressures. The right ventricle grossly appears normal in size with probable normal systolic function. There is moderate to severe mitral annular calcification. There is a porcine aortic valve. The aortic valve is not well visualized. No other echocardiographic abnormalities seen. Assessment & Plan 85 year old male with PMH of CAD, HTN, CAD (on Brilinta anticoagulation) currently being treated for for septic shock with possible underlying pneumonia , GI Bleed, renal failure. 1. Acute hypoxic and hypercarbic respiratory failure; POA; - Intubated for protection of airway and septic shock - Vent settings per pulmonary team - Multifactorial as below - ABGs daily and when necessary The patient continues required FiO2 of 0.55 as well as a higher PEEP. Chest x- ray continues to show persistent possible infiltrates and pulmonary edema. The patient was weaned off from fentanyl and was on a lower dose of propofol this morning though he is having some agitation. We will try to keep him off from the fentanyl and this point and boluses of Ativan to use only as needed. 2. Acute Septic Shock; present on admission; resolving - Patient presented with bradycardia and hypotension and was initially treated for beta marialuisa overdose; blood pressure pattern eventually revealed likely sepsis source of pneumonia - Patient continues on norepinephrine but is mildly improved; initially also required vasopressors - H&H remains stable. 3 units PRBC received initially, has not required additional infusions. - Procalcitonin resolving - Remains A-febrile with resolved leukocytosis. - Blood cultures negative x 2 He is requiring 0.04 mcg/kg/m of norepinephrine at this point. Continue to treat him for primary infection focus of possible pseudomonas pneumonia. 3. Possible ileus with high intra-abdominal pressures; ongoing - Patient has large residuals of trophic feeds; pressure was reduced somewhat with NG tube suction - KUB was ordered this morning and showed dilated loops of bowel - CT will be ordered for tomorrow morning before dialysis by ICU team - Surgery was consulted and participating in the care of the patient 4. Possible pseudomonas gram-negative wilfrid pneumonia, present on admission. Treatment ongoing - CT suspicious for pneumonia. PCR positive for Coronovirus, sputum grew Pseudomonas - Leukocytosis resolved - Procalcitonin decreasing, 3.46 today - Continuing cefepime for at least another day - ID following, appreciate their recommendations 5. 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 Ongoing. - Hx of elevated Cr ~ 1.7 last hospital admit 05/2016. CT showed decompressed bladder and no hydronephrosis or nephrolithiasis - Cr on admit 7.45, continues to trend down 4 s/p HD x 3. - Daily Dialysis continues, total of 6,600 taken off. Remains anuric. - Nephrology following, dialysis stopped The renal function has worsened overnight by creatinine as well as decreased urinary output. We will continue to follow closely but it seems unlikely the patient will recover renal function. 6. Acute Transaminitis, present on admission. Resolving -Patient was taking large amounts of Tylenol, up to 6 times a day; CT did not identify cholelithiasis or cholecystitis - Acetaminophen 27.1 on admit (elevated) - Acetylcysteine/Dextrose course complete 7. GI Bleed. Present on admission. Ongoing. EGD showed no evidence of bleed, possibility of a Dieulafoy's lesion - Stool guaiac positive. - Held home meds Brilinta and ASA - H&H remains stable, after receiving 3 units of PRBC's - Lactic acid elevated on admit 3.9, repeat values normal, continue to monitor - Protonix drip D/C per GI. Change to BID - GI following No further workup at this time. Continue to follow hematocrit which is stable. 8. DM 2. - Currently on sliding scale - Glucose levels remain labile requiring D5 administration 9. Elevated troponin, acute, present on admission. In the setting of Renal failure. - History of CAD, on dual antiplatelet therapy - Troponin was intermediate and resolving - Echo EF 60%-65%. LVH. This patient has very poor prognosis. He has multi-organ dysfunction and appears to not really be improving with regards to getting off from the vent due to a ongoing high requirement of oxygen and PEEP. We will continue to discuss the possibility of comfort care with the family. I believe they are really waiting to see if the kidney function continues to worsen over the next day or so. GI Prophylaxis: Proton Pump Inhibitor VTE Prophylaxis: SCDs VTE Mechanical Devices: Intermittant Pneumatic CD Resuscitation Status: Limited Interventions (DNR but continue other measures) Time spent 40 min Lj Lyle MD Nov 11, 2016 13:51
--- NOTE | 2016-11-11 14:34 | NUR ---
P: Hypotension I: Pt thrashing his head from side to side and very anxious. Pt eyes open but does not track or follow commands. Norepinephrine gtt titrated to keep MAP>65. Pt BP labile. NSR with very frequent PVC's. OGT to LCS with yellow drainage. Mcmillan patent with hardly any urine output. Rt groin HD intact. Blood sugars stable with D10 infusing at 40cc/hr. at bedside this am and was updated on pt's condition and plan of care. She went home for awhile. Levophed gtt at 0.07mcqs/kg/min. Fentanyl 75 mcqs/hr. Ativan 2mg IV given x1 for agitation. Turned Q 2 hours. SCD's on. E: Stable S: Restraints on for pt safety. Frequent rounding.
[2016-11-11] MEDS: Cefepime Inj 1,000 MG in Dextrose 5% Minibag Plus 50 ML IV SCH (16:17)
[2016-11-12] VITALS (12 sets, daily range): BP systolic 107–134; BP diastolic 38–54; PULSE 74–84; RESP 18; O2SAT 96–100
[2016-11-12] MEDS: Chlorhexidine 0.12% 15 mL Oral Solution MUC_MEMBRM SCH ×6 (00:35→20:30)
[2016-11-12] MEDS: 23.4% Sodium Chloride Inj 154 MEQ in Dextrose 10% 1,000 ML IV SCH ×2 (00:43→17:00)
[2016-11-12] MEDS: Albuterol-Ipratropium 3 mL Inhalation Solution NEB SCH ×5 (04:31→20:58)
--- NOTE | 2016-11-12 05:33 | NUR ---
P: low BP I: norepinephrine E: Titrate norepinephrine from 0.06mcg to 0.02mcg. Ativan 2mg IVP given this AM and BP dropping to 80/30-40s. Increase BP drip to 0.04mcg and BP improving after 5-10 mins. Ativan 2mg given at 2315 and 0500 r/t pt thrashing head back and forth along w/ bronchospastic coughing. Eyes half way open. Does not make eye contact or follow cues. Titrate fentanyl drip from 75mcg to off. Ativan longer lasting. Tele SR w/ PVCs. CVP = 14. UOP = 15ml.
[2016-11-12] MEDS: Insulin LISPRO 300 Unit/3 mL Inj SUBQ SCH ×4 (08:00→20:41)
--- NOTE | 2016-11-12 08:16 | PCM.PNMED ---
Subjective Date of Service Nov 12, 2016 Subjective Patient is intubated and sedated. ROS subjective are not obtainable. Exam Vital Signs Vital Sign - Last Date Time Temp Pulse Resp B/P Pulse Ox O2 Delivery O2 Flow Rate FiO2 11/12/16 07:54 81 134/50 96 55 11/12/16 04:30 Ventilator 11/12/16 04:30 36.6 18 11/11/16 08:30 6.00 Intake and Output 11/11/16 11/11/16 11/12/16 Cumulative From/Thru 15:00 23:00 07:00 11/04/16 20:34 - 11/12/16 05:06 Intake Total 718 ml 695 ml 67998 ml Output Total 15 ml 15 ml 32764 ml Balance 703 ml 680 ml 31482 ml Intake Oral 0 ml IV Total 718 ml 695 ml 55684 ml Tube Feeding 283 ml Packed Cells 1029 ml Tube Irrigant 120 ml Output Urine Total 15 ml 15 ml 283 ml Gastric Drainage Total 1760 ml Ultrafiltrate 8800 ml # Bowel Movements 0 7 Exam Intubated and sedated. Anicteric sclerae. Neck supple Lungs are clear, passive ventilation. Heart is regular without murmur gallop or rub. Abdomen is non-tender. Extremities edema. Good radial pulses. Skin is free of rash or lesions. IVs and Medications Medications Reviewed: Medications were reviewed in detail Lab and Diagnostics Result Diagram: 11/11/16 0445 11/11/16 0445 Microbiology culture in process X-Rays, CTs and MRIs . CT BRAIN WITHOUT CONTRAST 11/04/2016 IMPRESSION: Chronic left frontal and right parietal encephalomalacia in addition to age- related involutional changes. No acute intracranial process. CT CHEST, ABDOMEN AND PELVIS WITHOUT CONTRAST 11/05/2016 IMPRESSION: 1. Low-density bilateral pleural effusions and basilar consolidation suspicious for pneumonia. 2. Small amount of intra-abdominal ascites. No pneumoperitoneum. 3. Normal appendix. 4. Extensive aortic atherosclerosis and coronary artery calcification. Findings suspicious for high-grade infrarenal abdominal aortic stenosis. However, lack of intravenous contrast limits evaluation. 5. Severe centrilobular emphysema. X-RAY ABDOMEN, ONE VIEW 11/05/2016 IMPRESSION: No acute intra-abdominal findings. X-RAY KUB 11/09/2016 IMPRESSION: 1. Bibasilar airspace opacities and pleural effusions are demonstrated. 2. Paucity of gas noted throughout the bowel which is nonspecific but could be related to small bowel obstruction. Correlate clinically. X-RAY CHEST ONE VIEW, PORTABLE 11/04/2016 IMPRESSION: Mild increased retrocardiac left basilar opacities possibly low- grade aspiration/atelectasis versus developing pneumonia. Please correlate clinically. Background chronic interstitial disease as before X-RAY CHEST ONE VIEW, PORTABLE 11/05/2016 IMPRESSION: 1. Tubes and lines as above. 2. Left basilar radiopacity. Differential considerations include aspiration, atelectasis, and infection. X-RAY CHEST ONE VIEW, PORTABLE 11/06/2016 IMPRESSION: 1. Support lines and tubes unchanged from prior exam. 2. Pulmonary edema and/or bibasilar pneumonia X-RAY CHEST ONE VIEW, PORTABLE 11/10/2016 IMPRESSION: Persistent pulmonary edema versus pneumonia. X-RAY CHEST ONE VIEW, PORTABLE 11/11/2016 IMPRESSION: Stable examination compared to 11/10/16. 12-lead ECG ECG Interpretation: Sinus rhythm rate 60 Prolonged IA interval Time: 21:40 Interpreted by: ED physician Normal ECG Interpretation: No acute ischemic changes Cardiac Echo Impressions Echocardiogram Report Interpretation Summary This is a limited echocardiogram ordered. The left ventricular cavity is small. There is mild-moderate concentric left ventricular hypertrophy. The ejection fraction is estimated to be 60-65%. Assessment of diastolic parameters indicates normal left ventricular diastolic function and normal filling pressures. The right ventricle grossly appears normal in size with probable normal systolic function. There is moderate to severe mitral annular calcification. There is a porcine aortic valve. The aortic valve is not well visualized. No other echocardiographic abnormalities seen. Assessment & Plan 85 year old male with PMH of CAD, HTN, CAD (on Brilinta anticoagulation) currently being treated for for septic shock with possible underlying pneumonia , GI Bleed, renal failure. 1. Acute hypoxic and hypercarbic respiratory failure; POA; - Intubated for protection of airway and septic shock - Vent settings per pulmonary team - Multifactorial as below The patient shows no evidence of improvement. The patient has a current setting of FiO2 0.55 PEEP of 10. In spite of this oxygen saturations are only 98%. 2. Acute Septic Shock; present on admission; resolving - Patient presented with bradycardia and hypotension and was initially treated for beta marialuisa overdose; blood pressure pattern eventually revealed likely sepsis source of pneumonia - Patient continues on norepinephrine but is mildly improved; initially also required vasopressors - H&H remains stable. 3 units PRBC received initially, has not required additional infusions. - Procalcitonin resolving - Remains A-febrile with resolved leukocytosis. - Blood cultures negative x 2 The patient is being treated for possible pseudomonas pneumonia. He remains on norepinephrine. He is requiring 0.02 mcg/kg/m of norepinephrine at this point. Continue to treat him for primary infection focus of possible pseudomonas pneumonia. 3. Possible ileus with high intra-abdominal pressures; ongoing - Patient has large residuals of trophic feeds; pressure was reduced somewhat with NG tube suction - KUB was ordered this morning and showed dilated loops of bowel - CT will be ordered for tomorrow morning before dialysis by ICU team - Surgery was consulted and participating in the care of the patient Continue nasogastric tube decompression. 4. Possible pseudomonas gram-negative wilfrid pneumonia, present on admission. Treatment ongoing - CT suspicious for pneumonia. PCR positive for Coronovirus, sputum grew Pseudomonas - Leukocytosis resolved - Procalcitonin decreasing, 3.46 today Continue current antibiotics. 5. 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 Ongoing. - Hx of elevated Cr ~ 1.7 last hospital admit 05/2016. CT showed decompressed bladder and no hydronephrosis or nephrolithiasis - Cr on admit 7.45, continues to trend down 4 s/p HD x 3. - Daily Dialysis continues, total of 6,600 taken off. Remains anuric. - Nephrology following, dialysis stopped The patient shows no evidence of improvement. He essentially has become and uric. The patient's laboratories from today are pending. The renal function has worsened overnight by creatinine as well as decreased urinary output. We will continue to follow closely but it seems unlikely the patient will recover renal function. 6. Acute Transaminitis, present on admission. Resolving -Patient was taking large amounts of Tylenol, up to 6 times a day; CT did not identify cholelithiasis or cholecystitis - Acetaminophen 27.1 on admit (elevated) - Acetylcysteine/Dextrose course complete 7. GI Bleed. Present on admission. Ongoing. EGD showed no evidence of bleed, possibility of a Dieulafoy's lesion - Stool guaiac positive. - Held home meds Brilinta and ASA - H&H remains stable, after receiving 3 units of PRBC's - Lactic acid elevated on admit 3.9, repeat values normal, continue to monitor - Protonix d BID Hematocrit is stable at this point. No further workup at this time. Continue to follow hematocrit which is stable. 8. DM 2. - Currently on sliding scale - Glucose levels remain labile requiring D5 administration 9. Elevated troponin, acute, present on admission. In the setting of Renal failure. - History of CAD, on dual antiplatelet therapy - Troponin was intermediate and resolving - Echo EF 60%-65%. LVH. Discussed the situation with this morning. The plan is to consider withdrawal of supportive measures on Sunday if his clinical turn of events. Pain Evaluation: Adequate Pain Control GI Prophylaxis: Proton Pump Inhibitor VTE Prophylaxis: SCDs VTE Mechanical Devices: Intermittant Pneumatic CD Resuscitation Status: Limited Interventions (DNR but continue other measures) Time spent 30 minutes Lj Lyle MD Nov 12, 2016 08:16
--- NOTE | 2016-11-12 09:30 | NUR ---
AIDAN AIDAN signed
[2016-11-12] MEDS: Pantoprazole 4 mg/mL 10 mL Inj IVPUSH SCH (09:41)
[2016-11-12] MEDS: levoFLOXacin Inj 500 MG in IV Premix 1 EACH IV SCH (09:43)
[2016-11-12 10:41] LABS: Mean Corpuscular Hemoglobin 27.5 pg (27.0-35.0); Mean Corpuscular Volume 84.8 fL (81-100)
[2016-11-12] MEDS ORDERED: Albumin 25% 50 GM in IV Premix 1 EACH IV ONE (12:50)
--- NOTE | 2016-11-12 13:54 | ABG ---
DateTimeAnalyzed 13:50:00 -_ pH ____7.338 - 7.350 7.450 pCO2 ___43.8__ -mmHg 35.0 45.0 pO2 ___99.1__ -mmHg 69.0 116 HCO3- ___22.9__ -mmol/L 22.0 26.0 ABE ___-2.2__ -mmol/L -2.0 2.0 tHb ____8.8__ -g/dL O2Hb ___94.8__ -% COHb ____1.3__ -% MetHb ____1.4__ -% sO2 ___97.4__ -% 25.0 FIO2 ___55.0__ -% PEEP ____8.0__ -cmH2O Set_RR ___18.0__ -b/min Vt __400.0__ -L Drawn By cf - Oxygen Device 1 VENTILATOR - Notified By cf - Notified Whom ___Dr. Kendregan - B 765 -mmHg tO2 ___11.9__ -Vol% Lj test N/A -
--- NOTE | 2016-11-12 15:34 | PROG NOTE ---
[address] [address] PROGRESS NOTE PATIENT: YVONNE CANTOR : 1930 MR#: [id number] ADMIT: 11/04/2016 JOB ID: [id number] DATE: 11/12/2016 PROBLEM LIST: 1. Shock. 2. Hypoxemic hypercarbic respiratory failure. 3. Pneumonia. 4. Renal failure. 5. COPD. 6. Non-insulin dependent diabetes mellitus. 7. Cardiac arrhythmias. SUBJECTIVE: None. OBJECTIVE: Temperature 36.9. Pulse is 79-82, respiratory rate 18 with ventilator set at 18, blood pressure 107/41 to as high as 132/47. O2 sat on FiO2 of 55%, PEEP of 8, is 97%. I and O shows 1.3 L in. No urine. Fifty mL of gastric drainage out. General appearance: Sedated. Somewhat agitated. Moving his head at times, a shaking motion, as if to rid himself of the endotracheal tube. Chest has good breath sounds. Maybe a few crackles at the right base laterally. Remainder of lung ruiz were relatively clear. Heart: Somewhat distant heart tones. Seems irregular rhythm. Monitor shows some PVCs. Abdomen soft. Somewhat distended. Very few bowel tones. Extremities 2 to 3+ pretibial edema. LABORATORY DATA: Shows a white count of 7100. No differential available but has showed a moderate neutrophilia in the past. Hemoglobin 8.5. Relatively stable. Platelet count continues to dwindle at 53,000. Sodium 136, potassium 4.3, chloride 98, CO2 is 22. BUN 33, creatinine 5.7, up from 4.7 yesterday. Calcium 7.6. Albumin 2.2. Total protein 5.7. ASSESSMENT: 1. Acute respiratory distress syndrome. No particular changes. Has the underlying emphysema. Does have mild degree of auto PEEP with peak pressures of 24, plateaus of 17. PEEP is set at 8 but measured at about 11. Not having any particular problems and I do not know that we need to change the ventilator much at this point. 2. Shock. Remaining vasopressor dependent. On lower doses of norepinephrine to maintain a reasonable mean arterial pressure. 3. Acute renal failure. In complete failure at this point with creatinine rising, 1 mg/dL in the past 24 hours. Not putting out any urine. 4. Arrhythmias. Patient has had a relative bradycardia. Now his rate is a bit better. Having some PVCs, so the rate of 85 is a bit misleading. However, he obviously is perfusing better with extremities being relatively warm. 5. Thrombocytopenia. Likely due to DIC. Cannot rule out heparin-induced antibodies but I doubt that is the problem. Currently is not receiving any heparin due to his GI bleed. Discussed the situation with the patient's and son. They are having a family meeting later today to talk about his status. The understand he is quite critically ill and unfortunately not making any progress. That wish to respect his wishes. He never wanted to be in a group home and I think at this juncture, group home might be the best outcome we can hope for. However, given his worsening renal failure and other significant comorbidities, such as shock, respiratory failure, thrombocytopenia, they are all pointing to a very poor outcome. PLAN: 1. Continue present regimen. 2. Consider albumin followed by Lasix. 3. I think we can continue the current vent settings. 4. Obtain arterial blood gas to see where we are PH-lomeli. I would hope we can get the bicarbonate infusion down. Time spent so far in critical care, 60 minutes.
--- NOTE | 2016-11-12 15:46 | PROG NOTE ---
[address] [address] PROGRESS NOTE PATIENT: YVONNE CANTOR : 1930 MR#: [id number] ADMIT: 11/04/2016 JOB ID: [id number] DATE: The patient remains critically ill but his intraabdominal pressures remain within physiologic range. Discussed with Dr. Lyle. General Surgery will sign off.
[2016-11-12] MEDS: Cefepime Inj 1,000 MG in Dextrose 5% Minibag Plus 50 ML IV SCH (17:00)
[2016-11-12] MEDS ORDERED: Furosemide 10 mg/mL 10 mL Inj IVPUSH ONE (17:00)
--- NOTE | 2016-11-12 18:00 | NUR ---
Lasix/Albumin admin as per order Addendum: 11/12/16 at 2013 by DAINA PARMAR RN No UOP post Lasix IVP.
[2016-11-12] MEDS: Norepineph 8,000 mCg/250 mL NS 8,000 MCG in IV Premix 1 EACH IV SCH (18:39)
[2016-11-12] MEDS: fentaNYL 2,500 mCg/250 mL 2,500 MCG in IV Premix 1 EACH IV SCH (18:39)
--- NOTE | 2016-11-12 19:15 | NUR ---
Spouse keeping langley @ bedside Support offered frequently to pt's Spouse; she is able to verbalize sadness as well as share frequently about their life of ~50yrs together. States she will stay tonight by pt's side; aware that sunday will be discussing options with MDs.
[2016-11-13] VITALS (8 sets, daily range): BP systolic 106–134; BP diastolic 38–61; PULSE 73–86; RESP 18; O2SAT 98–99
[2016-11-13] MEDS: Albuterol-Ipratropium 3 mL Inhalation Solution NEB SCH ×4 (01:11→12:02)
[2016-11-13] MEDS: Chlorhexidine 0.12% 15 mL Oral Solution MUC_MEMBRM SCH ×4 (02:09→12:38)
--- NOTE | 2016-11-13 03:27 | ABG ---
DateTimeAnalyzed 03:24:00 -_ pH ____7.305 - 7.350 7.450 pCO2 ___48.2__ -mmHg 35.0 45.0 pO2 ___82.9__ -mmHg 69.0 116 HCO3- ___23.2__ -mmol/L 22.0 26.0 ABE ___-2.5__ -mmol/L -2.0 2.0 tHb ____8.3__ -g/dL O2Hb ___93.7__ -% COHb ____1.3__ -% MetHb ____1.1__ -% sO2 ___96.0__ -% 25.0 FIO2 ___50.0__ -% PEEP ____8.0__ -cmH2O Set_RR ___18.0__ -b/min Vt __400.0__ -L Drawn By jh - Date/Time Notified____ 03:27:00 -_ Oxygen Device 1 VENTILATOR - Notified By jh - Notified Whom ___rncame - B 760 -mmHg tO2 ___11.0__ -Vol% OrderingPhysicianInitials bak - Lj test N/A -
[2016-11-13 03:34] LABS: BASOPHILS % (AUTO) 0.2 % (0-3); EOSINOPHILS % (AUTO) 0.8 % (0-5); MONOCYTES % (AUTO) 13.8 % (4-12); Mean Corpuscular Hemoglobin 27.8 pg (27.0-35.0); Mean Corpuscular Volume 84.9 fL (81-100); NEUTROPHILS % (AUTO) 71.6 % (40-74); Platelet Count 61 bil/L (150-400)
[2016-11-13 04:05] LABS: Phosphorus 6.3 mg/dL (2.5-4.9)
[2016-11-13] MEDS: 23.4% Sodium Chloride Inj 154 MEQ in Dextrose 10% 1,000 ML IV SCH (06:24)
--- NOTE | 2016-11-13 06:33 | NUR ---
BP/Levophed BP difficult to manage throughout shift. SBP ranged from 70s-220s. Titrated Levophed gtt with BP, but pt extremely sensitive. WHen I arrived, pt on Levophed 0.2mcg/kg/min and was able to wean this completely off. Pt tolerated well for ~2 hours, then started getting hypotensive. At this point increased Levophed from 0.025- 0.1. Pt had extreme sensitivity to Levophed where his BP would be 70s/40s, then increase to 200s/80s. Frequent PVCs. MD notified and did not want to change med. CVP 16. Pt hooked up to [employer] monitoring and shows low SVRI. MD aware. Labs drawn and were worse, but expected values. Pt aware of deteriorating BP. Care ongoing
[2016-11-13] MEDS: Insulin LISPRO 300 Unit/3 mL Inj SUBQ SCH ×2 (08:00→12:00)
--- NOTE | 2016-11-13 09:33 | DRSVH ---
PROCEDURE: X-RAY CHEST ONE VIEW, PORTABLE ([id number]) INDICATIONS: ARDS, pneumonia TECHNIQUE: One view of the chest was acquired. COMPARISON: [facility], CR, XR CHEST 1VW (PORTABLE), 11/11/2016, 3:24. FINDINGS: Surgical changes and devices: Status post aortic valvular replacement. ET tube is 8.4 cm superior to the elba. NG tube crosses the GE junction. Central venous catheter projects to the distal SVC the r ight IJ approach. Lungs and pleura: Small bilateral pleural fluid collections are noted. Bilateral lung opacities tripp tible with pulmonary edema versus pneumonia. Mediastinum: Mediastinal contours appear normal. Heart size is enlarged. Bones and chest wall: No suspicious bony lesions. Overlying soft tissues appear unremarkable. IMPRESSION: Pulmonary edema and or diffuse bilateral pneumonia with no significant change. ARDS yanelis ot be excluded. Dictated by: Glynn Martines A Interpreted: Melvina Cronin MD on 11/13/2016 at 9:32 Transcribed by: MACRINA on 11/13/2016 at 9:33 Approved by: Melvina Cronin MD, PhD on 11/13/2016 at 16:31
[2016-11-13] MEDS: Pantoprazole 4 mg/mL 10 mL Inj IVPUSH SCH (09:34)
--- NOTE | 2016-11-13 10:27 | PROG NOTE ---
[address] [address] PROGRESS NOTE PATIENT: YVONNE CANTOR : 1930 MR#: [id number] ADMIT: 11/04/2016 JOB ID: [id number] DATE: 11/13/2016 REASON FOR FOLLOWUP: Refractory shock, ventilator dependent respiratory failure, pneumonia, renal failure and hepatic injury. INTERVAL HISTORY: Over the past three days, the patient has remained in shock, though his vasopressor dose is a bit reduced. He remains ventilator dependent and critically ill, with minimal urine output and ongoing renal failure. This case was discussed during ICU rounds this morning, and also with the patient's family in the room. A tentative decision to withdraw care has been made and I discussed this briefly with the patient's family and supported their decision given that the patient had previously expressed the desire not to be maintained on machines or confined in a [place] [facility] facility. Obviously, no additional history is available from this intubated, sedated patient. PHYSICAL EXAMINATION: Reveals an intubated, critically ill-appearing gentleman, lying supine in the ICU. His temperature remains 36.6, pulse 72, respiratory rate 18, blood pressure is 116/45, though requiring norepinephrine in modest doses to maintain that. He is saturating 99% on 55%, which is little change house attendant the past several days. His urine output continues to be essentially 0. There is no obvious skin rash. Oral endotracheal tube, oral gastric tube in good position. Lungs with coarse rales. Cardiac tones without change as compared to prior exams. Abdomen slightly distended. LABORATORIES: Include a white count 5000, without neutrophilia, platelet count 61,000. Creatinine 6.55. LFTs normal. Procalcitonin has declined from 9.36 a week ago to 1.23 today. Urinalysis without white cells. No new micro is available. Recall that we did have a Gram stain from his sputum that did not much look like gram-negative pneumonia but did grow Pseudomonas which we have been aggressively addressing over the past several days. IMAGING: Continues to show bilateral infiltrates. IMPRESSION: This unfortunate patient has now been in the hospital a total of almost 10 days, and continues to have minimal improvement in multiple problems including ongoing shock requiring vasopressors, as well as ongoing ventilator dependent respiratory failure with what appears to be adult respiratory distress syndrome (ARDS). He continues to be in renal failure with creatinine rapidly rising and essentially no urine output. RECOMMENDATIONS: 1. I agree with the other notes in the chart and with a discussion on ICU rounds and with the family today to withdraw care. 2. Will go ahead and stop his broad-spectrum antibiotics, as I think additional antibiotic use in this case is futile as we have seen no improvement clinically, though we have seen some decrease in his procalcitonin. 3. ID will go ahead and sign off at this time. Please do not hesitate to call us if things change, but I agree with the plans to withdraw care.
[2016-11-13] MEDS ORDERED: fentaNYL 2,500 mCg/250 mL 2,500 MCG in IV Premix 1 EACH IV SCH (11:47)
[2016-11-13] MEDS ORDERED: LORazepam 100 mg/100 mL NS 100 MG in IV Premix 100 EACH IV SCH (11:47)
--- NOTE | 2016-11-13 12:36 | NUR ---
Pt to be extubated to comfort care. Pt's family spoke with MD and pt will be extubated to comfort care. Ativan and fentanyl gtt for pain and anxiety.
--- NOTE | 2016-11-13 13:24 | NUR ---
Palliative Care BOBBIN CLEANING MACHINE OPERATOR Visit11/13/1709:30AM D: This headline writer met with pt.'s , Zena, and her son to talk about how they are coping with pt. being transitioned to comfort care and with the plan to compassionately extubate pt. today. Pt. is expected to once he is extubated. Zena shared that she feels prepared for pt.'s and she feels 'settled' about the decision to extubate him. She told this headline writer that she knows with home they will use and that [place] [facility] [place] Per Zena, family is waiting to extubate pt. until her other son is told of the plan for allowing pt. to . This other family was going to call [facility] at around noon today. A: Family appears to be coping well with the reality that pt.'s condition is terminal, and they plan to proceed with compassionate extubation today. P: Pt. will likely once extubated. Betsy Carpio, BOBBIN CLEANING MACHINE OPERATOR, [facility]
--- NOTE | 2016-11-13 13:43 | PCM.PNMED ---
Subjective Date of Service Nov 13, 2016 Subjective Pulmonology consult Progress Note: Attending Dr. Peterson. Requesting provider Dr. Oliver. Reason for consult septic shock Mr. Marrufo is a 85 year old gentleman medical history of CAD (on Brilinta - antiplatelet therapy), HTN, NIDDM and chronic back pain presented to the ED secondary to generalized weakness 2 days. Per patient's patient had been having a steady decline in his activity level and ability to ambulate in the days leading up to his admission culminating on 11/04/2016 with the inability to stand by himself with accompanying shortness of breath and lightheadedness. Possibility of Pneumonia leading up to this hospital admission Overnight: Per nurses note, SBP ranged from 220's to 70's. Levophed was titrated accordingly. Pt remained with a low SRVI and continues to have PVC's. Was given Lasix and Albumin however still remains anuric. Today: Pt at bedside and once again states understanding that is not improving medically, discussion revisited about withdrawing support which she replied would be her and her husbands wish. We will attempt to coordinate patient's 2 sons for hospital visit today and final farewell's with the plan of withdrawing care this afternoon. Exam Vital Signs Vital Sign - Last Date Time Temp Pulse Resp B/P Pulse Ox O2 Delivery O2 Flow Rate FiO2 11/13/16 07:39 72 116/45 99 55 11/13/16 07:13 Ventilator 11/13/16 07:13 36.6 18 11/11/16 08:30 6.00 Intake and Output 11/12/16 11/12/16 11/13/16 Cumulative From/Thru 15:00 23:00 07:00 11/04/16 20:34 - 11/13/16 06:30 Intake Total 801 ml 1134 ml 37501 ml Output Total 35 ml 0 ml 89569 ml Balance 766 ml 1134 ml 86911 ml Intake Oral 0 ml IV Total 801 ml 1134 ml 68546 ml Tube Feeding 283 ml Packed Cells 1029 ml Tube Irrigant 120 ml Output Urine Total 10 ml 0 ml 293 ml Gastric Drainage Total 25 ml 1785 ml Ultrafiltrate 8800 ml # Bowel Movements 0 0 7 Exam General: Patient intubated and sedated. Somewhat arousable to voice, though no purposeful movement. HEENT: Endotracheal tube in place. Neck:. No jugular venous distension. Central line in place right IJ Cardiovascular: Regular rate. No murmurs appreciated. Irregular rhythm. Pulmonary: Patient ventilated, good air movement. Inspiratory and expiratory crackles present. Abdomen: Soft, not firm. Bowel tones absent. Extremities: Pretibial pitting edema. SCD's in place. Right big toe amputation. Edema in arms Bilaterally Neurological: Pt sedated Ventilator settings: Tidal volume 400. Respiratory rate 18. FiO2 0.55. PEEP 8 ABG: pH 7.305, pCO2 48.2, pO2 82.9, HCO3 23.2 IV drips and Sedatives: Levophed 0.09 mcg/kg/hr, Fentanyl 75/mcg/kg/hr IV lines: Left Arterial line, right central IJ line, Left AC line. Right forearm line I&O: last 24 hrs; in + 1496, out - 50, total + 1446. Total to date; in + 09246 , out - 94546, total + 63944 IVs and Medications Medications Reviewed: Medications were reviewed in detail Lab and Diagnostics Result Diagram: 11/13/16 0320 11/13/16 0320 Microbiology culture in process X-Rays, CTs and MRIs . CT BRAIN WITHOUT CONTRAST 11/04/2016 IMPRESSION: Chronic left frontal and right parietal encephalomalacia in addition to age- related involutional changes. No acute intracranial process. CT CHEST, ABDOMEN AND PELVIS WITHOUT CONTRAST 11/05/2016 IMPRESSION: 1. Low-density bilateral pleural effusions and basilar consolidation suspicious for pneumonia. 2. Small amount of intra-abdominal ascites. No pneumoperitoneum. 3. Normal appendix. 4. Extensive aortic atherosclerosis and coronary artery calcification. Findings suspicious for high-grade infrarenal abdominal aortic stenosis. However, lack of intravenous contrast limits evaluation. 5. Severe centrilobular emphysema. X-RAY ABDOMEN, ONE VIEW 11/05/2016 IMPRESSION: No acute intra-abdominal findings. X-RAY KUB 11/09/2016 IMPRESSION: 1. Bibasilar airspace opacities and pleural effusions are demonstrated. 2. Paucity of gas noted throughout the bowel which is nonspecific but could be related to small bowel obstruction. Correlate clinically. X-RAY CHEST ONE VIEW, PORTABLE 11/04/2016 IMPRESSION: Mild increased retrocardiac left basilar opacities possibly low- grade aspiration/atelectasis versus developing pneumonia. Please correlate clinically. Background chronic interstitial disease as before X-RAY CHEST ONE VIEW, PORTABLE 11/05/2016 IMPRESSION: 1. Tubes and lines as above. 2. Left basilar radiopacity. Differential considerations include aspiration, atelectasis, and infection. X-RAY CHEST ONE VIEW, PORTABLE 11/06/2016 IMPRESSION: 1. Support lines and tubes unchanged from prior exam. 2. Pulmonary edema and/or bibasilar pneumonia X-RAY CHEST ONE VIEW, PORTABLE 11/10/2016 IMPRESSION: Persistent pulmonary edema versus pneumonia. X-RAY CHEST ONE VIEW, PORTABLE 11/11/2016 IMPRESSION: Stable examination compared to 11/10/16. 12-lead ECG ECG Interpretation: Sinus rhythm rate 60 Prolonged AL interval Time: 21:40 Interpreted by: ED physician Normal ECG Interpretation: No acute ischemic changes Cardiac Echo Impressions Echocardiogram Report Interpretation Summary This is a limited echocardiogram ordered. The left ventricular cavity is small. There is mild-moderate concentric left ventricular hypertrophy. The ejection fraction is estimated to be 60-65%. Assessment of diastolic parameters indicates normal left ventricular diastolic function and normal filling pressures. The right ventricle grossly appears normal in size with probable normal systolic function. There is moderate to severe mitral annular calcification. There is a porcine aortic valve. The aortic valve is not well visualized. No other echocardiographic abnormalities seen. Assessment & Plan 85 year old male with PMH of CAD, HTN, CAD (on Brilinta anticoagulation) currently being treated for for septic shock with possible underlying pneumonia , GI Bleed, renal failure. Hospital day 10, ventilator day 9. 1. Septic Shock. Present on admission. Ongoing. Pt continues to require blood pressure support. Possible sources include pseudomonas pneumonia. HR has improved and remains mostly in the 60's. - H&H remains stable. 3 units PRBC received initially, has not required additional infusions. - Pt positive ~16,600 ml of fluid. Currently on 40 ml/hr NS - Nor epi 0.09 mcg/kg/min - Vasopressin D/C - Procalcitonin continues to trend down 1.23 - Remains A-febrile with resolved leukocytosis. - Blood cultures negative x 2 - Vigileo in place 2. Hypercarbic Respiratory failure, not present on admission. - Intubated for airway protection and #1. Sedated with fentanyl - Vent settings currently FiO2 0.55, TV 400, PEEP 8, RR 14 - ABG 11/13/2016: pH 7.305, pCO2 48.2, pO2 82.9, HCO3 23.2. - Duonebs scheduled Q4 3. Pneumonia, present on admission. Ongoing. CT suspicious for pneumonia. PCR positive for Coronovirus, sputum grew Pseudomonas - WBC peak of 13.1, currently 5 - Procalcitonin as above - ETT initially placed for airway protection. - ABX coverage per ID - ID following, appreciate their recommendations 4. Renal failure (acute on chronic), present on admission. Ongoing. Pt denies and NSAID use aside from ASA. Pt has Hx of elevated Cr ~ 1.7 last hospital admit 05/2016. CT showed decompressed bladder and no hydronephrosis or nephrolithiasis - Cr on admit 7.45, continues to trend down, but seems to have reached a aleksandr of about 3.6 - today 4.72 - Dialysis held today. Remains anuric. - Given Albumin and Lasix with no effect - Mcmillan cath in place - NS 40/hr - Nephrology following, appreciate their input. 5. Emphysema. Present on admission. CT showed severe centrilobular emphysema. - Duonebs Q4 6. Transaminitis, present on admission. Resolved. Pt reported was taking up to 6 [address] daily. CT showed subcentimeter gallstones or sludge within the gallbladder fundus and cystic duct. The gallbladder wall is not well characterized - Acetaminophen 27.1 on admit - Acetylcysteine/Dextrose course complete - AST/ALT normalized - Total Bili 0.8 7. GI Bleed. Present on admission. Ongoing. EGD showed no evidence of bleed, possibility of a Dieulafoy's lesion - Stool guaiac positive. - Held home meds Brilinta and ASA - H&H remains stable, after receiving 3 units of PRBC's - Lactic acid elevated on admit 3.9, repeat values normal, continue to monitor - Protonix drip D/C per GI. Change to BID - GI following 8. NIDDM. - Currently on sliding scale - Glucose levels remain labile requiring D10 administration 9. Arrythmias. Pt remains bradycardic, with some improvement in rate. - History of CAD - Initial troponin 0.134, repeat 0.143, 0.102, 0.082, this is in the setting of renal failure - Telemetry continues to show 1st degree block with PVC - Echo EF 60%-65%. LVH. - ECG show prolonged AL interval, 1st degree block Disposition: Discussed with patient's this morning at bedside goals of care moving forward. Most importantly his dialysis has been discontinued patient's condition will not improve unless he is discharged to a jail facility where he will remain on dialysis most likely indefinitely and it is uncertain if he could successfully be extubated. It is the patients express wish that he NEVER be admitted to a longterm again and his want to honor that wish. After discussion regarding the remaining options patient's and patients two step sons (also present during the interview) all wish to have aggressive care withheld after they have had a chance to say their final farewells. Total Critical Care time spent 120 min. GI Prophylaxis: Proton Pump Inhibitor VTE Prophylaxis: SCDs VTE Mechanical Devices: Intermittant Pneumatic CD Resuscitation Status: Limited Interventions (DNR but continue other measures) Attending Statement The patient was seen and examined together with Dr. Monroe on 11/13/2016 and I agree with the history, exam and plan as outlined in the note above. BRANDEN MONROE DO Nov 13, 2016 10:09 Sánchez Peterson MD Nov 19, 2016 11:03
--- NOTE | 2016-11-13 14:30 | NUR ---
Pt at 1300hrs Pt was extubated to comfort care at 1245hrs. He had Fentanyl and Ativan gtt for pain and anxiety. He appeared comfortable, and at 1300hrs. MD was notified and he notified family. Family had requested [facility] home and I notified them also.
--- NOTE | 2016-11-13 14:46 | PCM.DC.MED ---
Discharge Summary Date of Service Nov 13, 2016 Dates of Hospitalization Date of Hospital Admission Nov 04, 2016 at 22:13 Date of Discharge: Nov 13, 2016 Providers: Admitting Physician: Stephenie Shetty MD Primary Care Physician: Juan Hollis MD Attending Physician: Stephenie Shetty MD Diagnosis at Time of Discharge Diagnosis at Time of Discharge 1. Expiration 2. Septic Shock (3) 3. Hypercarbic Respiratory failure (2) 4. Pneumonia, gram negative wilfrid. Pseudomonas. (4) 5. Acute renal failure. 6. GI Bleed. 7. DM 2 8. ARDS (1) Consultations Pulmonary Infectious disease Surgery [id number] Nephrology Procedures XRay, CTs & MRIs . CT BRAIN WITHOUT CONTRAST 11/04/2016 IMPRESSION: Chronic left frontal and right parietal encephalomalacia in addition to age- related involutional changes. No acute intracranial process. CT CHEST, ABDOMEN AND PELVIS WITHOUT CONTRAST 11/05/2016 IMPRESSION: 1. Low-density bilateral pleural effusions and basilar consolidation suspicious for pneumonia. 2. Small amount of intra-abdominal ascites. No pneumoperitoneum. 3. Normal appendix. 4. Extensive aortic atherosclerosis and coronary artery calcification. Findings suspicious for high-grade infrarenal abdominal aortic stenosis. However, lack of intravenous contrast limits evaluation. 5. Severe centrilobular emphysema. X-RAY ABDOMEN, ONE VIEW 11/05/2016 IMPRESSION: No acute intra-abdominal findings. X-RAY KUB 11/09/2016 IMPRESSION: 1. Bibasilar airspace opacities and pleural effusions are demonstrated. 2. Paucity of gas noted throughout the bowel which is nonspecific but could be related to small bowel obstruction. Correlate clinically. X-RAY CHEST ONE VIEW, PORTABLE 11/04/2016 IMPRESSION: Mild increased retrocardiac left basilar opacities possibly low- grade aspiration/atelectasis versus developing pneumonia. Please correlate clinically. Background chronic interstitial disease as before X-RAY CHEST ONE VIEW, PORTABLE 11/05/2016 IMPRESSION: 1. Tubes and lines as above. 2. Left basilar radiopacity. Differential considerations include aspiration, atelectasis, and infection. X-RAY CHEST ONE VIEW, PORTABLE 11/06/2016 IMPRESSION: 1. Support lines and tubes unchanged from prior exam. 2. Pulmonary edema and/or bibasilar pneumonia X-RAY CHEST ONE VIEW, PORTABLE 11/10/2016 IMPRESSION: Persistent pulmonary edema versus pneumonia. X-RAY CHEST ONE VIEW, PORTABLE 11/11/2016 IMPRESSION: Stable examination compared to 11/10/16. ECG 12 Lead ECG Interpretation: Sinus rhythm rate 60 Prolonged FL interval Time: 21:40 Interpreted by: ED physician Normal ECG Interpretation: No acute ischemic changes Cardiac Echo Impression Echocardiogram Report Interpretation Summary This is a limited echocardiogram ordered. The left ventricular cavity is small. There is mild-moderate concentric left ventricular hypertrophy. The ejection fraction is estimated to be 60-65%. Assessment of diastolic parameters indicates normal left ventricular diastolic function and normal filling pressures. The right ventricle grossly appears normal in size with probable normal systolic function. There is moderate to severe mitral annular calcification. There is a porcine aortic valve. The aortic valve is not well visualized. No other echocardiographic abnormalities seen. Brief History PALLIATIVE CARE CONSULT requesting provider: Dr. Miguel Ángel Jones PCP Jennifer GUERRREO reason for consult: [facility] 85-year-old gentleman with known severe atherosclerotic vascular disease status post [place] with stenting of CAD and aortic valve porcine replacement in 2007. He has also had stents placed in both carotids. He has known chronic renal insufficiency with a creatinine at baseline in the range of 1.5-1.8 last noted May 2016. He apparently was in his usual state of health which involved walking with a cane or walker and spending a fair amount of time in his recliner. The day before and day of admission he was not drinking much for fluids was taking some by mouth in 4 meals but had a watery stool at home was incontinent and became so weak he was not able to stand up. He was brought to the emergency room with note of melena creatinine of 7.45 elevated transaminases. He became hypotensive and obtunded requiring pressors and intubation. Echocardiogram noting EF of 60-65% moderately severe LVH, chest x- ray noting pulmonary edema versus diffuse infiltrates, brain CT noting left frontal and right parietal old CVAs with evidence of encephalomalacia, CT of chest abdomen pelvis without contrast noting severe centrilobular emphysema and diffuse extensive vascular disease with probable high-grade stenosis of the infrarenal aorta. He lives with his of over 50 years. He apparently is somewhat estranged from his family. His has 2 sons from a prior marriage who live in the area with "an okay relationship" with her . He is an ex smoker having discontinued smoking in 1987. He has a history of chronic low back pain and took regular high doses of acetaminophen and was noted to be toxic on admission. 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 His describes that he is her best friend and only friend. It sounds like they have been very isolated-cantankerous in her words. She verbalizes strong distrust for any staff in a shelter (her was in 1 following one of his surgeries), the government, any moravian, and most people. He is presently in the intensive care unit since his admission on 11/04 intubated on pressors and presently being dialyzed. Hospital Course 85 year old male with PMH of CAD, HTN, CAD (on Brilinta anticoagulation) currently being treated for for septic shock with possible underlying pneumonia , GI Bleed, renal failure. Hospital day 10, ventilator day 9. 1. Septic Shock. Present on admission. Ongoing. Pt continues to require blood pressure support. Possible sources include pseudomonas pneumonia. HR has improved and remains mostly in the 60's. - H&H remains stable. 3 units PRBC received initially, has not required additional infusions. - Pt positive ~16,600 ml of fluid. Currently on 40 ml/hr NS - Nor epi 0.09 mcg/kg/min - Vasopressin D/C - Procalcitonin continues to trend down 1.23 - Remains A-febrile with resolved leukocytosis. - Blood cultures negative x 2 - Vigileo in place 2. Hypercarbic Respiratory failure, not present on admission. - Intubated for airway protection and #1. Sedated with fentanyl - Vent settings currently FiO2 0.55, TV 400, PEEP 8, RR 14 - ABG 11/13/2016: pH 7.305, pCO2 48.2, pO2 82.9, HCO3 23.2. - Duonebs scheduled Q4 3. Pneumonia, present on admission. Ongoing. CT suspicious for pneumonia. PCR positive for Coronovirus, sputum grew Pseudomonas - WBC peak of 13.1, currently 5 - Procalcitonin as above - ETT initially placed for airway protection. - ABX coverage per ID - ID following, appreciate their recommendations 4. Renal failure (acute on chronic), present on admission. Ongoing. Pt denies and NSAID use aside from ASA. Pt has Hx of elevated Cr ~ 1.7 last hospital admit 05/2016. CT showed decompressed bladder and no hydronephrosis or nephrolithiasis - Cr on admit 7.45, continues to trend down, but seems to have reached a aleksandr of about 3.6 - today 4.72 - Dialysis held today. Remains anuric. - Given Albumin and Lasix with no effect - Mcmillan cath in place - NS 40/hr - Nephrology following, appreciate their input. 5. Emphysema. Present on admission. CT showed severe centrilobular emphysema. - Duonebs Q4 6. Transaminitis, present on admission. Resolved. Pt reported was taking up to 6 grams of T[address]ol daily. CT showed subcentimeter gallstones or sludge within the gallbladder fundus and cystic duct. The gallbladder wall is not well characterized - Acetaminophen 27.1 on admit - Acetylcysteine/Dextrose course complete - AST/ALT normalized - Total Bili 0.8 7. GI Bleed. Present on admission. Ongoing. EGD showed no evidence of bleed, possibility of a Dieulafoy's lesion - Stool guaiac positive. - Held home meds Brilinta and ASA - H&H remains stable, after receiving 3 units of PRBC's - Lactic acid elevated on admit 3.9, repeat values normal, continue to monitor - Protonix drip D/C per GI. Change to BID - GI following 8. NIDDM. - Currently on sliding scale - Glucose levels remain labile requiring D10 administration 9. Arrythmias. Pt remains bradycardic, with some improvement in rate. - History of CAD - Initial troponin 0.134, repeat 0.143, 0.102, 0.082, this is in the setting of renal failure - Telemetry continues to show 1st degree block with PVC - Echo EF 60%-65%. LVH. - ECG show prolonged FL interval, 1st degree block Disposition: Discussed with patient's this morning at bedside goals of care moving forward. Most importantly his dialysis has been discontinued patient's condition will not improve unless he is discharged to a assisted facility where he will remain on dialysis most likely indefinitely and it is uncertain if he could successfully be extubated. It is the patients express wish that he NEVER be admitted to a shelter again and his want to honor that wish. After discussion regarding the remaining options patient's and patients two step sons (also present during the interview) all wish to have aggressive care withheld after they have had a chance to say their final farewells. Total Critical Care time spent 120 min. This patient had a very turbulent course. He presented septic and ultimately developed septic shock requiring vasopressor support. He also had hypercarbic respiratory failure and ultimately was intubated. The patient had evidence of possible pneumonia based on tracheal cultures and was covered empirically for Pseudomonas. The patient developed acute renal failure had a dialysis catheter placed and was transiently dialyzed. The patient then developed R and ultimately failed to improve with regards to kidney function. He developed an urea. His dialysis catheter was removed. The patient had persistent ARDS and was unable to wean either FiO2 oxygen set demand or PEEP support. The care met with the family multiple discussions regarding level of care were entertained. Ultimately on the day of expiration the family agreed to compassionate extubation. The patient was extubated and passed way within a short time. Exam Vital Signs (Last) Date Time Temp Pulse Resp B/P Pulse Ox O2 Delivery O2 Flow Rate FiO2 11/13/16 12:02 75 132/50 98 55 11/13/16 07:13 Ventilator 11/13/16 07:13 36.6 18 11/11/16 08:30 6.00 Exam Patient is seen and examined on the day of expiration Test 11/04/16 20:58 11/04/16 21:01 11/05/16 03:40 11/05/16 09:00 Activated Partial Thromboplast Time 38.0sec (22.8-33.0) Acetaminophen Level 27.1ug/mL Rx (10-25) D-Dimer 1.1mg/L (<0.50) Pro-B-Type Natriuretic Peptide 8099pg/mL (0-486) Hold Montero Top Tube Received (Received) Urine Legionella pneumophilia Ag Negative (Negative) Test 11/05/16 10:21 11/05/16 11:15 11/05/16 16:23 11/06/16 02:45 Urine Color Yellow (YELLOW) Urine Appearance Hazy (CLEAR,HAZY) Urine pH 5.5 (5.0-8.0) Urine Specific [place] 1.024 (1.003-1.035) Urine Protein >300mg/dL (NEG,TRACE) Urine Glucose (UA) Negativemg/dL (NEGATIVE) Urine Ketones Tracemg/dL (NEGATIVE) Urine Occult Blood Moderate (NEGATIVE) Urine Nitrite Negative (NEGATIVE) Urine Bilirubin Negative (NEGATIVE) Urine Urobilinogen Normalmg/dL (NORMAL) Urine Leukocyte Esterase Negative (NEGATIVE) Urine RBC 0-2/hpf (0-2) Urine WBC 0-5/hpf (0-5) Urine Epithelial Cells None/hpf (NONE-MOD) Urine Crystals Amorphous urates (NONE Urine Bacteria None/hpf (NONE-FEW) Urine Hyaline Casts None/lpf (NONE) Urine Granular Casts None seen (NONE SEEN) Urine Waxy Casts None seen (NONE SEEN) Urine Red Blood Cell Casts None seen (NONE SEEN) Urine White Blood Cell Casts None seen (NONE SEEN) Urine Mucus None seen (None Seen) Urine Trichomonas None seen (NONE SEEN) Urine Yeast None (NONE SEEN) Urinalysis Comment None Urine Culture Reflexed Not indicated Urine Opiates Screen Negative Urine Methadone Screen Negative Urine Barbiturates Screen Negative Urine Amphetamines Screen Negative Urine Benzodiazepines Screen Negative Urine Cocaine Metabolite Screen Negative Urine Cannabinoids Screen Negative Hold Blue Top Tube Received (Received) Hold [place] Top Tube Received (Received) Total Creatine Kinase 1148U/L (21-232) Hemoglobin A1c 5.9% (4.8-5.6) Test 11/06/16 05:43 11/06/16 10:00 11/06/16 11:45 11/06/16 16:04 Ionized Calcium (Calculated) 3.19mg/dL (3.5-5.2) Prothrombin Time 16.9sec (8.1-12.5) Prothromb Time International Ratio 1.57ratio Strongyloides IgG Antibody Negative (Negative) Hepatitis B Surface Antigen Negative (Negative) Hepatitis B Surface Antibody Non reactive (.) Hepatitis B Core Total Antibody Negative (Negative) Hepatitis C Antibody <0.1s/co ratio (0.0-0.9) Test 11/06/16 21:00 11/08/16 05:05 11/10/16 02:20 11/13/16 03:20 Corrected White Blood Count 9.3th/mm3 (3.8-10.1) Band Neutrophils % 7% (1-5) Nucleated Red Blood Cells 5/100 WBC (0-24) Triglycerides Level 180mg/dL (0-149) Cholesterol Level 52mg/dL (100-199) LDL Cholesterol, Calculated 12.000mg/dL (0-99) VLDL Cholesterol 36.000mg/dL HDL Cholesterol 4mg/dL (>39) Cholesterol/HDL Ratio 13.00 (0.0-4.4) Troponin T 0.082ug/L (0.0-0.011) Prealbumin 8mg/dL (20-40) White Blood Count 5.0th/mm3 (3.8-10.1) Red Blood Count 2.91mil/mm3 (4.40-5.80) Hemoglobin 8.1g/dL (13.8-17.2) Hematocrit 24.7% (41.0-50.0) Mean Corpuscular Volume 84.9fL (81-100) Mean Corpuscular Hemoglobin 27.8pg (27.0-35.0) Mean Corpuscular Hemoglobin Concent 32.8% (32.0-37.0) Red Cell Distribution Width 16.7% (12.3-15.4) Platelet Count 61bil/L (150-400) Neutrophils (%) (Auto) 71.6% (40-74) Lymphocytes (%) (Auto) 13.4% (14-46) Monocytes (%) (Auto) 13.8% (4-12) Eosinophils (%) (Auto) 0.8% (0-5) Basophils (%) (Auto) 0.2% (0-3) Sodium Level 134mEq/L (134-144) Potassium Level 4.9mEq/L (3.5-5.2) Chloride Level 98mEq/L (97-108) Carbon Dioxide Level 21mmol/L (18-29) Blood Urea Nitrogen 38mg/dL (8-27) Creatinine 6.55mg/dL (0.76-1.27) Estimat Glomerular Filtration Rate 9mL/min (>59) Glucose Level 142mg/dL (60-99) Lactic Acid Level 1.0mmol/L (0.4-2.0) Calcium Level 7.6mg/dL (8.5-10.1) Phosphorus Level 6.3mg/dL (2.5-4.9) Magnesium Level 2.0mg/dL (1.6-2.6) Total Bilirubin 0.8mg/dL (0.0-1.2) Aspartate Amino Transf (AST/SGOT) 35U/L (0-50) Alanine Aminotransferase (ALT/SGPT) 26U/L (0-44) Alkaline Phosphatase 126U/L (25-160) Total Protein 5.6g/dL (6.4-8.4) Albumin 2.7g/dL (3.4-5.0) Procalcitonin 1.23ng/mL (0.00-0.08) Microbiology Results culture in process Discharge Medications Discharge Medications Aspirin (Aspirin) 325 Mg Tablet 325 MG PO DAILY Prescribed by: GIGI HUDSON DO Carvedilol (Carvedilol) 3.125 Mg Tablet 3.125 MG PO BID (Reported) Glipizide (Glipizide) 5 Mg Tablet 2.5 MG PO BID (Reported) Losartan Potassium (Losartan Potassium) 100 Mg Tablet 50 MG PO DAILY (Reported) Omeprazole (Omeprazole) 20 Mg Capsule.dr 20 MG PO DAILY (Reported) Rosuvastatin Calcium (Rosuvastatin Calcium) 40 Mg Tablet 40 MG PO DAILY ( Reported) Ticagrelor (Brilinta) 60 Mg Tablet 60 MG PO BID (Reported) Followup Plan Disposition: Time spent 40 minutes Lj Lyle MD Nov 13, 2016 14:46
--- NOTE | 2016-11-22 09:22 | NUR ---
Palliative Care Post-Discharge Follow-Up Call179:15AM This va underwriter called to see how pt.'s , Zena, was coping after pt. at [facility] on 11/13/16. Zena shared that pt.'s service is today and she is feeling very sad and also lonely since pt. . Zena was tearful during the call and expressed she thinks pt's family has been calling her 'to harass me'. This va underwriter offered to send Zena some information about local grief support groups but she declined this offer. This va underwriter asked Zena if she could call again next week and Zena was agreeable to this. Betsy Carpio, CYBER INCIDENT ANALYST, [facility] Palliative Care Services
== END 2016-11-13 13:00 | disposition expired | DRG 870 ==
LOC: SED 20:28 → CCU 22:13
PROVIDERS: ADMIT Specialist; ATTEND Specialist
PROC: 30233N1 Transfusion of Nonautologous Red Blood Cells into Peripheral Vein, Percutaneous Approach (ICD-10-PCS; 2016-11-04)
PROC: 0BH17EZ Insertion of Endotracheal Airway into Trachea, Via Natural or Artificial Opening (ICD-10-PCS; 2016-11-05)
PROC: 4A033R1 Measurement of Arterial Saturation, Peripheral, Percutaneous Approach (ICD-10-PCS; 2016-11-05)
PROC: 02HV33Z Insertion of Infusion Device into Superior Vena Cava, Percutaneous Approach (ICD-10-PCS; 2016-11-05)
PROC: 03HY32Z Insertion of Monitoring Device into Upper Artery, Percutaneous Approach (ICD-10-PCS; 2016-11-05)
PROC: 0DJ08ZZ Inspection of Upper Intestinal Tract, Via Natural or Artificial Opening Endoscopic (ICD-10-PCS; 2016-11-05)
PROC: 30233N1 Transfusion of Nonautologous Red Blood Cells into Peripheral Vein, Percutaneous Approach (ICD-10-PCS; 2016-11-05)
PROC: 5A1955Z Respiratory Ventilation, Greater than 96 Consecutive Hours (ICD-10-PCS; principal; 2016-11-05 07:00)
PROC: 06HM33Z Insertion of Infusion Device into Right Femoral Vein, Percutaneous Approach (ICD-10-PCS; 2016-11-06)
PROC: 5A1D00Z (ICD-10-PCS; 2016-11-06)
PROC: 5A1D00Z (ICD-10-PCS; 2016-11-07)
PROC: 5A1D00Z (ICD-10-PCS; 2016-11-08)
PROC: 5A1D00Z (ICD-10-PCS; 2016-11-09)
DX: A41.9 Sepsis, unspecified organism (principal); J96.02 Acute respiratory failure with hypercapnia; N17.0 Acute kidney failure with tubular necrosis; G92 Toxic encephalopathy; R65.21 Severe sepsis with septic shock; J96.01 Acute respiratory failure with hypoxia; J15.1 Pneumonia due to Pseudomonas; K92.1 Melena; I50.30 Unspecified diastolic (congestive) heart failure; D62 Acute posthemorrhagic anemia; N14.0 Analgesic nephropathy; T39.395A Adverse effect of other nonsteroidal anti-inflammatory drugs [NSAID], initial encounter; Z79.02 Long term (current) use of antithrombotics/antiplatelets; E11.9 Type 2 diabetes mellitus without complications; I10 Essential (primary) hypertension; G89.29 Other chronic pain; M54.9 Dorsalgia, unspecified; Z87.891 Personal history of nicotine dependence; Z95.2 Presence of prosthetic heart valve; J43.2 Centrilobular emphysema; E83.51 Hypocalcemia; Z66 Do not resuscitate